=== PATIENT | male | born 1960 | race Caucasian/White ===

== ENCOUNTER → 2020-06-20 10:43 | Outpatient (CLI) | payer MEDICARE, SELFPAY ==
--- NOTE | 2020-03-28 19:51 | HP.PCM_ITS ---
History and Physical Date of Admission: 03/29/20 Jonathan Day 1960 ? CHIEF COMPLAINT: screening for colon cancer ? HPI: The patient is a 59 year old male who presents for consideration of screening for colon cancer with colonoscopy. Denies previous colonoscopy. Denies blood in stools. Denies changes in bowel habits. Denies unintentional weight loss. Denies family history of colon cancer. He had previous [facility] with placement of stents in 2010, has had no problems since Presently on baby aspirin only, no plavix. He had history of pancreatic cancer, s/p Whipple procedure. ? ? PAST MEDICAL HISTORY CAD (coronary artery disease) Sees Dr. Pittman [facility] 2010, 2 stents Exocrine pancreatic insufficiency 03/23/2014 HTN (hypertension) ? Hyperlipidemia ? History of Pancreatic cancer (HCC) ? Stented coronary artery -?mid LAD REJI,proximal-mid RCA stent Diabetes type 2 ? PAST SURGICAL HISTORY EGD W/O OR W/BRUSH/WASH ? 09/12/15 ENDOSCOPIC ULTRASOUND W/FNA_*FL ? 01/23/2014 ERCP W/O BRUSH/WASH SPECIMEN 01/17/14 Cholangiopancreatography (ERCP) [facility] inpt Placement of 2 coranary stents Whipple procedure 02/20/2014 ? ? Current Outpatient Prescriptions: metFORMIN ER (GLUCOPHAGE XR) 500 mg 24 hr tablet Take 2 tablets by mouth twice daily before meals. glimepiride (AMARYL) 4 mg tablet Take 1 tablet by mouth daily with breakfast. CREON 24,000-76,000 -120,000 unit cpDR TAKE 3 CAPSULES BY MOUTH THREE TIMES DAILY WITH MEALS atorvastatin (LIPITOR) 40 mg tablet Take 1 tablet by mouth once daily. metoprolol tartrate, short acting, (LOPRESSOR) 25 mg tablet Take 1 tablet by mouth twice daily. enteric contrast (will be provided with radiology test) For CT CHESTABD/PEL W IVCON Routine order Administer, As Directed One Time Only, via Oral, Rectal, both Oral and Rectal, Enteric Tube, Stoma or Indwelling Catheter, Enteric Contrast as designated per enteric contrast guidelines lisinopril-hydrochlorothiazide (PRINZIDE,ZESTORETIC) 20-12.5 mg per tablet Take 1 tablet by mouth once daily. COMPOUNDED PRESCRIPTION Abdominal hernia Velcro wrap. # one DX: K43.2 Omeprazole (PRILOSEC) 40 mg capsule Take 1 capsule by mouth once daily. BABY ASPIRIN ORAL Take 81 mg by mouth once daily. ? ? ALLERGIES: Patient has no known allergies. ? PERSONAL HISTORY: Social History Marital status: Spouse name: Years of education: Number of children: Social History Main Topics Smoking status: Never Smoker Smokeless tobacco: Never Used Alcohol use: Yes Comment: 2-3 beers daily, occasional shot of crown Drug use: No ? FAMILY HISTORY ? Hypertension Mother ? ? Breast Cancer Sister ? ? ? REVIEW OF SYSTEMS: General: The patient denies fatigue, denies weight loss, denies weight gain, denies feeling hot, and denies feelings of cold. Eyes: The patient denies glaucoma, denies eye injury/surgery, does not wear glasses or contacts. Ear/Nose/Throat: The patient denies allergies, denies hayfever, denies ear infections, and denies bloody noses. Cardiovascular: The patient denies chest pain, NOTES heart disease, denies high blood pressure,NOTES cardiac stent, denies prior heart attack, denies irregular heart beat, denies high cholesterol, denies poor circulation, denies heart failure, other cardiac issues, denies claudication, denies cold feet, denies peripheral arterial stent. Respiratory: The patient denies tuberculosis, denies pneumonia, denies checo quent cough, denies pulmonary embolism, denies shortness of breath, and denies coughing up blood. Gastrointestinal: The patient denies difficulty swallowing, denies acid reflux, denies ulcers, denies vomiting, denies jaundice/hepatitis, denies gallbladder problems, denies black or tarry stools, denies hemorrhoids, denies bleeding from rectum, denies diverticulitis, denies constipation, denies diarrhea, denies loss of stool control, and NOTES hernias. Kidney/Bladder: The patient denies kidney stones, denies urine infections, and denies bloody urine. Skin: The patient denies a history of skin cancer, denies bleeding/changing moles, and denies a history of skin rash. Neurologic: The patient denies a history of epilepsy/convulsions, denies headaches, denies head/spinal injuries, and denies stroke/TIA. Psychiatric: has been feeling depressed, denies psychiatric medications, and denies voices, denies substance abuse. Endocrine: The patient denies thyroid disorders, NOTES diabetes, and denies hormonal problems. Hematologic: The patient denies a history of bruising, denies bleeding, and denies anemia, denies blood clots. Infections: The patient denies a history of measles and mumps, denies rheumatic fever, and denies sexually transmitted diseases. Musculoskeletal: has neck pain, NOTES back problems, denies sciatica, denies knee/foot trouble, denies arthritis, or denies gout. ? PHYSICAL EXAMINATION: General: The patient is 57 year old male, well nourished, well hydrated in no acute distress. The patient is oriented to time, place, and person. VITALS: Blood pressure 106/78, pulse 72, Ht: 5'6 weight 201# Head ? Normocephalic. EOM intact with sclera clear and no icterus noted. Mouth with mucus membranes moist. Neck - supple with no jugular venous distention noted. Trachea is midline.. No masses noted. Lungs ? clear to auscultation. Normal breath sounds. No rales/rhonchi/wheezing noted. No labored breathing noted, such as retractions. Heart ? normal S1 and S2 auscultated. No rubs/clicks/murmurs noted. Regular rate. Abdomen ? soft and benign. Normal bowel sounds. No abdominal bruits noted. No distention or tympany noted. Difficult to determine if any masses or organomegaly due to body habitus. Extremities ? no calf tenderness noted. No pitting edema noted. Skin ? normal skin integrity. Neurological ? gait normal, no focal deficits noted Psych ? calm and appropriate ? ? IMPRESSION: screening for colon cancer via colonoscopy ? PLAN: I have discussed the above with the patient. I have offered evaluation with colonoscopy. I have explained the procedure to the patient. I have counseled the patient as to the risks of the procedure, including but not limited to: infection, bleeding, injury to any intraabdominal organs such as liver/spleen, perforation of the GI tract, inability to complete the procedure, complications of anesthesia, etc. ? the patient understands. The patient was offered a surgery/procedure. The provider and patient have discussed in detail the risk of exposure to and/or potential harm posed by the COVID-19 virus with having a surgery/procedure at this time versus the risk of delaying the surgery/procedure. It is not possible to know either the risk of delaying the surgery or procedure or chance of getting an infection with perfect accuracy, but a joint decision was made between the patient and the provider to proceed at this time with the scheduled surgery/procedure. The patient wishes to proceed. I have answered all questions to the patient?s satisfaction and the patient has no further questions. . Diagnoses: (Z12.11) Screening for colon cancer (primary encounter diagnosis) (Z79.82) Aspirin long-term use (I25.10, I25.83) Coronary artery disease due to lipid rich plaque
== END ==
PROVIDERS: PCP Family Medicine; Visit Provider Surgery
DX: Z12.11 Encounter for screening for malignant neoplasm of colon (principal); Z53.9 Procedure and treatment not carried out, unspecified reason; I25.10 Atherosclerotic heart disease of native coronary artery without angina pectoris; I25.83 Coronary atherosclerosis due to lipid rich plaque; I10 Essential (primary) hypertension; E78.5 Hyperlipidemia, unspecified; Z79.82 Long term (current) use of aspirin; Z79.84 Long term (current) use of oral hypoglycemic drugs; Z79.899 Other long term (current) drug therapy; I25.2 Old myocardial infarction; Z85.07 Personal history of malignant neoplasm of pancreas; Z95.5 Presence of coronary angioplasty implant and graft; Z90.411 Acquired partial absence of pancreas

== ENCOUNTER → 2023-06-26 | Outpatient (CLI) | payer MEDICARE, SELFPAY ==
--- NOTE | 2023-06-26 07:37 | ECHOD_ITS ---
Reason For Study: CAD/ASHD Procedure This was a 2D Doppler, Color Flow transthoracic echocardiogram. The study was technically difficult. Exam performed in department. Left Ventricle Normal LV size. Mild concentric left ventricular hypertrophy. Mild to moderate global left ventricular systolic dysfunction. The left ventricular ejection fraction is 40 %. Stage 1 diastolic dysfunction. Right Ventricle The right ventricle is not well visualized. Mild global right ventricular systolic dysfunction. Atria The left and right atria are normal. Mitral Valve Trivial mitral valve insufficiency. Tricuspid Valve The tricuspid valve is not well visualized. Aortic Valve Trisinus/trileaflet aortic valve. Mild focal aortic valve calcification. Pulmonic Valve The pulmonic valve is not well visualized. Great Vessels Mild to moderately dilated aortic root. Pericardium/Pleural No pericardial effusion. MMode/2D Measurements & Calculations LVIDd: 4.9 cm IVSd: 1.1 cm Ao root diam: 4.0 cm LVIDs: 3.9 cm LVPWd: 1.2 cm FS: 20.2 % LAV(MOD-sp2): 47.7 ml LVAd ap4: 29.8 cm2 SV(MOD-sp4): 41.0 ml LVLd ap4: 7.9 cm EDV(MOD-sp4): 92.8 ml EDV(sp4-el): 94.8 ml LVAs ap4: 21.0 cm2 LVLs ap4: 7.0 cm ESV(MOD-sp4): 51.8 ml ESV(sp4-el): 54.0 ml EF(MOD-sp4): 44.2 % EF(sp4-el): 43.0 % SV(sp4-el): 40.8 ml LA dimension(2D): 3.7 cm TAPSE: 2.3 cm Time Measurements MV dec time: 0.17 sec Doppler Measurements & Calculations MV E max raad: 47.7 cm/sec Lat Peak E' Raad: 4.4 cm/sec Med Peak E' Raad: 4.0 cm/sec MV A max raad: 66.5 cm/sec E/E' lat: 11.0 E/E' med: 11.8 MV E/A: 0.72 MV V2 max: 70.2 cm/sec MV dec slope: 308.0 cm/sec2 Ao V2 max: 68.4 cm/sec MV max P.0 mmHg Ao max P.9 mmHg MV V2 mean: 46.1 cm/sec Ao V2 mean: 49.1 cm/sec MV mean P.95 mmHg Ao mean P.1 mmHg MV V2 VTI: 16.9 cm Ao V2 VTI: 14.7 cm AV (velocity ratio): 0.98 LV V1 max: 74.5 cm/sec PA V2 max: 66.3 cm/sec LV V1 max P.2 mmHg PA V2 mean: 44.4 cm/sec LV V1 mean P.1 mmHg LV V1 mean: 49.5 cm/sec LV V1 VTI: 14.4 cm ECHO/Echo Complete Interpretation Summary The study was technically difficult. Mild concentric left ventricular hypertrophy. Mild to moderate global left ventricular systolic dysfunction. The left ventricular ejection fraction is 40 %. Stage 1 diastolic dysfunction. Mild global right ventricular systolic dysfunction. Mild focal aortic valve calcification. Mild to moderately dilated aortic root. Recommend CT scan for further evaluatio n Ordering Physician: Anthony Velazquez Referring Physician: Anthony Velazquez Performed By: Ninfa Bingham RCS
--- OUTSIDE RECORDS SUMMARY | 2023-06-26 07:41 | XMS RPT_ITS | CCD ---
Author Name Unknown Address [address] [place] [address] Organization [facility] Care Team Providers Care Pharmacy Teacher Name Role Phone Mo Johnston MD Primary Care Provider Yaya LEE, Darell Mckenna Unavailable Rebecca Salcedo)(Hist) Unavailable Lili Buckley RN Unavailable PROVIDER, UNKNOWN Attending Unavailable PROVIDER, UNKNOWN Admitting Unavailable MO JOHNSTON Primary Care Unavailable LAURITA THURSTON Referring Unavailable NELLIE OLIVAREZ Attending Unavailable NELLIE OLIAVREZ Admitting Unavailable LAURITA THURSTON Attending Unavailable MO JOHNSTON Primary Care Unavailable Mo Johnston MD Primary Care Provider [phone] MO JOHNSTON Primary Care Unavailable JESSICA GOOD Referring Unavailable MO JOHNSTON Primary Care Unavailable JESSICA GOOD Attending Unavailable JESSICA GOOD Referring Unavailable MO JOHNSTON Primary Care Unavailable MO JOHNSTON Attending Unavailable MO JOHNSTON Referring Unavailable MO JOHNSTON Primary Care Unavailable GAUDENCIO CHAND Attending Unavaila ble MO JOHNSTON Primary Care Unavailable JESSICA GOOD Referring Unavailable OM JOHNSTON Primary Care Unavailable JESSICA GOOD Referring Unavailable MO JOHNSTON Primary Care Unavailable JESSICA GOOD Referring Unavailable ALBINA AGUIRRE Attending Unavailable MO JOHNSTON Referring Unavailable MO JOHNSTON Primary Care Unavailable MO JOHNSTON Primary Care Unavailable MO JOHNSTON Attending Unavailable MO JOHNSTON Attending Unavailable MO JOHNSTON Primary Care Unavailable RUSTY JOHNSTONREY A Primary Care Unavailable MO JOHNSTON Referring Unavailable MO JOHNSTON Primary Care Unavailable JESSICA GOOD Referring Unavailable MO JOHNSTON Primary Care Unavailable MO JOHNSTON Attending Unavailable MO JOHNSTON Referring Unavailable MO JOHNSTON Primary Care Unavailable Medications Current Medications Medication Drug Class(es) Dates Sig (Normalized) Sig (Original) atorvastatin 80 mg oral tablet (20 sources) HMG-CoA Reductase Inhibitor Start: 04-07-2023 End: 07-06-2023 take 1 tablet by mouth once daily at bedtime atorvastatin (LIPITOR) 80 mg tablet Take 1 tablet by mouth daily at bedtime. 90 tablet 0 04/07/2023 07/06/2023 Active Completed/Discontinued Medications Medication Drug Class(es) Dates Sig (Normalized) Sig (Original) amylase 125461 unt / lipase 82710 unt / protease 32474 unt delayed release oral capsule (20 sources) Start: 04-23-2023 take 3 capsules by mouth three times daily at mealtime [id number]-[id number] ylase (CREON) 24,000-76,000 -120,000 unit delayed release capsule Indications: Malignant neoplasm of head of pancreas (HCC) Take 3 capsules by mouth three times a day with meals. 270 capsule 5 04/23/2023 Active Problems Active Problems Problem Classification Problem Date Documented Date Episodic/Chronic Acute myocardial infarction (4 [address]) ST elevation (STEMI) myocardial infarction of unspecified site; Translations: [Myocardial infarction] Onset: 04-06-2023 04-07-2023 Chronic Cancer of pancreas (20 sources) Malignant tumor of pancreas; Translations: [Malignant neoplasm of pancreas, unspecified] Onset: 01-31-2014 01-04-2020 Chronic Cataract (1 source) Age-related nuclear cataract, bilateral; Translations: [Nuclear sclerosis of both eyes] Onset: 09-22-2022 Chronic Complications of surgical procedures or medical care (4 sources) Secondary endocrine diabetes mellitus; 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] Onset: 10-13-2022 Chronic Coronary atherosclerosis and other heart disease (20 sources) Coronary atherosclerosis; Translations: [Atherosclerotic heart disease of [place] coronary artery without angina pectoris] Onset: 06-06-2015 07-04-2020 Chronic Coronary atherosclerosis and other heart disease (20 sources) Stented coronary artery; Translations: [Presence of coronary angioplasty implant and graft] 04-09-2021 Episodic Diabetes mellitus with complications (20 sources) Type II diabetes mellitus uncontrolled; Translations: [Type 2 diabetes mellitus with hyperglycemia] Onset: 09-02-2016 Chronic Diabetes mellitus without complication (20 sources) Diabetes mellitus type 2 without retinopathy; Translations: [Type 2 diabetes mellitus without complications] Onset: 12-15-2017 06-23-2018 Chronic Disorders of lipid metabolism (20 sources) Mixed hyperlipidemia; Translations: [Mixed hyperlipidemia] Onset: 06-06-2015 06-06-2015 Chronic Esophageal disorders (20 sources) Gastroesophageal reflux disease without esophagitis; Translations: [Gastro-esophageal reflux disease without esophagitis] Onset: 07-05-2018 07-05-2018 Chronic Essential hypertension (20 sources) Essential hypertension; Translations: [Essential (primary) hypertension] Onset: 06-06-2015 06-06-2015 Chronic Hepatitis (20 sources) Nonalcoholic steatohepatitis; Translations: [Nonalcoholic steatohepatitis (HERNANDEZ)] Onset: 05-28-2022 05-28-2022 Chronic Immunizations and screening for infectious disease (1 source) Vaccination needed; Translations: [Encounter for immunization] Episodic Miscellaneous mental health disorders (20 sources) Primary insomnia; Translations: [Primary insomnia] Onset: 07-04-2020 01-08-2021 Chronic Other circulatory disease (1 source) Abnormal peripheral pulse; Translations: [Other specified symptoms and signs involving the circulatory and respiratory systems] Episodic Other connective tissue disease (1 source) Muscle pain; Translations: [Myalgia, unspecified site] 10-29-2022 Episodic Other eye disorders (20 sources) Bilateral vitreous floaters; Translations: [Other vitreous opacities, bilateral] Onset: 12-15-2017 06-23-2018 Chronic Other eye disorders (1 source) Crystalline deposits in vitreous body, right eye; Translations: [Asteroid hyalosis of right eye] Onset: 09-22-2022 Chronic Other eye disorders (1 source) Other vitreous opacities, bilateral; Translations: [Vitreous floaters of both eyes] Onset: 06-23-2018 Chronic Other liver diseases (2 sources) Steatosis of liver; Translations: [Fatty (change of) liver, not elsewhere classified] Onset: 04-07-2023 04-07-2023 Chronic Other lower respiratory disease (1 source) Blue toes; Translations: [Cyanosis] Episodic Other nutritional; endocrine; and metabolic disorders (2 sources) Obese class II; Translations: [Obesity, unspecified] Onset: 04-06-2023 04-07-2023 Chronic Residual codes; unclassified (1 source) Acquired total absence of pancreas; Translations: [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)] Onset: 10-13-2022 Chronic Past or Other Problems Problem Classification Problem Date Documented Da te Episodic/Chronic Abdominal hernia (20 sources) Hernia of anterior abdominal wall; Translations: [Ventral hernia without obstruction or gangrene] Onset: 06-28-2019 01-08-2021 Episodic Coma; stupor; and brain damage (20 sources) Daytime somnolence; Translations: [Somnolence] Onset: 06-28-2019 06-28-2019 Episodic Fluid and electrolyte disorders (20 sources) Hyperkalemia; Translations: [Hyperkalemia] Onset: 01-16-2021 01-16-2021 Episodic Neoplasms of unspecified nature or uncertain behavior (20 sources) Lesion of eyelid; Translations: [Neoplasm of unspecified behavior of bone, soft tissue, and skin] Onset: 12-15-2017 12-28-2018 Episodic Other aftercare (20 sources) Patient encounter status; Translations: [Other termite exterminator helper (current) drug therapy] Onset: 03-04-2016 01-04-2020 Episodic Other connective tissue disease (13 sources) Plantar fasciitis; Translations: [Plantar fascial fibromatosis] Onset: 10-29-2022 10-29-2022 Episodic Other connective tissue disease (1 source) Myalgia, unspecified site; Translations: [Myalgia] Onset: 10-29-2022 Episodic Other lower respiratory disease (20 sources) Apnea; Translations: [Apnea, not elsewhere classified] Onset: 06-28-2019 06-28-2019 Episodic Other male genital disorders (20 sources) Disorder of prostate; Translations: [Disorder of prostate, unspecified] Onset: 09-09-2016 09-09-2016 Episodic Other screening for suspected conditions (not mental disorders or infectious disease) (20 sources) Other specified abnormal findings of blood chemistry; Translations: [Other abnormal blood chemistry] Onset: 05-11-2022 05-11-2022 Episodic Other skin disorders (20 sources) Callosity; Translations: [Corns and callosities] Onset: 06-28-2019 01-04-2020 Episodic Pancreatic disorders (not diabetes) (20 sources) Exocrine pancreatic insufficiency; Translations: [Exocrine pancreatic insufficiency] Onset: 03-23-2014 03-23-2014 Episodic Spondylosis; intervertebral disc disorders; other back problems (20 sources) Backache; Translations: [Dorsalgia, unspecified] Onset: 06-06-2015 03-04-2016 Episodic Results Test Name Value Interpretation Reference Range Facil ity Vital Signs Date Time Vital Sign Value Performing Clinician Raudeli david 05-22-2023 08:22-0500 Body height 170.2 cm Gaudencio Chand MD Work Phone: [facility] 05-22-2023 08:22-0500 Body weight 89.54 kg Gaudencio Chand MD Work Phone: [facility] 05-22-2023 08:22-0500 Diastolic blood pressure 84 mm[Hg] Gaudencio Chand MD Work Phone: [facility] 05-22-2023 08:22-0500 Respiratory rate 18 /min Gaudencio Chand MD Work Phone: [facility] 05-22-2023 08:22-0500 Systolic blood pressure 148 mm[Hg] Gaudencio Chand MD Work Phone: [facility] 10-29-2022 08:25-0400 Body temperature 97.7 [degF] Mo Johnston MD Work Phone: [facility] 10-29-2022 08:25-0400 Body weight 89.81 kg Mo Johnston MD Work Phone: [facility] 10-29-2022 08:25-0400 Diastolic blood pressure 86 mm[Hg] Mo Johnston MD Work Phone: [facility] 10-29-2022 08:25-0400 Heart rate 80 /min Mo Johnston MD Work Phone: [facility] 10-29-2022 08:25-0400 Respiratory rate 18 /min Mo Johnston MD Work Phone: [facility] 10-29-2022 08:25-0400 Systolic blood pressure 122 mm[Hg] Mo Johnston MD Work Phone: [facility] 09-15-2022 08:16-0400 Body weight 89.36 kg Mo Johnston MD Work Phone: [facility] 09-15-2022 08:16-0400 Diastolic blood pressure 86 mm[Hg] Mo Johnston MD Work Phone: [facility] 09-15-2022 08:16-0400 Heart rate 88 /min Mo Johnston MD Work Phone: [facility] 09-15-2022 08:16-0400 Respiratory rate 18 /min Mo Johnston MD Work Phone: [facility] 09-15-2022 08:16-0400 Systolic blood pressure 126 mm[Hg] Mo Johnston MD Work Phone: [facility] 05-08-2022 08:36-0500 Body height 165.7 cm Mo Johnston MD Work Phone: [facility] 05-08-2022 08:36-0500 Body weight 91.17 kg Mo Johnston MD Work Phone: [facility] 05-08-2022 08:36-0500 Diastolic blood pressure 78 mm[Hg] Mo Johnston MD Work Phone: [facility] 05-08-2022 08:36-0500 Heart rate 84 /min Mo Johnston MD Work Phone: [facility] 05-08-2022 08:36-0500 Respiratory rate 16 /min Mo Johnston MD Work Phone: [facility] 05-08-2022 08:36-0500 Systolic blood pressure 134 mm[Hg] Mo Johnston MD Work Phone: [facility] 04-16-2022 10:32-0500 Body height 166.4 cm Jessica Good APRN.CNP Work Phone: [facility] 04-16-2022 10:32-0500 Body temperature 97.11 [degF] Jessica Bowmanenter CHORE TENDER.FREELANCE DISPLAYER Work Phone: [facility] 04-16-2022 10:32-0500 Body weight 93.44 kg Jessica Good CHORE TENDER.FREELANCE DISPLAYER Work Phone: [facility] 04-16-2022 10:32-0500 Diastolic blood pressure 94 mm[Hg] Jessica Good CHORE TENDER.FREELANCE DISPLAYER Work Phone: [facility] 04-16-2022 10:32-0500 Heart rate 74 /min [place] Good CHORE TENDER.FREELANCE DISPLAYER Work Phone: [facility] 04-16-2022 10:32-0500 SaO2% (BldA) [Mass fraction] 97 % Jessica Bowmanenter CHORE TENDER.FREELANCE DISPLAYER Work Phone: [facility] 04-16-2022 10:32-0500 Systolic blood pressure 134 mm[Hg] Jessica Good CHORE TENDER.FREELANCE DISPLAYER Work Phone: [facility] 08-26-2021 10:10-0400 Diastolic blood pressure 82 mm[Hg] Mo Johnston MD Work Phone: [facility] 08-26-2021 10:10-0400 Systolic blood pressure 118 mm[Hg] Mo Johnston MD Work Phone: [facility] 08-26-2021 09:09-0400 Body weight 87.09 kg Mo Johnston MD Work Phone: [facility] 08-26-2021 09:09-0400 Heart rate 76 /min Mo Johnston MD Work Phone: [facility] 08-26-2021 09:09-0400 Respiratory rate 20 /min Mo Johnston MD Work Phone: [facility] Encounters Encounter Date Encounter Type Care Provider Facility Start: 06-24-2023 End: 06-24-2023 ambulatory MO JOHNSTON Facility:[facility] Start: 05-22-2023 End: 05-22-2023 ambulatory MO JOHNSTON Facility:[facility] Start: 05-22-2023 End: 05-22-2023 Patient encounter procedure Gaudencio Chand MD Work Phone: Endocrinology Procedures Date Procedure Procedure Detail Performing Clinician Start: 09-15-2022 [email or web address] COVI D-19 BIVALENT VACCINE, AGE 12+ YR Mo Johnston MD Work Phone: Start: 05-23-2022 Us abdominal real ti me w/image limited Mo Johnston MD Work Phone: Start: 04-10-2022 Ct abdomen & pelvis w/contrast material Jessica Good CHORE TENDER.FREELANCE DISPLAYER Work Phone: Plan of Treatment Date Care Activity Detail Author Start: 11-22-2027 PNEUMOCOCCAL (3 - PP SV23 if available, else PCV20) PNEUMOCOCCAL (3 - PPSV23 if available, else PCV20) [facility] Start: 11-22-2027 PNEUMOCOCCAL (3 - PP SV23 or PCV20) PNEUMOCOCCAL (3 - PPSV23 or PCV20) [facility] Start: 11-22-2027 Pneumococcal vaccination [facility] Start: 05-08-2027 PROSTATE CANCER SCRE ENING DISCUSSION PROSTATE CANCER SCREENING DISCUSSION [facility] Start: 05-08-2027 Prostate specific an tigen measurement Prostate Cancer Screening Discussion [facility] Start: 01-08-2026 PROSTATE CANCER SCRE ENING DISCUSSION PROSTATE CANCER SCREENING DISCUSSION [facility] Start: 04-23-2024 Annual PCP Team Suppression Crew Leader jaron Disease Visit Annual PCP Team Chronic Disease Visit [facility] Start: 04-07-2024 Hepatitis B surface antibody level LDL Cholesterol [facility] Start: 10-30-2023 ANNUAL PCP TEAM BOTTOM BRUSHER JARON DISEASE VISIT ANNUAL PCP TEAM CHRONIC DISEASE VISIT [facility] Start: 10-14-2023 Hepatitis B screening URINE AL BUMIN:CREATININE RATIO [facility] Start: 10-14-2023 Hepatitis B surface antibody level LDL CHOLESTEROL [facility] Start: 09-23-2023 Glaucoma screening Dilated Retinal E xam [facility] Start: 09-23-2023 Hepatitis C antibody , confirmatory test DILATED RETINAL EXAM [facility] Start: 09-16-2023 ANNUAL PCP TEAM BOTTOM BRUSHER JARON DISEASE VISIT ANNUAL PCP TEAM CHRONIC DISEASE VISIT [facility] Start: 07-06-2023 Hemoglobin A1c measurement HbA1C [facility] Start: 06-24-2023 PNEUMOCOCCAL (3 - PP SV23 or PCV20) PNEUMOCOCCAL (3 - PPSV23 or PCV20) [facility] Start: 05-08-2023 3 comp foot exam completed DIABETIC FOOT EXAM [facility] Start: 05-08-2023 ANNUAL PCP TEAM BOTTOM BRUSHER JARON DISEASE VISIT ANNUAL PCP TEAM CHRONIC DISEASE VISIT [facility] Start: 05-08-2023 BP CONTROLLED (<130/80) BP CONTROLLE D (<130/80) [facility] Start: 05-08-2023 Diabetic foot examination Diabetic F oot Exam [facility] Start: 05-08-2023 Hepatitis B screening URINE AL BUMIN:CREATININE RATIO [facility] Start: 05-08-2023 Hepatitis B surface antibody level LDL CHOLESTEROL [facility] Start: 05-08-2023 SHINGRIX VACCINE (1 of 2) SHINGRIX V ACCINE (1 of 2) [facility] Immunizations Immunization Date Immunization Notes Care Provider Fa cility 01-09-2023 COVID-19 vaccine, ag e 12+ yr, season (PFIZER-BIONTECH) Mo Johnston MD Work Phone: [facility] 12-14-2022 influenza, injectabl e, quadrivalent, contains preservative Sulma Ponce [facility] 09-15-2022 COVID-19 vaccine, ag e 12+ yr, bivalent (PFIZER-BIONTECH) Jasmin Dunham APRN.CNP Work Phone: [facility] 03-07-2022 influenza, high dose seasonal, preservative-free Mo Johnston MD Work Phone: [facility] Work Phone: 03-06-2021 influenza, injectabl e, quadrivalent, preservative free Mo Johnston MD Work Phone: [facility] 01-08-2021 COVID-19 vaccine, ag e 12+ yr (PFIZER-BIONTECH - PURPLE TOP) Mo Johnston MD Work Phone: [facility] 01-04-2020 influenza, injectabl e, quadrivalent, contains preservative Mo Johnston MD Work Phone: [facility] 12-28-2018 influenza, injectabl e, quadrivalent, contains preservative Mo Johnston MD Work Phone: [facility] 06-23-2018 pneumococcal polysaccharide vaccine, 23 valent Mo Johnston MD Work Phone: [facility] 01-13-2018 influenza, injectabl e, quadrivalent, preservative free Mo Johnston MD Work Phone: [facility] 06-29-2017 pneumococcal conjuga te vaccine, 13 valent Mo Johnston MD Work Phone: [facility] 01-26-2017 influenza, injectabl e, quadrivalent, contains preservative Mo Johnston MD Work Phone: [facility] Work Phone: 03-04-2016 influenza, injectabl e, quadrivalent, contains preservative Mo Johnston MD Work Phone: [facility] 02-19-2015 influenza virus vacc ine, unspecified formulation Mo Johnston MD Work Phone: [facility] Work Phone: 01-11-2014 influenza virus vacc ine, unspecified formulation Mo Johnston MD Work Phone: [facility] 05-13-2013 influenza virus vacc ine, unspecified formulation Mo Johnston MD Work Phone: [facility] Work Phone: Payers Date Payer Category Payer Medicare AETNA MEDICARE A ETNA MEDICARE O [id number] 2021-Present [phone] [address] [place] [address] [facility] [id number] 2021 Medicare AETNA MEDICARE A ETNA MEDICARE O [id number] 2021-Present [phone] [address] [place] [address] [facility] [id number] 2021 Medicare [id number] 2020 Medicare HUMANA MEDICARE HUMANA GOLD PLUS [id number] 2020-2021 [address] [address] [place] [address] HMO [id number] 1960 Unknown [id number] Social History Date Type Detail Facility Start: 03-22-2014 Tobacco smoking stat [facility] Never smoked tobacco [facility] Start: 03-22-2014 Tobacco use and exposure Smokeless tobacco non-user [facility] Start: 06-13-2021 End: 05-22-2023 Alcohol intake Current drinker of alcohol (finding) [facility] Start: 09-06-2015 History SDOH Alcohol Comment 2-3 beers daily, occasional shot of crown [facility] Start: 1960 Sex Assigned At Not on file C [facility] Start: 04-20-2021 End: 05-20-2021 Exposure to SARS-CoV-2 (event) Not sure [facility] Start: 01-13-2022 End: 01-23-2022 Exposure to SARS-CoV-2 (event) Unable to assess [facility] Start: 09-05-2022 End: 09-22-2022 History of Social function [facility] Work Phone: Start: 09-05-2022 End: 09-22-2022 Tobacco use panel [facility] Work Phone: Adult Depression Screening Assessment 0 [facility] Work Phone: (I/We) worried wheth er (my/our) food would run out before (I/we) got money to buy more. Never true [facility] Work Phone: In the past 12 month s, was there a time when you were not able to pay the mortgage or rent on time? No [facility] Work Phone: Medical Equipment Procedure Code Equipment Code Equipment Origin al Text Equipment Identifier Dates Start: 04-24-2021 End: 05-28-2022 Clinical Notes 07-24-2021 to 05-22-2023 Patient InstructionsBeGaudencio wells MD - 05/22/2023 8:47 AM Ena Warner LPN - 05/14/2023 2:01 PM ESTTelephone Encounter - Mo Johnston MD - 03/17/2023 4:18 PM EST Note Date & Type Note Facility 05-22-2023 Note HNO ID: [id number] Author: GAUDENCIO CHAND MD Service: ? Author Type: Physician Type: Progress Notes Filed: 05/22/2023 12:34 Note Text: [facility] Initial Clinic Visit Note Referred by: Mo Johnston MD Chief complaint: Uncontrolled Diabetes Mellitus s/p pancreatectomy My final recommendations will be communicated back to the requesting physician by way of shared medical record or letter via US mail. History of present illness: This is a 62 year old male presenting as a new patient to me for evaluation and management of diabetes mellitus acquired likely secondary to pancreatectomy (in 2013) due to pancreatic cancer. He was diagnosed with DM in 2017 initially She was seen by Endocrinology in the past by Jasmin Dunham APRN. FREELANCE DISPLAYER here in [facility] 05/2022. In the last one year he was not following any Admitting Office Escort, and his PCP was managing his diabetes. In addition, he also has a history of HTN, HLD, CAD s/p 6 stents (2 stents in 2010 and 4 stents on second ME in Mar 2023) History copied from chart documentation in last endo note 05/28/2022: Jonathan Montanez is a 61 year old male who presents here today for follow up pancreas cancer. Per Dr. Skaggs's previous note: H/o HTN and CAD (ME 2010; treated with PCI with stent x2) who developed painless jaundice. CT revealed dilatation of both the biliary tree and pancreatic ductal system. ERCP showed a distal obstruction and a stent was placed. [facility] 01/23/2014 which showed a 3.3 cm lesion with encroachment upon the portal vein. The FNA results revealed adenocarcinoma. Underwent diagnostic laparoscopy, laparoscopic liver biopsy (Segment IV) and classic pancreaticoduodenectomy 03/22/2014. Pathology: 1. Liver, biopsy (A) - Benign von Meyenberg complexes. - No evidence of malignancy. 2. Duodenal wall, biopsy (B) - Fibroadipose tissue with acute and chronic inflammation. - No evidence of malignancy. 3. Bile duct margin, excision (C) - Negative for dysplasia or malignancy. 4. Pancreatic neck margin, excision (D) - Positive for carcinoma. 5. Whipple with gallbladder, pancreaticoduodenectomy with cholecystectomy (E) - Invasive well-differentiated adenocarcinoma of the pancreas. - See synoptic report. - Gallbladder with chronic cholecystitis, cholesterolosis and acute fibrinous serositis. 6. Pancreatic neck, new margin, excision (F) - Positive for carcinoma with perineural invasion. 7. Extended pancreatic neck, excision (G) - Invasive adenocarcinoma. 8. SMA margin, excision (H) - SMA and portal veins margins free of tumor. 9. Newest pancreatic margin, excision (I) - Negative for tumor. 10. Pancreatic body, excision (J) - Negative for tumor. He has been on insulin since diagnosis, but he could not give me the time line of addition of other medications No Hospitalizations for DKA or HHS No family history of diabetes mellitus Has poor control for a long time. Had ME during 2022 had 4 stents Symptoms -Polyuria: no -Polydipsia: no -Weight changes:no -No tingling or numbness in feet Complications: Cardiovascular -- Yes HTN, HLP, CAD with ME most recently in Mar 2023 Statin Use -- Yes Asprin use- Yes, on dual antiplatelet medications at this time Retinopathy -- No, last exam likely in June 2022 per patient. Chart review shows optometry appt in 09/2022, but he could not tell me if he has seen an banquet server on call or retina specialist in the past. No retinopathy per patient and documentation in 09/2022 Nephropathy -- No- Alb/creatine in 08/2022 at 17 mg/g of Cr CELENA/ARB Use --lisinopril 10 mg once daily Polyneuropathy -- Denies Obesity -- Yes Other -- No . Diabetes Medications -Current regimen: Insulin Tresiba U-100 32 units once at bedtime, insulin Fiasp 5 units 3 times daily with meals, Trulicity 3 mg once weekly, metformin XR 1000 mg twice daily -Misses doses: None -Skips melas- no -No adverse medication effects -Rotating injection sites- yes, administers on abdomen - Previously Used DM Meds: Yes Was on Ozempic but was on back ordered and had to switch to Trulicity, does not remember how long ago reports that other people had to lose weight more than him which is wrong - takes Trulicity on Thursday - does not check BG at home - Dexcom was not covered previously - Reports that his pay is 1500 per month and reports that I should know that before I ask him about blood glucose checks -Hypoglycemic episodes: no . Lifestyle -Exercise: walking 45 mins every morning -Diet: Breakfast: sugar free oat meal, half a bagel with pea nut butter Lunch: salad and meat or chicken Dinner: could be anything, because at that time is home Snacks: nuts at 2 to 3 pm Diet pop, water, gaterade ROS: Pertinent as per HPI Past Medical History PAST MEDICAL HISTORY Diagnosis Date Cervical pain (neck) (more content not included)... [facility] 05-22-2023 Instructions Gaudencio Chand MD - 05/22/2023 9:08 AM EST Increase Tresiba to 36 units and increase Fiasp to 10 units with each meal documented in this encounter [facility] 05-22-2023 History of Present illness Narrative [facility] Initial Clinic Visit Note Referred by: Mo Johnston MD Chief complaint: Uncontrolled Diabetes Mellitus s/p pancreatectomy My final recommendations will be communicated back to the requesting physician by way of shared medical record or letter via US mail. History of present illness: This is a 62 year old male presenting as a new patient to me for evaluation and management of diabetes mellitus acquired likely secondary to pancreatectomy (in 2013) due to pancreatic cancer. He was diagnosed with DM in 2017 initially She was seen by Endocrinology in the past by Jasmin Dunham APRN. 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 In the last one year he was not following any Admitting Office Escort, and his PCP was managing his diabetes. In addition, he also has a history of HTN, HLD, CAD s/p 6 stents (2 stents in 2010 and 4 stents on second ME in Mar 2023) History copied from chart documentation in last endo note 05/28/2022: Jonathan Montanez is a 61 year old male who presents here today for follow up pancreas cancer. Per Dr. Skaggs's previous note: H/o HTN and CAD (ME 2010; treated with PCI with stent x2) who developed painless jaundice. CT revealed dilatation of both the biliary tree and pancreatic ductal system. ERCP showed a distal obstruction and a stent was placed. [facility] 01/23/2014 which showed a 3.3 cm lesion with encroachment upon the portal vein. The FNA results revealed adenocarcinoma. Underwent diagnostic laparoscopy, laparoscopic liver biopsy (Segment IV) and classic pancreaticoduodenectomy 03/22/2014. Pathology: 1. Liver, biopsy (A) - Benign von Meyenberg complexes. - No evidence of malignancy. 2. Duodenal wall, biopsy (B) - Fibroadipose tissue with acute and chronic inflammation. - No evidence of malignancy. 3. Bile duct margin, excision (C) - Negative for dysplasia or malignancy. 4. Pancreatic neck margin, excision (D) - Positive for carcinoma. 5. Whipple with gallbladder, pancreaticoduodenectomy with cholecystectomy (E) - Invasive well-differentiated adenocarcinoma of the pancreas. - See synoptic report. - Gallbladder with chronic cholecystitis, cholesterolosis and acute fibrinous serositis. 6. Pancreatic neck, new margin, excision (F) - Positive for carcinoma with perineural invasion. 7. Extended pancreatic neck, excision (G) - Invasive adenocarcinoma. 8. SMA margin, excision (H) - SMA and portal veins margins free of tumor. 9. Newest pancreatic margin, excision (I) - Negative for tumor. 10. Pancreatic body, excision (J) - Negative for tumor. He has been on insulin since diagnosis, but he could not give me the time line of addition of other medications No Hospitalizations for DKA or HHS No family history of diabetes mellitus Has poor control for a long time. Had ME during 2022 had 4 stents Symptoms -Polyuria: no -Polydipsia: no -Weight changes:no -No tingling or numbness in feet Complications: Cardiovascular -- Yes HTN, HLP, CAD with ME most recently in Mar 2023 Statin Use -- Yes Asprin use- Yes, on dual antiplatelet medications at this time Retinopathy -- No, last exam likely in June 2022 per patient. Chart review shows optometry appt in 09/2022, but he could not tell me if he has seen an banquet server on call or retina specialist in the past. No retinopathy per patient and documentation in 09/2022 Nephropathy -- No- Alb/creatine in 08/2022 at 17 mg/g of Cr CELENA/ARB Use --lisinopril 10 mg once daily Polyneuropathy -- Denies Obesity -- Yes Other -- No . Diabetes Medications -Current regimen: Insulin Tresiba U-100 32 units once at bedtime, insulin Fiasp 5 units 3 times daily with meals, Trulicity 3 mg once weekly, metformin XR 1000 mg twice daily -Misses doses: None -Skips melas- no -No adverse medication effects -Rotating injection sites- yes, administers on abdomen - Previously Used DM Meds: Yes Was on Ozempic but was on back ordered and had to switch to Trulicity, does not remember how long ago reports that other people had to lose weight more than him which is wrong - takes Trulicity on Thursday - does not check BG at home - Dexcom was not covered previously - Reports that his pay is 1500 per month and reports that I should know that before I ask him about blood glucose checks -Hypoglycemic episodes: no . Lifestyle -Exercise: walking 45 mins every morning -Diet: Breakfast: sugar free oat meal, half a bagel with pea nut butter Lunch: salad and meat or chicken Dinner: could be anything, because at that time is home Snacks: nuts at 2 to 3 pm Diet pop, water, gaterade ROS: Pertinent as per HPI Past Medical History PAST MEDICAL HISTORY Diagnosis Date Cervical pain (neck) 06/06/2015 Corns and callus 06/28/2019 Coronary artery disease due to lipid rich plaque 06/06/2015 Diabetic eye exam (HCC) 01/13/2019 Last done: 01/13/2019 Elevated LFTs 05/11/2022 Essential hypertension Exocrine pancreatic insufficiency 03/23/2014 GERD without esophagitis 07/05/2018 Growth of eyelid 12/15/2017 Incisional hernia, without obstruction or gangrene 06/29/2017 Medicare annual wellness visit, subsequent 06/29/2017 Medicare Part B: 08/11/2016 last done: 05/08/2022 Mixed hyperlipidemia Pancreatic cancer (HCC) Primary insomnia 07/04/2020 Stented coronary artery Mid LAD REJI,proximal-mid RCA stent Type 2 diabetes mellitus without retinopathy (HCC) 12/15/2017 Uncontrolled type 2 diabetes mellitus without complication, without long-term current use of insulin 09/02/2016 Upper back pain on left side 06/06/2015 Ventral hernia without obstruction or gangrene 06/28/2019 Vitreous floaters of both eyes 12/15/2017 Past Surgical History PAST SURGICAL HISTORY Procedure Laterality Date CORONARY STENT EA VESSEL 04/05/2023 4 stents to RCA ENDOSCOPIC ULTRASOUND W/FNA_*FL 01/23/2014 ERCP DX COLLECTION SPECIMEN BRUSHING/WASHING 01/17/2014 Cholangiopancreatography (ERCP) [facility] [place] inpt ESOPHAGOGASTRODUODENOSCOPY TRANSORAL DIAGNOSTIC 09/12/2015 EGD ([facility] [place]) PAST SURGICAL HISTORY OF 2010 2 coranary stents PAST SURGICAL HISTORY OF 02/20/2014 Whipple procedure Family History FAMILY HISTORY Problem Relation Age of Onset Hypertension Mother Breast Cancer Sister Diabetes Brother other (COVID) Brother No Ocular Disease No Family History Social History Social History Tobacco Use Smoking status: Never Smokeless tobacco: Never Vaping Use Vaping Use: Never used Substance Use Topics Alcohol use: Yes Comment: 2-3 beers daily, occasional shot of crown Drug use: No Allergies ALLERGIES No Known Allergies Current Medications Current Outpatient Medications Medication Sig Dispense Refill pfpvar-zduiacsp-ahusbrd (CREON) 24,000-76,000 -120,000 unit delayed release capsule Take 3 capsules by mouth three times a day with meals. 270 capsule 5 lisinopril (ZESTRIL) 10 mg tablet Take 1 tablet by mouth once daily. 90 tablet 1 metoprolol succinate ER (TOPROL XL) 25 mg 24 hr tablet Take 0.5 tablets by mouth once daily. 45 tablet 1 metFORMIN ER (GLUCOPHAGE XR) 500 mg 24 hr tablet Take 2 tablets by mouth two times a day before meals. 360 tablet 1 ticagrelor (BRILINTA) 90 mg tablet Take 1 tablet by mouth two times a day. 60 tablet 11 atorvastatin (LIPITOR) 80 mg tablet Take 1 tablet by mouth daily at bedtime. 90 tablet 0 dulaglutide (TRULICITY) 3 mg/0.5 mL pen injector Inject 3 mg subcutaneously one time a week. 4 Each 5 insulin degludec (TRESIBA FLEXTOUCH U-100) 100 unit/mL (3 mL) injection pen Inject 32 Units subcutaneously daily at bedtime. 15 mL 5 cyanocobalamin (VITAMIN B-12) 1,000 mcg tab Take 1 tablet by mouth once daily. With food 90 tablet 3 insulin aspart, niacinamide, (FIASP FLEXTOUCH U-100 INSULIN) 100 unit/mL (3 mL) pen Inject 5 units with meals 5 Each 3 MEDICAL SUPPLY Sig: Abdominal hernia Velcro wrap. # one DX: K43.2 1 Device 0 BABY ASPIRIN ORAL Take 81 mg by mouth once daily. Blood-Glucose Sensor (DEXCOM G7 SENSOR) valentin Change sensor every 10 days. USE FOR CONTINUOUS GLUCOSE MONITORING. E10.65 (Patient not taking: Reported on 05/22/2023) 10 Each 3 Blood-Glucose Meter,Continuous (DEXCOM G7 FIELD SERVICES MANAGER) [facility] [place] Dispense one seam feller kit. USE FOR CONTINUOUS GLUCOSE MONITORING. E10.65 (Patient not taking: Reported on 05/22/2023) 1 Each 0 Insulin [place], Disposable, (BD TONE 2ND GEN PEN NEEDLE) 32 gauge x 5/32 Use to inject insulin 4 time daily. (Patient not taking: Reported on 05/22/2023) 400 Each 3 Lancets lancets Test 2 times daily, Insulin Dep? Yes E11.9 DM 2 (Patient not taking: Reported on 05/22/2023) 200 Each 4 blood sugar diagnostic (BLOOD GLUCOSE TEST) test strip Test 2 times daily, Insulin Dep? Yes E11.9 DM 2 (Patient not taking: Reported on 05/22/2023) 200 Strip 4 COMPOUNDED PRESCRIPTION Abdominal hernia Velcro wrap. # one DX: K43.2 (Patient not taking: Reported on 05/22/2023) 1 Device 0 No current facility-administered medications for this visit. Labs Component Latest Ref Rng & Units 10/13/2022 04/06/2023 04/07/2023 Protein, Total 6.3 - 8.0 g/dL 7.0 Albumin 3.9 - 4.9 g/dL 4.1 Calcium 8.5 - 10.2 mg/dL 9.6 8.9 Bilirubin, Total 0.2 - 1.3 mg/dL 0.6 Alkaline Phosphatase 38 - 113 U/L 62 AST ALT 10 - 54 U/L 65 (H) Glucose 74 - 99 mg/dL 301 (H) 151 (H) BUN 9 - 24 mg/dL 13 12 Creatinine 0.73 - 1.22 mg/dL 0.76 0.74 Sodium 136 - 144 mmol/L 129 (L) 132 (L) Potassium 3.7 - 5.1 mmol/L 5.0 4.3 Chloride 97 - 105 mmol/L 97 97 CO2 22 - 30 mmol/L 22 26 Anion Gap 9 - 18 mmol/L 10 9 eGFR >=60 mL/min/1.73m 104 104 Cholesterol, Total <200 mg/dL 133 Triglyceride <150 mg/dL 168 (H) HDL Cholesterol >39 mg/dL 46 Non HDL Cholesterol <130 mg/dL 87 Fasting Time hrs 8 VLDL Cholesterol <30 mg/dL 34 (H) TC:HDL Ratio <5.10 2.89 LDL Cholesterol <100 mg/dL 53 LDL:HDL Ratio <2.54 1.15 Total Cholesterol, Nonfasting <200 mg/dL 145 Triglycerides, Nonfasting <150 mg/dL 90 HDL Cholesterol, Nonfasting >39 mg/dL 63 LDL Cholesterol, Nonfasting <100 mg/dL 64 Non HDL Cholesterol, Nonfasting <130 mg/dL 82 VLDL Cholesterol, Nonfasting <30 mg/dL 18 Total Chol/HDL Ratio, Nonfasting <5.10 mg/dL 2.30 LDL/HDL Ratio, Nonfasting <2.54 mg/dL 1.02 Creatinine, Ur Random (UCRR) 20.0 - 300.0 mg/dL 70.1 Albumin, Urine Random mg/L 16.5 Albumin/Creat Ratio <30 mg/g 24 Hemoglobin A1C 4.3 - 5.6 % 13.9 (H) 14.1 (H) Estimated Average Glucose mg/dL 352 358 Vitals: 05/22/23 0822 BP: 148/84 BP Site: Right Arm BP Position: Sitting BP Cuff Size: Regular Adult Resp: 18 Weight: 89.5 kg (197 lb 6.4 oz) Height: 170.2 cm (5' 7 ) Physical Exam GENERAL: Well nourished, obese, well hydrated, in no distress and oriented x 3 EYES: no thyroid eye signs, EOMI NECK: no tenderness and adenopathy THYROID: Non-tender to palpable, no evidence of goiter, no nodules palpable LUNGS: Unlabored on room air HEART: regular rate and rhythm GI: abdomen is soft, nontender, Injections sites without lipodystrophy EXTREMITIES: no edema NEURO: normal strength, no tremor, monofilament testing normal OTHER: Acanthosis None Assessment and Plan Poorly controlled Diabetes Mellitus s/p pancreatectomy -A1c on 04/06/2023 was 14.1% -eGFR on 04/07/2023 was 104 -Current regimen- Insulin Tresiba U-100 32 units once at bedtime, insulin Fiasp 5 units 3 times daily with meals, Trulicity 3 mg once weekly, metformin XR 1000 mg twice daily Plan: - Recommended increasing Tresiba to 36 units daily and Fiasp to 10 units with each meal Continue Trulicity and Metformin as is expecting to help with weight loss - Likely high insulin resistance (high doses of insulin requirement as compared to weight) and also reviewed compliance - Extensively discussed about checking BG to help guide management for better blood sugars control, especially that strips might be less expensive that Trulicity - Dexcom G7 sensor prescriptions sent and recommended sharing the data with us in the next 3 weeks to make any further changes (on Medicare) -Check blood sugar once daily (alternating each day with fasting, prelunch, predinner, and bedtime BG) so glycemic control can be assessed at various times points in the day until Dexcom is available to him -Call if blood sugar consistently <80 mg/dl or >200 mg/dl- advised if fasting more than 200 mg/dl consistently for 3 days, can increase dose of tresiba by 2 units each time upto 40 units daily before the next follow up -Lifestyle modifications have been discussed with the patient - Offered diabetes education but patient declined Hypertension -Today BP 148/84 -Current antihypertensive therapy: Lisinopril 10 mg once daily, metoprolol succinate ER 12.5 mg once daily -Advised low salt diet and follow up with cardiology Dyslipidemia, history of ME -Last lipid panel on 04/07/2023 shows total cholesterol 133 mg/dL, triglycerides 168 mg/dL, LDL 53 mg/dL -Currently on Statin therapy: Atorvastatin 80 mg once daily -Statin associated side effects: Reports no statin associated side effects Obesity Class I with serious comobidity -The main risk factors for current weight include increased consumption of high calorie/process foods, irregular eating patterns, suboptimal physical activity. Our goal is to treat obesity to decrease long-term medical complications, comorbidities and improve lifestyle ---Atleast 150 mins of physical activity per week has been encouraged ---A healthy diet with emphasis on intake of vegetables, fruit, nuts, whole grain, lean animal protein and fish with minimal intake of trans fats, processed meats, refined carbohydrates, and sweetened beverages has been encouraged RTC in 2 months with or Jasmin Dunham APRN I spent a total of 70 minutes on the date of the service which included preparing to see the patient, dima-ni-[id number] patient care, completing clinical documentation, obtaining and/or reviewing separately obtained history, performing a medically appropriate examination, counseling and educating the patient/family/caregiver, ordering medications, tests, or procedures, and independently interpreting results (not separately reported). Gaudencio Chand MD Endocrinology Associate Staff [facility] Endocrinology and Metabolism [place] [phone] documented in this encounter [facility] 05-14-2023 Note HNO ID: [id number] Author: ENA BRUSH LPN Service: ? Author Type: LICENSED NURSE Type: Progress Notes Filed: 05/14/2023 14:30 Note Text: Scan on 05/14/2023 1:56 PM by Oscar Brown PA-C: Consultation - Cardiology Scan on 05/14/2023 1:45 PM by Oscar Brown PA-C: Consultation - Cardiology [facility] 05-14-2023 History of Present illness Narrative Scan on 05/14/2023 1:56 PM by Oscar Brown PA-C: Consultation - Cardiology Scan on 05/14/2023 1:45 PM by Oscar Brown PA-C: Consultation - Cardiology documented in this encounter [facility] 05-01-2023 Note HNO ID: [id number] Author: LAURO BARRIGA RN Service: ? Author Type: Registered Nurse Type: Progress Notes Filed: 05/01/2023 09:53 Note Text: RTOG [id number] A Phase II-R and A Phase III Trial Evaluating both *Erlotinib (PH II-R) and Chemoradiation (PH III) as Adjuvant Treatment for Patients with Resected Head of Pancreas Adenocarcinoma Registration Information: Informed Consent Signed 03/27/2014 Randomization Date Step 1: 04/24/2014 Treatment Arm: Step 1 Arm 1: Gemcitabine alone or combination chemotherapy x 5 months Randomization Date Step 2: 08/31/2014 Treatment Arm: Step 2 Arm 4: 1 month of gemcitabine or combination chemotherapy followed by XRT with either capecitabine or 5-FU Study ID [id number] Consent to optional samples Yes Time Point 9 Year Follow Up Yearly OV with CXR/CT's/CA 19-9/PS Treatment Plan: Treatment Dose Start Date Frequency End date Gemcitabine 2,170/mg 04/27/2014 Gemcitabine alone or combination chemotherapy x 5 months 08/29/2014 Gemcitabine 2,170/mg 09/12/2014 1 month of gemcitabine 09/26/2014 Radiation 5040 cGy 10/09/2014 5040 cGy in 28 fx 11/16/2014 Clinical Trial Specific Testing Test Dates Completed Due Next Date CT Scan Abdomen 04/24/2023 04/24/2024 Chest x-ray 04/24/2023 04/24/2024 CA-19 04/24/2023 04/24/2024 Clinical Trial Draw Progression QOLs Last 24 Months N/A Completed Baseline Weight (03/22/2014) 96.6 kg Creatinine Clearance 05/01/2023 112 mL/min ECOG 0 05/01/2023 Weight 90.6 kg (199 lb 12.8 oz) BSA 0 BMI 0 Temp 36.8 ?C (98.2 ?F) Pulse 85 BP 132/89 Patient seen today for 9 year follow up visit with Jessica Good APRN, CNP. Patient is stating overall he feels he is doing well, but had a second heart attack on and is doing outpatient cardiac rehab. Patient denies fatigue or pain. Patient is agreeable to annual follow-up continuation for disease evaluation. Current Outpatient Medications Medication Sig Dispense Refill iv contrast (will be provided with radiology test) CT Chest ABD/PEL-Inject, intravenously, once for 1 dose.No IV access, insert saline lock prior to the beginning of sedation, infusion, injection of imaging exam. Discontinue saline lock post exam. If Pt. has a central line or IVAD, may access for administration according to line specific nursing protocol. Once exam is complete flush line and de-access according to line specific nursing protocol in the CT contrast administration guidelines link. 1 Each 0 enteric contrast (will be provided with radiology test) For CT CHESTABD/PEL W IVCON Routine order Administer, As Directed One Time Only, via Oral, Rectal, both Oral and Rectal, Enteric Tube, Stoma or Indwelling Catheter, Enteric Contrast as designated per enteric contrast guidelines 1 Each 0 xdagmg-whegalvz-gxlkmxn (CREON) 24,000-76,000 -120,000 unit delayed release capsule Take 3 capsules by mouth three times a day with meals. 270 capsule 5 lisinopril (ZESTRIL) 10 mg tablet Take 1 tablet by mouth once daily. 90 tablet 1 metoprolol succinate ER (TOPROL XL) 25 mg 24 hr tablet Take 0.5 tablets by mouth once daily. 45 tablet 1 metFORMIN ER (GLUCOPHAGE XR) 500 mg 24 hr tablet Take 2 tablets by mouth two times a day before meals. 360 tablet 1 ticagrelor (BRILINTA) 90 mg tablet Take 1 tablet by mouth two times a day. 60 tablet 11 atorvastatin (LIPITOR) 80 mg tablet Take 1 tablet by mouth daily at bedtime. 90 tablet 0 dulaglutide (TRULICITY) 3 mg/0.5 mL pen injector Inject 3 mg subcutaneously one time a week. 4 Each 5 insulin degludec (TRESIBA FLEXTOUCH U-100) 100 unit/mL (3 mL) injection pen Inject 32 Units subcutaneously daily at bedtime. 15 mL 5 Blood-Glucose Sensor (DEXCOM G7 SENSOR) valentin Change sensor every 10 days. USE FOR CONTINUOUS GLUCOSE MONITORING. E10.65 10 Each 3 Blood-Glucose Meter,Continuous (DEXCOM G7 FIELD SERVICES MANAGER) [facility] [place] Dispense one seam feller kit. USE FOR CONTINUOUS GLUCOSE MONITORING. E10.65 1 Each 0 cyanocobalamin (VITAMIN B-12) 1,000 mcg tab Take 1 tablet by mouth once daily. With food 90 tablet 3 insulin aspart, niacinamide, (FIASP FLEXTOUCH U-100 INSULIN) 100 unit/mL (3 mL) pen Inject 5 units with meals 5 Each 3 Insulin [place], Disposable, (BD OTNE 2ND GEN PEN NEEDLE) 32 gauge x 5/32 Use to inject insulin 4 time daily. 400 Each 3 Lancets lancets Test 2 times daily, Insulin Dep? Yes E11.9 DM 2 200 Each 4 blood sugar diagnostic (BLOOD GLUCOSE TEST) test strip Test 2 times daily, Insulin Dep? Yes E11.9 DM 2 200 Strip 4 MEDICAL SUPPLY Sig: Abdominal hernia Velcro wrap. # one DX: K43.2 1 Device 0 COMPOUNDED PRESCRIPTION Abdominal hernia Velcro wrap. # one DX: K43.2 1 Device 0 BABY ASPIRIN ORAL Take 81 mg by mouth once daily. No current facility-administered medications for this visit. Toxicities per CTCAE v5 Hyperglycemia - Grade 1. Start Date: PRIOR TO STUDY. Attribution: Unrelated. Drugs to Treat: Insulin. Action required: Jessica Educated patient on b (more content not included)... [facility] 05-01-2023 Note HNO ID: [id number] Author: JESSICA GOOD APRN.FREELANCE DISPLAYER Service: ? Author Type: Nurse Practitioner Type: Progress Notes Filed: 05/01/2023 09:49 Note Text: Chief Complaint Patient presents with: Established Patient HPI: Jonathan Montanez is a 62 year old male who presents here today for follow up pancreas cancer. Per Dr. Skaggs's previous note: H/o HTN and CAD (ME 2010; treated with PCI with stent x2) who developed painless jaundice. CT revealed dilatation of both the biliary tree and pancreatic ductal system. ERCP showed a distal obstruction and a stent was placed. Subsequently referred to the [facility] for an EGD/EUS on 01/23/2014 which showed a 3.3 cm lesion with encroachment upon the portal vein. The FNA results revealed adenocarcinoma. Underwent diagnostic laparoscopy, laparoscopic liver biopsy (Segment IV) and classic pancreaticoduodenectomy 03/22/2014. Pathology: 1. Liver, biopsy (A) - Benign von Meyenberg complexes. - No evidence of malignancy. 2. Duodenal wall, biopsy (B) - Fibroadipose tissue with acute and chronic inflammation. - No evidence of malignancy. 3. Bile duct margin, excision (C) - Negative for dysplasia or malignancy. 4. Pancreatic neck margin, excision (D) - Positive for carcinoma. 5. Whipple with gallbladder, pancreaticoduodenectomy with cholecystectomy (E) - Invasive well-differentiated adenocarcinoma of the pancreas. - See synoptic report. - Gallbladder with chronic cholecystitis, cholesterolosis and acute fibrinous serositis. 6. Pancreatic neck, new margin, excision (F) - Positive for carcinoma with perineural invasion. 7. Extended pancreatic neck, excision (G) - Invasive adenocarcinoma. 8. SMA margin, excision (H) - SMA and portal veins margins free of tumor. 9. Newest pancreatic margin, excision (I) - Negative for tumor. 10. Pancreatic body, excision (J) - Negative for tumor. SYNOPTIC REPORT OF [facility] WHIPPLE WITH GALLBLADDER: Clinical History: Not specified Specimen: Head of pancreas Duodenum Gallbladder Procedure: Pancreaticoduodenectomy (Whipple resection), partial pancreatectomy Tumor Site: Pancreatic head Histologic Type: Ductal adenocarcinoma Histologic Grade: G1: Well differentiated Tumor Size: Greatest dimension: 3.4 cm Additional dimension: 2.7 cm Additional dimension: 2.3 cm Microscopic Tumor Extension: Tumor invades peripancreatic soft tissues Margins: Margins uninvolved by invasive carcinoma Distance of invasive carcinoma from closest margin: 1 mm Specify margin (if possible): SMA margin Treatment Effect: No prior treatment Lymph-Vascular Invasion: Present Perineural Invasion: Present TNM Descriptors: Not applicable Primary Tumor (pT): pT3: Tumor extends beyond the pancreas but without involvement of the celiac axis or the superior mesenteric artery Regional Lymph Nodes (pN): pN1: Regional lymph node metastasis Number of lymph nodes examined: 51 Number of lymph nodes involved: 7 Distant Metastasis (pM): Not applicable Pt. was noted to have an elevation in CA19-[address] Neg. No new symptoms. Repeat CA19-9 elevated. CA19-9 has since normalized. Blood sugars also under better control now. STEMI with RCA occlusion on . Discharged from [facility] on 04/07/23. Four REJI to the RCA. Appetite: Good. I'm eating better. Energy level: Good. I walk 5 miles a day now. Denies fevers or recent illness. Resp:denies cough or sob Cardiac:denies chest pain/palpitations GI:denies abd pain, n/v, moving bowels regularly :denies dysuria/hematuria Extrem:denies pain Neuro:denies symptoms of neuropathy Skin:denies rashes/lesions Heme:denies bleeding The ROS is otherwise negative. Past medical history, appointments, medications, allergies reviewed. No changes. EXAM: BP 132/89 Pulse 85 Temp 36.8 ?C (98.2 ?F) Wt 90.6 kg (199 lb 12.8 oz) BMI 31.29 kg/m? APPEARANCE Well appearing, alert, in no acute distress, well-hydrated, well nourished. HEART RRR with normal S1 and S2, no murmurs LUNG clear to auscultation LYMPH NODES No cervical lymphadenopathy, No supraclavicular lymphadenopathy, and No axillary lymphadenopathy. ABDOMEN bowel sounds normoactive, soft, non-tender EXTREMITIES No edema NEURO Awake, alert and oriented x 3, Normal gait, and No involuntary motions. SKIN Skin color, texture, turgor normal, no suspicious rashes or lesions LABS: Component Latest Ref Rng AND Units 08/26/2021 10/02/2021 04/16/2022 04/24/2023 CA19-9 <36.0 U/mL 53.0 (H) 32.0 31.0 27.0 RADIOLOGY: CXR 04/24/23: IMPRESSION: Cardiomegaly. No acute process seen CT abd/pelvis 04/24/23: IMPRESSION: Stable study with no recurrence or abdominopelvic metastasis. ASSESSMENT/PLAN: 1. Malignant neoplasm of head of pancreas (HCC) - ICD9: 157.0, ICD10: C25.0 (primary diagnosis) pT3 pN1 adenocarcinoma of the pancreas. Underwent diagnos (more content not included)... [facility] 04-24-2023 Note HNO ID: [id number] Author: ALEXANDRO ALICEA RT(R) Service: Radiology Author Type: Technologist Type: Progress Notes Filed: 04/24/2023 09:25 Note Text: Radiology Service Progress Note PATIENT NAME: Jonathan Montanez DATE OF SERVICE: April 24, 2023 TIME: 9:19 AM PATIENT IDENTITY VERIFICATION COMPLETED USING TWO (2) IDENTIFIERS: Name and Date of confirmed by patient verbally. FALL SCREENING: Has the patient had 2 falls in the last year or 1 fall with injury or currently using an Ambulatory Assistive Device (Walker, Cane, Wheelchair, Crutches, etc.)? No PATIENT GENDER DATA: Male PATIENT RELEVANT IMPLANT DATA REVIEWED: Yes RADIOLOGY DEPARTMENT: General X-ray: Exam(s) Completed: Chest X-Ray PERIPHERAL IV DATA: Not applicable SIGNED BY: RT Connor(R) April 24, 2023 9:19 AM [facility] 04-24-2023 Note HNO ID: [id number] Author: SULTANA CARCAMO RT(R) Service: ? Author Type: Street Light Wirer Type: Progress Notes Filed: 04/24/2023 13:39 Note Text: Radiology Service Progress Note DATE OF SERVICE: April 24, 2023 TIME: 1:39 PM PATIENT IDENTITY VERIFICATION COMPLETED USING TWO (2) STANDARD IDENTIFIERS: Name and Date of confirmed by patient verbally. FALL SCREENING: Has the patient had 2 falls in the last year or 1 fall with injury or currently using an Ambulatory Assistive Device (Walker, Cane, Wheelchair, Crutches, etc.)? No PATIENT GENDER DATA: Male PATIENT RELEVANT IMPLANT DATA REVIEWED: Yes ALLERGIES: Reviewed and unchanged CONTRAST ALLERGY: NO. EXAM: CT -CONTRAST INDUCED NEPHROPATHY RISK FACTORS: Patient age > 60 years CREATININE: Creatinine Date Value Ref Range Status 04/24/2023 0.90 0.73 - 1.22 mg/dL Final 04/07/2023 0.74 0.73 - 1.22 mg/dL Final 04/06/2023 0.83 0.73 - 1.22 mg/dL Final Estimated Glomerular Filtration Rate Date Value Ref Range Status 04/24/2023 98 >=60 mL/min/1.73m? Final Comment: Estimated Glomerular Filtration Rate (eGFR) is calculated using the 2020 CKD-EPI creatinine equation. This equation utilizes serum creatinine, sex, and age as parameters. The creatinine assay has traceable calibration to isotope dilution-mass spectrometry. Refer to KDIGO guidelines for clinical interpretation. In patients with unstable renal function, e.g. those with acute kidney injury, the eGFR may not accurately reflect actual GFR. eGFR- Date Value Ref Range Status 05/10/2021 >60 Final P.O.C.T. RESULTS: POC done: Yes, See Lab Tab April 24, 2023 TREATMENT: N/A PERIPHERAL IV DATA: Ambulatory: A peripheral IV was started in the Left antecubital site with a Angio cath: 22 gauge. RADIOLOGY DEPARTMENT: CT; Exam(s) Completed: Abdomen/Pelvis SIGNATURE: RT Silvestre(R) PATIENT NAME: Jonathan Montanez DATE: April 24, 2023 TIME: 1:39 PM [facility] 04-23-2023 Note HNO ID: [id number] Author: MO JOHNSTON MD Service: ? Author Type: Physician Type: Progress Notes Filed: 04/23/2023 14:28 Note Text: Transitional Care Management TCM Eligibility Documentation Program: Transitional Care Management Status: Enrolled Effective Dates: 04/08/2023 - present Responsible Staff: Sara David RN Discharge date: 04/08/2023 (Program start) Date of initial contact: 04/08/2023 Initial contact Target status: Successful; Contact made within 2 business days post-discharge Provider Documentation Jonathan Montanez is a 62 year old male here today for a follow up from recent hospitalization. I have reviewed the patient's hospital course including discharge summary, discharge medications , and follow up needs with the patient and any family members present at today's visit. Discharge summary: Mr. Montanez initially presented to the [place] ED on 04/06/2023 for evaluation of chest pain. Per history obtained at the time of admission, the patient had started experiencing his typical, cardiac chest pain the day prior to admission (04/05/2023). He described the pain as a 4 out of 10 throbbing sensation that originates in the back and migrates toward the front, landing in the center of the chest. There are no associated symptoms such as dyspnea, diaphoresis, fevers, chills, nausea, vomiting, dizziness or syncope, but the patient does report that pain is worsened with movement and improved with rest. Given concern that he was having a heart attack, the patient presented to the ED. Upon initial evaluation in the ED, the patient was found to be hemodynamically stable with initial ECG demonstrating ST-Segment elevations in II, III and aVF concerning for inferior STEMI. The patient was emergently transferred to the [facility] where he underwent LHC demonstrating 100% distal RCA occlusion requiring placement of four new stents. See Cath Report for further details. Post-procedural course was uncomplicated and the patient was observed in the CVICU. ECHO was performed and demonstrated an EF of 45% with wall motion abnormalities in the region of the LAD and RCA consistent with prior MIs. Unfortunately, there was no prior ECHO in our system to compare to, to determine what was acute versus chronic. Ideally, we would have started the patient on optimal medical therapy given his reduced EF and recent ME, however blood pressure remained increasingly soft 80/60 to 90/60 and therefore he is discharged on just Lisinopril 10mg every day. I did discuss this with the patient and recommended he follow-up with PCP/Cardiology for further medication titration. Additionally, the patient's Hemoglobin A1c returned at 14.3% demonstrating worsening control. He is on Metformin, Dulaglutide and Insulin at home, but currently avoids taking meal time insulin as he finds it a hassle. I discussed that it is critical to bring his A1c down and provided him with an Endocrinology referral near [place]. HPI Patient was to see cardio in 3-4 weeks but an appt was never set up. He was to be referred to Endo and that order was not placed. Since discharge he has not had any further chest pain. No shortness of breath. Initially was getting some leg swelling but that has stopped. Past medical history, appointments, medications, allergies reviewed. Previous Medical History PAST MEDICAL HISTORY Diagnosis Date Cervical pain (neck) 06/06/2015 Corns and callus 06/28/2019 Coronary artery disease due to lipid rich plaque 06/06/2015 Diabetic eye exam (HCC) 01/13/2019 Last done: 01/13/2019 Elevated LFTs 05/11/2022 Essential hypertension Exocrine pancreatic insufficiency 03/23/2014 GERD without esophagitis 07/05/2018 Growth of eyelid 12/15/2017 Incisional hernia, without obstruction or gangrene 06/29/2017 Medicare annual wellness visit, subsequent 06/29/2017 Medicare Part B: 08/11/2016 last done: 05/08/2022 Mixed hyperlipidemia Pancreatic cancer (HCC) Primary insomnia 07/04/2020 Stented coronary artery Mid LAD REJI,proximal-mid RCA stent Type 2 diabetes mellitus without retinopathy (HCC) 12/15/2017 Uncontrolled type 2 diabetes mellitus without complication, without long-term current use of insulin 09/02/2016 Upper back pain on left side 06/06/2015 Ventral hernia without obstruction or gangrene 06/28/2019 Vitreous floaters of both eyes 12/15/2017 Previous Surgical History PAST SURGICAL HISTORY Procedure Laterality Date CORONARY STENT EA VESSEL 04/05/2023 4 stents to RCA ENDOSCOPIC ULTRASOUND W/FNA_*FL 01/23/2014 ERCP DX COLLECTION SPECIMEN BRUSHING/WASHING 01/17/2014 Cholangiopancreatography (ERCP) [facility] [place] inpt ESOPHAGOGASTRODUODENOSCOPY TRANSORAL DIAGNOSTIC 09/12/2015 EGD (mac) PAST SURGICAL HISTORY OF 2 coranary stents PAST SURGICAL HISTORY OF 02/20/2014 Whipple procedure Family History FAMILY HISTORY Problem Relation Age of Onset Hypertension M (more content not included)... [facility] 04-08-2023 Note HNO ID: [id number] Author: Sara David RN Service: ? Author Type: Registered Nurse Type: Progress Notes Filed: 04/08/2023 1:37 PM Note Text: TRANSITIONAL CARE MANAGEMENT (TCM) COMMUNITY MONITORING PROGRAM Provider Action/FYI: PCP appt 04/23/22 Spoke with patient, denies chest pain, had one episode of sob when getting dressed this morning but quickly resolved, no BLE edema, no N/V/D, tolerating diet, drinking fluids, has not checked his blood glucose, has not weighed himself, feels good. SUMMARY: Discharge Network Status: In-Network Discharge Pt discharged from [facility] on 04/07/23. Admitted for: chest pain/STEMI with RCA Occlusion Contact made with patient: Yes Hi my name is Sara David RN and I am calling from the [facility] on behalf of your PCP, Mo Johnston MD I understand you were recently in the hospital so I am calling to check in with you to ensure you are feeling well now that you're home. May I ask you a few questions related to your hospital stay and well-being? Yes Contact with patient post discharge, spoke to patient. Patient identified by name and . Do you feel your health is BETTER, WORSE, or the SAME since leaving the hospital? Better ACTION TAKEN: Patient indicated symptoms are better or same, no action required. Continue outreach. MEDICATIONS: Many patients have questions or concerns about their medications once they are home. Do you have any questions about taking your medications or which medication you should be on? No Do you need any medication refills at this time, including any of the medications you might take only when needed? No ACTION TAKEN: No action required For RNs or Pharmacy completing outreach ONLY, was a medication review completed? Yes SOCIAL: We would like to make sure you have what you need so that your basics needs are met - including your personal safety, food, housing and medications. Would you like to speak with a social work team automobile assembler to help give you support for any of these needs? No It can be normal to feel anxious or down during a time like this. Would you like to talk to a mental health professional about how you have been feeling? No ACTION TAKEN: No action taken DISCHARGE INTRUCTIONS: Your discharge instructions / After Visit Summary (AVS) are important in guiding you through the recovery process. Do you have any questions related to your discharge instructions? No Do you have all the necessary equipment and supplies at home? Yes ACTION TAKEN: No action required I would like to help you schedule a hospital follow-up virtual or telephone visit with your PCP. This is a great way for you to connect with your provider to ensure you have safely transitioned home. If you are agreeable, I will send your request to a nursing scheduler who will contact and assist you with that appointment. This will give you an opportunity to ask any questions or address any concerns you may have with your PCP. Inform the patient that if they have any questions or concerns prior to that appointment, to call their PCP's office right away. ACTION TAKEN: No action required, patient already has an appointment scheduled. Your doctor would like us to remind you of the recommendations regarding the coronavirus (Covid19) outbreak: Avoid public places as much as possible. Avoid close contact (within 6 feet) with others you don?t live with, especially if they are sick. Stay home if you are sick. Wash your hands regularly for at least 20 seconds with soap and water. Wear a cloth mask in public places to help reduce community spread. Do not go to your Doctor?s office unless instructed to do so. For any non-emergency symptoms, call your Doctor?s office to get instructions on how to manage (we might recommend a telephone or virtual visit). For emergency symptoms, proceed to Emergency Department as usual but inform them of cough and fever symptoms ALLEN if present (or call on the way if possible). NAEL Education Ordered -: No [facility] 04-08-2023 Note Patient Outreach ([facility]) -------- TARIKJONATHAN POMPA ([id number]) 1960 M Date Time Provider Department 04/08/23 SARA DAVID During your visit today, we recorded the following information about you: Sara David RN 04/08/2023 1:37 PM Signed TRANSITIONAL CARE MANAGEMENT (TCM) COMMUNITY MONITORING PROGRAM Provider Action/FYI: PCP appt 04/23/22 Spoke with patient, denies chest pain, had one episode of sob when getting dressed this morning but quickly resolved, no BLE edema, no N/V/D, tolerating diet, drinking fluids, has not checked his blood glucose, has not weighed himself, feels good. SUMMARY: Discharge Network Status: In-Network Discharge Pt discharged from [facility] on 04/07/23. Admitted for: chest pain/STEMI with RCA Occlusion Contact made with patient: Yes Hi my name is Sara David RN and I am calling from the [facility] on behalf of your PCP, Mo Johnston MD I understand you were recently in the hospital so I am calling to check in with you to ensure you are feeling well now that you're home. May I ask you a few questions related to your hospital stay and well-being? Yes Contact with patient post discharge, spoke to patient. Patient identified by name and . Do you feel your health is BETTER, WORSE, or the SAME since leaving the hospital? Better ACTION TAKEN: Patient indicated symptoms are better or same, no action required. Continue outreach. MEDICATIONS: Many patients have questions or concerns about their medications once they are home. Do you have any questions about taking your medications or which medication you should be on? No Do you need any medication refills at this time, including any of the medications you might take only when needed? No ACTION TAKEN: No action required For RNs or Pharmacy completing outreach ONLY, was a medication review completed? Yes SOCIAL: We would like to make sure you have what you need so that your basics needs are met - including your personal safety, food, housing and medications. Would you like to speak with a social work team automobile assembler to help give you support for any of these needs? No It can be normal to feel anxious or down during a time like this. Would you like to talk to a mental health professional about how you have been feeling? No ACTION TAKEN: No action taken DISCHARGE INTRUCTIONS: Your discharge instructions / After Visit Summary (AVS) are important in guiding you through the recovery process. Do you have any questions related to your discharge instructions? No Do you have all the necessary equipment and supplies at home? Yes ACTION TAKEN: No action required I would like to help you schedule a hospital follow-up virtual or telephone visit with your PCP. This is a great way for you to connect with your provider to ensure you have safely transitioned home. If you are agreeable, I will send your request to a nursing scheduler who will contact and assist you with that appointment. This will give you an opportunity to ask any questions or address any concerns you may have with your PCP. Inform the patient that if they have any questions or concerns prior to that appointment, to call their PCP's office right away. ACTION TAKEN: No action required, patient already has an appointment scheduled. Your doctor would like us to remind you of the recommendations regarding the coronavirus (Covid19) outbreak: Avoid public places as much as possible. Avoid close contact (within 6 feet) with others you don?t live with, especially if they are sick. Stay home if you are sick. Wash your hands regularly for at least 20 seconds with soap and water. Wear a cloth mask in public places to help reduce community spread. Do not go to your Doctor?s office unless instructed to do so. For any non-emergency symptoms, call your Doctor?s office to get instructions on how to manage (we might recommend a telephone or virtual visit). For emergency symptoms, proceed to Emergency Department as usual but inform them of cough and fever symptoms ALLEN if present (or call on the way if possible). NAEL Education Ordered -: No Allergies As of Date: 04/08/2023 (No Known Allergies) Date Reviewed: 04/07/2023 Reviewed by: Katelyn Longoria RN - Fully Assessed Reason for Visit: Transition Of Care [1968] Cmt: TCM initial outreach -dc'd from [facility] 04/07/23 Prescriptions as of 04/08/2023 - ticagrelor (BRILINTA) 90 mg tablet Take 1 tablet by mouth two times a day. - atorvastatin (LIPITOR) 80 mg tablet Take 1 tablet by mouth daily at bedtime. - lisinopril (ZESTRIL) 10 mg tablet Take 1 tablet by mouth once daily. - dulaglutide (TRULICITY) 3 mg/0.5 mL pen injector Inject 3 mg subcutaneously one time a week. - insulin degludec (TRESIBA FLEXTOUCH U-100) 100 unit/mL (3 mL) injection pen Inject 32 Units mejía (more content not included)... [facility] 04-07-2023 Note HNO ID: [id number] Author: Karla Menjivar CPhT Service: Pharmacy Author Type: Senior Manager Asset Protection Type: Plan of Care Filed: 04/07/2023 1:33 PM Note Text: PHARMACY BEDSIDE DELIVERY SERVICE Patient Name: Jonathan Montanez The marked outpatient medications were Filled at: [facility] and delivered to the patient's bedside to patient Medication List START taking these medications BRILINTA 90 mg tablet Generic drug: ticagrelor Take 1 tablet by mouth two times a day. lisinopril 10 mg tablet Commonly known as: ZESTRIL Take 1 tablet by mouth once daily. Start taking on: April 08, 2023 CHANGE how you take these medications atorvastatin 80 mg tablet Commonly known as: LIPITOR Take 1 tablet by mouth daily at bedtime. What changed: when to take this CONTINUE taking these medications BABY ASPIRIN ORAL BLOOD GLUCOSE TEST test strip Generic drug: blood sugar diagnostic Test 2 times daily, Insulin Dep? Yes E11.9 DM 2 COMPOUNDED PRESCRIPTION Abdominal hernia Velcro wrap. # one DX: K43.2 CREON 24,000-76,000 -120,000 unit delayed release capsule Generic drug: vksnaz-kvdcsiqd-ojnpwau Take 3 capsules by mouth three times daily with meals. cyanocobalamin 1,000 mcg Tab Commonly known as: VITAMIN B-12 Take 1 tablet by mouth once daily. With food DEXCOM G7 FIELD SERVICES MANAGER Misc Generic drug: Blood-Glucose Meter,Continuous Dispense one seam feller kit. USE FOR CONTINUOUS GLUCOSE MONITORING. E10.65 DEXCOM G7 SENSOR Valentin Generic drug: Blood-Glucose Sensor Change sensor every 10 days. USE FOR CONTINUOUS GLUCOSE MONITORING. E10.65 dulaglutide 3 mg/0.5 mL pen injector Commonly known as: TRULICITY Inject 3 mg subcutaneously one time a week. FIASP FLEXTOUCH U-100 INSULIN 100 unit/mL (3 mL) pen Generic drug: insulin aspart (niacinamide) Inject 5 units with meals insulin degludec 100 unit/mL (3 mL) injection pen Commonly known as: TRESIBA FLEXTOUCH U-100 Inject 32 Units subcutaneously daily at bedtime. Insulin [place] (Disposable) 32 gauge x 5/32 Commonly known as: BD TONE 2ND GEN PEN NEEDLE Use to inject insulin 4 time daily. Lancets lancets Test 2 times daily, Insulin Dep? Yes E11.9 DM 2 MEDICAL SUPPLY Sig: Abdominal hernia Velcro wrap. # one DX: K43.2 metFORMIN ER 500 mg 24 hr tablet Commonly known as: GLUCOPHAGE XR Take 2 tablets by mouth twice daily before meals. You might also be taking other medications not listed above. If you have questions about any of your other medications, talk to the person who prescribed them or your Primary Care Provider. STOP taking these medications lisinopril-hydroCHLOROthiazide 20-12.5 mg per tablet Commonly known as: ZESTORETIC metoprolol tartrate (short acting) 25 mg tablet Commonly known as: LOPRESSOR semaglutide 2 mg/dose (8 mg/3 mL) pen injector Commonly known as: FROY Menjivar [facility] PAGER: Karla Menjivar [id number] 04/07/23 1:33 PM April 07, 2023 1:32 PM [facility] 04-07-2023 Note HNO ID: [id number] Author: Nellie Olivarez MD Service: Cardiovascular Medicine Author Type: Physician Type: Progress Notes Filed: 04/08/2023 2:40 PM Note Text: Cardiovascular ICU Progress Note SERVICE DATE: April 07, 2023 SERVICE TIME: 12:42 PM Admission Date: 04/06/2023 HPI: Mr. Jonathan Montanez is a 62-year-old male with PMH of: - CAD s/p REJI to the LAD and RCA (2010), Hypertension, Hyperlipidemia - Prior Pancreatic Carcinoma s/p Pancreaticoduodenectomy (2013) - Diabetes Mellitus following Pancreatectomy - MASLD, GERD - Obesity [BMI 35.62] Mr. Montanez initially presented to the [place] ED on 04/06/2023 for evaluation of chest pain. Per history obtained at the time of admission, the patient had started experiencing his typical, cardiac chest pain the day prior to admission (04/05/2023). He described the pain as a 4 out of 10 throbbing sensation that originates in the back and migrates toward the front, landing in the center of the chest. There are no associated symptoms such as dyspnea, diaphoresis, fevers, chills, nausea, vomiting, dizziness or syncope, but the patient does report that pain is worsened with movement and improved with rest. Given concern that he was having a heart attack, the patient presented to the ED. Upon initial evaluation in the ED, the patient was found to be hemodynamically stable with initial ECG demonstrating ST-Segment elevations in II, III and aVF concerning for inferior STEMI. The patient was emergently transferred to the [facility] where he underwent LHC demonstrating 100% distal RCA occlusion requiring placement of four new stents. Subjective Interval Events April 07, 2023: No acute events overnight. When seen this AM, Mr. Montanez states that he is doing well and has no acute complaints, including chest pain. Patient has been ambulatory around the CVICU and was found sitting in his bedside chair earlier this morning. Data Reviewed: Vitals: HR in the 70s. BPs in the 90s/70s. Saturating 99% on 2L NC. Intake/Output: Urine in 24 hours: 1.1L Net 24 hours: -850L Net Admission: -850L Micro: Negative MRSA Labs: BMP Reviewed: Na: 132, K: 4.3, Bicarb: 26, Anion Gap: 9, Supervisor Roller Shop: 0.74 CBC Reviewed: WBC: 12.44 Lipid Panel: TG at 168 A1c: 14.1 Imaging: CXR without abnormality Meds: Aspirin, Ticagrelor Atorvastatin Lisinopril 20mg CREON Insulin 32U Review of Systems Constitutional: Negative for chills, diaphoresis, fever and malaise/fatigue. HENT: Negative for congestion, hearing loss and sore throat. Eyes: Negative for blurred vision, double vision and photophobia. Respiratory: Negative for cough, hemoptysis, sputum production and shortness of breath. Cardiovascular: Negative for chest pain, palpitations, orthopnea and leg swelling. Gastrointestinal: Negative for abdominal pain, constipation, diarrhea, nausea and vomiting. Genitourinary: Negative for dysuria, frequency and urgency. Musculoskeletal: Negative for back pain and myalgias. Neurological: Negative for dizziness, sensory change, loss of consciousness and headaches. Objective PAST MEDICAL HISTORY Diagnosis Date Cervical pain (neck) 06/06/2015 Corns and callus 06/28/2019 Coronary artery disease due to lipid rich plaque 06/06/2015 Diabetic eye exam (HCC) 01/13/2019 Last done: 01/13/2019 Elevated LFTs 05/11/2022 Essential hypertension Exocrine pancreatic insufficiency 03/23/2014 GERD without esophagitis 07/05/2018 Growth of eyelid 12/15/2017 Incisional hernia, without obstruction or gangrene 06/29/2017 Medicare annual wellness visit, subsequent 06/29/2017 Medicare Part B: 08/11/2016 last done: 05/08/2022 Mixed hyperlipidemia Pancreatic cancer (HCC) Primary insomnia 07/04/2020 Stented coronary artery Mid LAD REJI,proximal-mid RCA stent Type 2 diabetes mellitus without retinopathy (HCC) 12/15/2017 Uncontrolled type 2 diabetes mellitus without complication, without long-term current use of insulin 09/02/2016 Upper back pain on left side 06/06/2015 Ventral hernia without obstruction or gangrene 06/28/2019 Vitreous floaters of both eyes 12/15/2017 PAST SURGICAL HISTORY Procedure Laterality Date ENDOSCOPIC ULTRASOUND W/FNA_*FL 01/23/2014 ERCP DX COLLECTION SPECIMEN BRUSHING/WASHING 01/17/14 Cholangiopancreatography (ERCP) [facility] [place] inpt ESOPHAGOGASTRODUODENOSCOPY TRANSORAL DIAGNOSTIC 09/12/15 EGD ([facility] [place]) PAST SURGICAL HISTORY OF 2 coranary stents PAST SURGICAL HISTORY OF 02/20/2014 Whipple procedure medication ALLERGIES No Known Allergies Social History Tobacco Use Smoking status: Never Smokeless tobacco: Never Vaping Use Vaping Use: Never used Substance Use Topics Alcohol use: Yes Comment: 2-3 beers daily, occasional shot of crown Drug use: No Sexual Activity: Not on file (not asked) Family History Problem Relation Age of Onset Hypertension Mother Breast Cancer Sister Diabetes Broth (more content not included)... [facility] 04-06-2023 Note HNO ID: [id number] Author: Ibeth Romero, RN Service: Nursing Author Type: Registered Nurse Type: Nursing Progress Note Filed: 04/06/2023 12:31 PM Note Text: Doctor exceeded 2 tavarez radiation. Patient educated [facility] 03-17-2023 Miscellaneous Notes Noted. Patient returned call and went over notes below from Dr Johnston with understanding. Patient said his Trulicity came in yesterday and he picked that up at the pharmacy. Left message for pt to contact office. Ena Brush LPN Let patient know we can change him to Victoza but its once a day and will not help with weight loss like the Trulicy or Ozempic. Unless he his willing to check with other pharmacies to see if they have the Trulicity or Ozempic available. Pt calls upset because he reports that Ozempic and Trulicity are always backordered at his pharmacy and he has not had medication for awhile. Advised pt he could call different pharmacies to see who had medication in stock and pt stated, That's not my job that is your job . Explained to the patient that we have thousands of pt's with different pharmacies and it is difficult to have time to call whenever a medication is backordered. Pt stated, The hell with you all! Advised pt I could ask provider if treatment could be changed. Pt hung up the phone. Karla Lacy LPN documented in this encounter [facility] 03-12-2023 Note Patient Outreach (OCTAVIO ALLRED) -------- JONATHAN MONTANEZ ([id number]) 1960 M Date Time Provider Department 03/12/23 MICHEL REYES (PSS) During your visit today, we recorded the following information about you: Michel Billy 03/12/2023 4:45 PM Signed POPULATION HEALTH NAVIGATION OUTREACH Action/FYI 03/12/23 [employer] care gaps to discuss: ~Colorectal cancer screening ~Pharmacy consult ~HgBA1C Outcome: ~Left message on voice mail and sent [employer] message. Patient Identified by Name and : NO Outreach Outcome/Action Unable to reach patient: Left message MyChart message sent Did you use a PCP flex slot to schedule this appointment? N/A Reason for Outreach Care Gap or Scheduling/Wellness visits Payer: Payor: [employer] MEDICARE / Plan: [employer] MEDICARE HMO / Product Type: HMO / Care Gap Reviewed:: Colorectal Cancer Screening HBA1C Reminder: Reminder note to check Health Maintenance for items below Health Maintenance items due: Colorectal Cancer Screening Never done Hepatitis B Vaccine(1 of 3 - Risk 3-dose series) Never done RSV Vaccine(1 - 1-dose 60+ series) Never done HbA1C due on 01/13/2023 Navigation Signature: Michel Reyes Population Health Navigator March 12, 2023 8:39 AM Allergies As of Date: 03/12/2023 (No Known Allergies) Date Reviewed: 10/29/2022 Reviewed by: Mo Johnston MD - Fully Assessed Reason for Visit: Population Health Navigation Outreach [3910] Cmt: [employer] care gaps Prescriptions as of 03/12/2023 - lisinopril-hydroCHLOROthiazide (ZESTORETIC) 20-12.5 mg per tablet Take 1 tablet by mouth once daily. - dulaglutide (TRULICITY) 3 mg/0.5 mL pen injector Inject 3 mg subcutaneously one time a week. - insulin degludec (TRESIBA FLEXTOUCH U-100) 100 unit/mL (3 mL) injection pen Inject 32 Units subcutaneously daily at bedtime. - hpajqg-hstuhjlm-bgavpho (CREON) 24,000-76,000 -120,000 unit delayed release capsule Take 3 capsules by mouth three times daily with meals. - semaglutide (OZEMPIC) 2 mg/dose (8 mg/3 mL) pen injector Inject 2 mg subcutaneously one time a week. - atorvastatin (LIPITOR) 80 mg tablet Take 1 tablet by mouth once daily. - metFORMIN ER (GLUCOPHAGE XR) 500 mg 24 hr tablet Take 2 tablets by mouth twice daily before meals. - Blood-Glucose Sensor (DEXCOM G7 SENSOR) valentin Change sensor every 10 days. USE FOR CONTINUOUS GLUCOSE MONITORING. E10.65 - Blood-Glucose Meter,Continuous (DEXCOM G7 FIELD SERVICES MANAGER) [facility] [place] Dispense one seam feller kit. USE FOR CONTINUOUS GLUCOSE MONITORING. E10.65 - cyanocobalamin (VITAMIN B-12) 1,000 mcg tab Take 1 tablet by mouth once daily. With food - insulin aspart, niacinamide, (FIASP FLEXTOUCH U-100 INSULIN) 100 unit/mL (3 mL) pen Inject 5 units with meals - Insulin [place], Disposable, (BD TONE 2ND GEN PEN NEEDLE) 32 gauge x 5/32 Use to inject insulin 4 time daily. - metoprolol tartrate, short acting, (LOPRESSOR) 25 mg tablet Take 1 tablet by mouth twice daily. - Lancets lancets Test 2 times daily, Insulin Dep? Yes E11.9 DM 2 - blood sugar diagnostic (BLOOD GLUCOSE TEST) test strip Test 2 times daily, Insulin Dep? Yes E11.9 DM 2 - MEDICAL SUPPLY Sig: Abdominal hernia Velcro wrap. # one DX: K43.2 - COMPOUNDED PRESCRIPTION Abdominal hernia Velcro wrap. # one DX: K43.2 - BABY ASPIRIN ORAL Take 81 mg by mouth once daily. Problem List As Of Date 03/12/2023 Noted Resolved Essential hypertension [I10] Mixed hyperlipidemia [E78.2] Pancreatic cancer (HCC) [C25.9] 01/31/2014 Exocrine pancreatic insufficiency (HCC) [K86.81]03/23/2014 Coronary artery disease due to lipid rich plaqu*06/06/2015 Upper back pain on left side [M54.9] 06/06/2015 Cervical pain (neck) [M54.2] 06/06/2015 Colon cancer screening [Z12.11] 03/04/2016 Uncontrolled type 2 diabetes mellitus with hype*09/02/2016 Disorder of prostate [N42.9] 09/09/2016 Medicare annual wellness visit, subsequent [Z00*06/29/2017 Growth of eyelid [D49.2] 12/15/2017 Vitreous floaters of both eyes [H43.393] 12/15/2017 Type 2 diabetes mellitus without retinopathy (H*12/15/2017 GERD without esophagitis [K21.9] 07/05/2018 Stented coronary artery [Z95.5] Diabetic eye exam (HCC) [Z01.00, E11.9] 01/13/2019 Ventral hernia without obstruction or gangrene *06/28/2019 Corns and callus [L84] 06/28/2019 Uncontrolled daytime somnolence [R40.0] 06/28/2019 Witnessed apneic spells [R06.81] 06/28/2019 Medication management [Z79.899] 01/04/2020 Primary insomnia [F51.01] 07/04/2020 Hyperkalemia [E87.5] 01/16/2021 Hyponatremia [E87.1] 01/16/2021 Elevated LFTs [R79.89] 05/11/2022 HERNANDEZ (nonalcoholic steatohepatitis) [K75.81] 05/28/2022 Plantar fasciitis [M72.2] 10/29/2022 Encounter Status:Closed by MICHEL BILLY on 03/12/23 [facility] 03-12-2023 Note HNO ID: [id number] Author: Michel Billy Service: ? Author Type: ? Type: Progress Notes Filed: 03/12/2023 4:45 PM Note Text: POPULATION HEALTH NAVIGATION OUTREACH Action/I 03/12/23 [facility] care gaps to discuss: ~Colorectal cancer screening ~Pharmacy consult ~HgBA1C Outcome: ~Left message on voice mail and sent [employer]hart message. Patient Identified by Name and : NO Outreach Outcome/Action Unable to reach patient: Left message MyChart message sent Did you use a PCP flex slot to schedule this appointment? N/A Reason for Outreach Care Gap or Scheduling/Wellness visits Payer: Payor: AET MEDICARE / Plan: AET MEDICARE HMO / Product Type: HMO / Care Gap Reviewed:: Colorectal Cancer Screening HBA1C Reminder: Reminder note to check Health Maintenance for items below Health Maintenance items due: Colorectal Cancer Screening Never done Hepatitis B Vaccine(1 of 3 - Risk 3-dose series) Never done RSV Vaccine(1 - 1-dose 60+ series) Never done HbA1C due on 01/13/2023 Navigation Signature: Michel Reyes Population Health Navigator March 12, 2023 8:39 AM [facility] 03-12-2023 History of Present illness Narrative POPULATION HEALTH NAVIGATION OUTREACH Action/FYI 03/12/23 [facility] to discuss: ~Colorectal cancer screening ~Pharmacy consult ~HgBA1C Outcome: ~Left message on voice mail and sent [employer] message. Patient Identified by Name and : NO Outreach Outcome/Action Unable to reach patient: Left message MyChart message sent Did you use a PCP flex slot to schedule this appointment? N/A Reason for Outreach Care Gap or Scheduling/Wellness visits Payer: Payor: [employer] MEDICARE / Plan: [employer] MEDICARE HMO / Product Type: HMO / Care Gap Reviewed:: Colorectal Cancer Screening HBA1C Reminder: Reminder note to check Health Maintenance for items below Health Maintenance items due: Colorectal Cancer Screening Never done Hepatitis B Vaccine(1 of 3 - Risk 3-dose series) Never done RSV Vaccine(1 - 1-dose 60+ series) Never done HbA1C due on 01/13/2023 Navigation Signature: Michel Reyes Population Health Navigator March 12, 2023 8:39 AM documented in this encounter [facility] 02-16-2023 Miscellaneous Notes The following approved medication requests have been transmitted electronically. Requested Prescriptions Signed Prescriptions Disp Refills lisinopril-hydroCHLOROthiazide (ZESTORETIC) 20-12.5 mg per tablet 90 tablet 1 Sig: Take 1 tablet by mouth once daily. Authorizing Provider: MO JOHNSTON MD Patient has been identified by name and date of : Yes Requested Prescriptions Pending Prescriptions Disp Refills lisinopril-hydroCHLOROthiazide (ZESTORETIC) 20-12.5 mg per tablet 90 tablet 1 Sig: Take 1 tablet by mouth once daily. RX INSTRUCTIONS: Patient aware RX will be sent to pharmacy. No need to notify patient. Socorro Bustillo MA Marco 09/2022 Nov 04/2023 Last refill: 08/2022 Patient has been identified by name and date of : Yes Requested Prescriptions Pending Prescriptions Disp Refills lisinopril-hydroCHLOROthiazide (ZESTORETIC) 20-12.5 mg per tablet 90 tablet 1 Sig: Take 1 tablet by mouth once daily. RX INSTRUCTIONS: Patient aware RX will be sent to pharmacy. No need to notify patient. Shu Sandra documented in this encounter [facility] 02-03-2023 Miscellaneous Notes Patient returns call and provider message reviewed. Patient verbalizes understanding and will check with local pharmacies near him. Lesley Alexander RN Left a message for pt to call the office and ask to speak to a nurse. Petra Nova LPN Please advise patient to contact some of the other local pharmacies near him to see if they have Ozempic in the dose he takes. If so he can let us know and we can send the script there. The following approved medication requests have been transmitted electronically. Requested Prescriptions Signed Prescriptions Disp Refills insulin degludec (TRESIBA FLEXTOUCH U-100) 100 unit/mL (3 mL) injection pen 15 mL 5 Sig: Inject 32 Units subcutaneously daily at bedtime. Authorizing Provider: MO JOHNSTON MD Pt called and he is out of his Ozempic and not able to get from the pharmacy because if is on backorder. Pt has been without this for 3 weeks and is requesting something to replace till they can get this in. Pt also requesting refill on Tresiba. Please advise pt. Petra Nova LPN Patient has been identified by name and date of : Yes, Provider Dr. Johnston Date 02/02/23 Time 9:36 am Patient phones for refill(s): Requested Prescriptions Pending Prescriptions Disp Refills insulin degludec (TRESIBA FLEXTOUCH U-100) 100 unit/mL (3 mL) injection pen 15 mL 5 Sig: Inject 32 Units subcutaneously daily at bedtime. Date of last office visit in primary care: 10/29/2022 Date of next office visit in primary care: Visit date not found Last 2 Encounter Wt Readings: Date: Wt: 10/29/2022 89.8 kg (198 lb) 09/15/2022 89.4 kg (197 lb) Previous labs/tests for medication: Diabetes: Hemoglobin A1C (%) Date Value 10/13/2022 13.9 05/08/2022 10.2 05/10/2021 13.7 01/15/2021 11.3 Please advise. Thank you. Petra Nova LPN. documented in this encounter [facility] 12-30-2022 Note HNO ID: [id number] Author: Sulma Ponce Service: ? Author Type: ? Type: Progress Notes Filed: 12/30/2022 12:36 PM Note Text: POPULATION HEALTH NAVIGATION OUTREACH Action/FYI Sent pt mychart message Pt due for colonoscopy Flu shot AD Pharmacy consult due to high A1C Patient Identified by Name and : NO Outreach Outcome/Action MyChart message sent Advance Directives sent Did you use a PCP flex slot to schedule this appointment? N/A Reason for Outreach Care Gap or Scheduling/Wellness visits Payer: Payor: AETNA MEDICARE / Plan: AETNA MEDICARE HMO / Product Type: HMO / Care Gap Reviewed:: Colorectal Cancer Screening Flu Vaccine AD Pharmacy consult Reminder: Reminder note to check Health Maintenance for items below Health Maintenance items due: Colorectal Cancer Screening Never done Navigation Signature: Sulma Ponce December 30, 2022 12:33 PM [facility] 12-30-2022 Note Patient Outreach (OCTAVIO ALLRED) -------- JONATHAN MONTANEZ ([id number]) 1960 M Date Time Provider Department 12/30/22 SULMA PONCE (PRIYANKA) ARIV During your visit today, we recorded the following information about you: Sulma Ponce 12/30/2022 12:36 PM Signed POPULATION HEALTH NAVIGATION OUTREACH Action/FYI Sent pt mychart message Pt due for colonoscopy Flu shot AD Pharmacy consult due to high A1C Patient Identified by Name and : NO Outreach Outcome/Action MyChart message sent Advance Directives sent Did you use a PCP flex slot to schedule this appointment? N/A Reason for Outreach Care Gap or Scheduling/Wellness visits Payer: Payor: AETNA MEDICARE / Plan: AET MEDICARE HMO / Product Type: HMO / Care Gap Reviewed:: Colorectal Cancer Screening Flu Vaccine AD Pharmacy consult Reminder: Reminder note to check Health Maintenance for items below Health Maintenance items due: Colorectal Cancer Screening Never done Navigation Signature: Sulma Ponce December 30, 2022 12:33 PM Allergies As of Date: 12/30/2022 (No Known Allergies) Date Reviewed: 10/29/2022 Reviewed by: Mo Johnston MD - Fully Assessed Reason for Visit: Population Health Navigation Outreach [3910] Cmt: [employer] care gaps Prescriptions as of 12/30/2022 - lvgyfe-asbjbebz-tqxfbnt (CREON) 24,000-76,000 -120,000 unit delayed release capsule Take 3 capsules by mouth three times daily with meals. - semaglutide (OZEMPIC) 2 mg/dose (8 mg/3 mL) pen injector Inject 2 mg subcutaneously one time a week. - atorvastatin (LIPITOR) 80 mg tablet Take 1 tablet by mouth once daily. - metFORMIN ER (GLUCOPHAGE XR) 500 mg 24 hr tablet Take 2 tablets by mouth twice daily before meals. - Blood-Glucose Sensor (DEXCOM G7 SENSOR) valentin Change sensor every 10 days. USE FOR CONTINUOUS GLUCOSE MONITORING. E10.65 - Blood-Glucose Meter,Continuous (DEXCOM G7 FIELD SERVICES MANAGER) [facility] [place] Dispense one seam feller kit. USE FOR CONTINUOUS GLUCOSE MONITORING. E10.65 - lisinopril-hydroCHLOROthiazide (ZESTORETIC) 20-12.5 mg per tablet Take 1 tablet by mouth once daily. - cyanocobalamin (VITAMIN B-12) 1,000 mcg tab Take 1 tablet by mouth once daily. With food - insulin aspart, niacinamide, (FIASP FLEXTOUCH U-100 INSULIN) 100 unit/mL (3 mL) pen Inject 5 units with meals - Insulin [place], Disposable, (BD TONE 2ND GEN PEN NEEDLE) 32 gauge x Use to inject insulin 4 time daily. - metoprolol tartrate, short acting, (LOPRESSOR) 25 mg tablet Take 1 tablet by mouth twice daily. - insulin degludec (TRESIBA FLEXTOUCH U-100) 100 unit/mL (3 mL) injection pen Inject 32 Units subcutaneously daily at bedtime. - Lancets lancets Test 2 times daily, Insulin Dep? Yes E11.9 DM 2 - blood sugar diagnostic (BLOOD GLUCOSE TEST) test strip Test 2 times daily, Insulin Dep? Yes E11.9 DM 2 - MEDICAL SUPPLY Sig: Abdominal hernia Velcro wrap. # one DX: K43.2 - COMPOUNDED PRESCRIPTION Abdominal hernia Velcro wrap. # one DX: K43.2 - BABY ASPIRIN ORAL Take 81 mg by mouth once daily. Problem List As Of Date 12/30/2022 Noted Resolved Essential hypertension [I10] Mixed hyperlipidemia [E78.2] Pancreatic cancer (HCC) [C25.9] 01/31/2014 Exocrine pancreatic insufficiency (HCC) [K86.81]03/23/2014 Coronary artery disease due to lipid rich plaqu*06/06/2015 Upper back pain on left side [M54.9] 06/06/2015 Cervical pain (neck) [M54.2] 06/06/2015 Colon cancer screening [Z12.11] 03/04/2016 Uncontrolled type 2 diabetes mellitus with hype*09/02/2016 Disorder of prostate [N42.9] 09/09/2016 Medicare annual wellness visit, subsequent [Z00*06/29/2017 Growth of eyelid [D49.2] 12/15/2017 Vitreous floaters of both eyes [H43.393] 12/15/2017 Type 2 diabetes mellitus without retinopathy (H*12/15/2017 GERD without esophagitis [K21.9] 07/05/2018 Stented coronary artery [Z95.5] Diabetic eye exam (HCC) [Z01.00, E11.9] 01/13/2019 Ventral hernia without obstruction or gangrene *06/28/2019 Corns and callus [L84] 06/28/2019 Uncontrolled daytime somnolence [R40.0] 06/28/2019 Witnessed apneic spells [R06.81] 06/28/2019 Medication management [Z79.899] 01/04/2020 Primary insomnia [F51.01] 07/04/2020 Hyperkalemia [E87.5] 01/16/2021 Hyponatremia [E87.1] 01/16/2021 Elevated LFTs [R79.89] 05/11/2022 HERNANDEZ (nonalcoholic steatohepatitis) [K75.81] 05/28/2022 Plantar fasciitis [M72.2] 10/29/2022 Encounter Status:Closed by SULMA PONCE on 12/30/22 [facility] 12-30-2022 History of Present illness Narrative POPULATION HEALTH NAVIGATION OUTREACH Action/I Sent pt mychart message Pt due for colonoscopy Flu shot AD Pharmacy consult due to high A1C Patient Identified by Name and : NO Outreach Outcome/Action MyChart message sent Advance Directives sent Did you use a PCP flex slot to schedule this appointment? N/A Reason for Outreach Care Gap or Scheduling/Wellness visits Payer: Payor: AETNA MEDICARE / Plan: AETNA MEDICARE HMO / Product Type: HMO / Care Gap Reviewed:: Colorectal Cancer Screening Flu Vaccine AD Pharmacy consult Reminder: Reminder note to check Health Maintenance for items below Health Maintenance items due: Colorectal Cancer Screening Never done Navigation Signature: Sulma Ponce December 30, 2022 12:33 PM documented in this encounter [facility] 11-10-2022 Miscellaneous Notes The following approved medication requests have been transmitted electronically. Requested Prescriptions Signed Prescriptions Disp Refills semaglutide (OZEMPIC) 2 mg/dose (8 mg/3 mL) pen injector 2 Each 1 Sig: Inject 2 mg subcutaneously one time a week. Authorizing Provider: MO JOHNSTON MD Patient has been identified by name and date of : Yes Requested Prescriptions Pending Prescriptions Disp Refills semaglutide (OZEMPIC) 2 mg/dose (8 mg/3 mL) pen injector 2 Each 1 Sig: Inject 2 mg subcutaneously one time a week. RX INSTRUCTIONS: Patient aware RX will be sent to pharmacy. No need to notify patient. Socorro Bustillo MA Marco 10/2022 Nov 04/2023 Last refill: 05/2022 Patient has been identified by name and date of : Yes Requested Prescriptions Pending Prescriptions Disp Refills semaglutide (OZEMPIC) 2 mg/dose (8 mg/3 mL) pen injector 2 Each 1 Sig: Inject 2 mg subcutaneously one time a week. RX INSTRUCTIONS: Patient aware RX will be sent to pharmacy. No need to notify patient. Elly Turner documented in this encounter [facility] 11-05-2022 Note Patient Outreach (OCTAVIO TNAV) -------- JONATHAN MONTANEZ ([id number]) 1960 M Date Time Provider Department 11/05/22 MICHEL REYES (PSS) During your visit today, we recorded the following information about you: Michel Billy 11/05/2022 5:07 PM Signed POPULATION HEALTH NAVIGATION OUTREACH Action/FYI 11/05/22 Discuss the following [employer] care gaps: ~Colorectal cancer screening ~Pharmacy appointment (10/13/22 *13.9) Outcome: ~Left message on voice mail and sent [employer]hart message. Patient Identified by Name and : NO Outreach Outcome/Action Unable to reach patient: Left message MyChart message sent Did you use a PCP flex slot to schedule this appointment? N/A Reason for Outreach Care Gap or Scheduling/Wellness visits Payer: Payor: AET MEDICARE / Plan: AETNA MEDICARE HMO / Product Type: HMO / Care Gap Reviewed:: Colorectal Cancer Screening Reminder: Reminder note to check Health Maintenance for items below Health Maintenance items due: COLORECTAL CANCER SCREENING Never done Navigation Signature: Michel Reyes Population Health Navigator Wanda santos November 05, 2022 11:49 AM Allergies As of Date: 11/05/2022 (No Known Allergies) Date Reviewed: 10/29/2022 Reviewed by: Mo Johnston MD - Fully Assessed Reason for Visit: Population Health Navigation Outreach [3910] Cmt: [employer] care gaps Prescriptions as of 11/05/2022 - atorvastatin (LIPITOR) 80 mg tablet Take 1 tablet by mouth once daily. - metFORMIN ER (GLUCOPHAGE XR) 500 mg 24 hr tablet Take 2 tablets by mouth twice daily before meals. - Blood-Glucose Sensor (DEXCOM G7 SENSOR) valentin Change sensor every 10 days. USE FOR CONTINUOUS GLUCOSE MONITORING. E10.65 - Blood-Glucose Meter,Continuous (DEXCOM G7 FIELD SERVICES MANAGER) [facility] [place] Dispense one seam feller kit. USE FOR CONTINUOUS GLUCOSE MONITORING. E10.65 - lisinopril-hydroCHLOROthiazide (ZESTORETIC) 20-12.5 mg per tablet Take 1 tablet by mouth once daily. - cyanocobalamin (VITAMIN B-12) 1,000 mcg tab Take 1 tablet by mouth once daily. With food - insulin aspart, niacinamide, (FIASP FLEXTOUCH U-100 INSULIN) 100 unit/mL (3 mL) pen Inject 5 units with meals - Insulin [place], Disposable, (BD TONE 2ND GEN PEN NEEDLE) 32 gauge x 5/32 Use to inject insulin 4 time daily. - semaglutide (OZEMPIC) 2 mg/dose (8 mg/3 mL) pen injector Inject 2 mg subcutaneously one time a week. - svrtxm-seoinjay-kmjblfm (CREON) 24,000-76,000 -120,000 unit delayed release capsule Take 3 capsules by mouth three times daily with meals. - metoprolol tartrate, short acting, (LOPRESSOR) 25 mg tablet Take 1 tablet by mouth twice daily. - insulin degludec (TRESIBA FLEXTOUCH U-100) 100 unit/mL (3 mL) injection pen Inject 32 Units subcutaneously daily at bedtime. - Lancets lancets Test 2 times daily, Insulin Dep? Yes E11.9 DM 2 - blood sugar diagnostic (BLOOD GLUCOSE TEST) test strip Test 2 times daily, Insulin Dep? Yes E11.9 DM 2 - MEDICAL SUPPLY Sig: Abdominal hernia Velcro wrap. # one DX: K43.2 - COMPOUNDED PRESCRIPTION Abdominal hernia Velcro wrap. # one DX: K43.2 - BABY ASPIRIN ORAL Take 81 mg by mouth once daily. Problem List As Of Date 11/05/2022 Noted Resolved Essential hypertension [I10] Mixed hyperlipidemia [E78.2] Pancreatic cancer (HCC) [C25.9] 01/31/2014 Exocrine pancreatic insufficiency (HCC) [K86.81]03/23/2014 Coronary artery disease due to lipid rich plaqu*06/06/2015 Upper back pain on left side [M54.9] 06/06/2015 Cervical pain (neck) [M54.2] 06/06/2015 Colon cancer screening [Z12.11] 03/04/2016 Uncontrolled type 2 diabetes mellitus with hype*09/02/2016 Disorder of prostate [N42.9] 09/09/2016 Medicare annual wellness visit, subsequent [Z00*06/29/2017 Growth of eyelid [D49.2] 12/15/2017 Vitreous floaters of both eyes [H43.393] 12/15/2017 Type 2 diabetes mellitus without retinopathy (H*12/15/2017 GERD without esophagitis [K21.9] 07/05/2018 Stented coronary artery [Z95.5] Diabetic eye exam (HCC) [Z01.00, E11.9] 01/13/2019 Ventral hernia without obstruction or gangrene *06/28/2019 Corns and callus [L84] 06/28/2019 Uncontrolled daytime somnolence [R40.0] 06/28/2019 Witnessed apneic spells [R06.81] 06/28/2019 Medication management [Z79.899] 01/04/2020 Primary insomnia [F51.01] 07/04/2020 Hyperkalemia [E87.5] 01/16/2021 Hyponatremia [E87.1] 01/16/2021 Elevated LFTs [R79.89] 05/11/2022 HERNANDEZ (nonalcoholic steatohepatitis) [K75.81] 05/28/2022 Plantar fasciitis [M72.2] 10/29/2022 Encounter Status:Closed by MICHEL BILLY on 11/05/22 [facility] 11-05-2022 Note HNO ID: [id number] Author: Michel Billy Service: ? Author Type: ? Type: Progress Notes Filed: 11/05/2022 5:07 PM Note Text: POPULATION HEALTH NAVIGATION OUTREACH Action/11/05/22 Discuss the following [employer] care gaps: ~Colorectal cancer screening ~Pharmacy appointment (10/13/22 *13.9) Outcome: ~Left message on voice mail and sent [employer] message. Patient Identified by Name and : NO Outreach Outcome/Action Unable to reach patient: Left message MyChart message sent Did you use a PCP flex slot to schedule this appointment? N/A Reason for Outreach Care Gap or Scheduling/Wellness visits Payer: Payor: [employer] MEDICARE / Plan: [employer] MEDICARE HMO / Product Type: HMO / Care Gap Reviewed:: Colorectal Cancer Screening Reminder: Reminder note to check Health Maintenance for items below Health Maintenance items due: COLORECTAL CANCER SCREENING Never done Navigation Signature: Michel Reyes Population Health Navigator Wanda santos November 05, 2022 11:49 AM [facility] 11-05-2022 History of Present illness Narrative POPULATION HEALTH NAVIGATION OUTREACH Action/I 11/05/22 Discuss the following [employer] care gaps: ~Colorectal cancer screening ~Pharmacy appointment (10/13/22 *13.9) Outcome: ~Left message on voice mail and sent MyChart message. Patient Identified by Name and : NO Outreach Outcome/Action Unable to reach patient: Left message MyChart message sent Did you use a PCP flex slot to schedule this appointment? N/A Reason for Outreach Care Gap or Scheduling/Wellness visits Payer: Payor: [employer] MEDICARE / Plan: AET MEDICARE HMO / Product Type: HMO / Care Gap Reviewed:: Colorectal Cancer Screening Reminder: Reminder note to check Health Maintenance for items below Health Maintenance items due: COLORECTAL CANCER SCREENING Never done Navigation Signature: Michel Reyes Population Health Navigator Wanda santos November 05, 2022 11:49 AM documented in this encounter [facility] 10-30-2022 Miscellaneous Notes Left message of same on pt's identified vm. Ena Brush LPN Let patient know the muscle enzyme test was normal. documented in this encounter [facility] 10-29-2022 Miscellaneous Notes Our office called [facility]. [facility] states issue with insurance card on file. Staff confirmed insurance information. RN called , [employer], and relayed info. RN instructed to call insurance company to check status of coverage and card in case of updates. RN also instructed to check eligibility of coverage with [facility] and if a DME supplier was needed. verbalized understanding. Will call with update at later date. Patient in office today and says [facility] in [place] has told him they need some type of approval or further info from provider for the dexcom. Will forward info to Endo documented in this encounter [facility] 10-29-2022 Note HNO ID: [id number] Author: Mo Johnston MD Service: ? Author Type: Physician Type: Progress Notes Filed: 10/29/2022 9:14 AM Note Text: Chief Complaint Patient presents with: Pain HPI Jonathan Montanez is a 61 year old male who presents here today for pain in both feet; stiffness in legs; difficulty walking. Office visit - pain in both feet; stiffness in legs. Pain has been experiencing pain in both feet x couple of weeks and stiffness in both legs. Making it more difficult to walk. Patient has not been able to ride his zora, as he is afraid he will not be able to hold up the bike. It is a zora soft tail. Pain hurts most when he first stands up and improves with walking unless he is walking for a long time. Nurse also noticed redness on both wrist. Patient indicated that it is always like that. No pain or injury. Also patient is trying to get the Dexcom. [facility] is saying waiting on physician to approve. Was ordered by endo ROSIN BARREL FILLER. Patient has not been checking his sugars. Office visit - 6 month follow up 09/2022 Patient with hx of HTN, Hyperlipidemia, DM 2, pancreatic cancer seeing oncology, CAD, GERD, pancreatic insufficiency, insomnia, ventral hernia as well as those reviewed and addressed below and in ROS. Patient's was contacted during appt for some concerns. Patient does not want to inject himself and with working she cannot always be available to do the pre-meal injection and can only assist with the dinner/supper injection in the evening and wondering if she could do it all at one time. I advised her that it would probably be too much since fast acting but can reach out to Jasmin Dunham to see if a change can be made such as a combination of some short and long twice a day. Also his insurance will not cover the free style Nelda but will cover Dexcom. No concerns currently. Office visit - Medicare wellness 04/2022 Patient with hx of HTN, Hyperlipidemia, DM 2, pancreatic cancer seeing oncology, CAD, GERD, pancreatic insufficiency, insomnia, ventral hernia as well as those reviewed and addressed below and in ROS. Past medical history, appointments, medications, allergies reviewed. Previous Medical History PAST MEDICAL HISTORY Diagnosis Date Cervical pain (neck) 06/06/2015 Corns and callus 06/28/2019 Coronary artery disease due to lipid rich plaque 06/06/2015 Diabetic eye exam (HCC) 01/13/2019 Last done: 01/13/2019 Elevated LFTs 05/11/2022 Essential hypertension Exocrine pancreatic insufficiency 03/23/2014 GERD without esophagitis 07/05/2018 Growth of eyelid 12/15/2017 Incisional hernia, without obstruction or gangrene 06/29/2017 Medicare annual wellness visit, subsequent 06/29/2017 Medicare Part B: 08/11/2016 last done: 05/08/2022 Mixed hyperlipidemia Pancreatic cancer (HCC) Primary insomnia 07/04/2020 Stented coronary artery Mid LAD REJI,proximal-mid RCA stent Type 2 diabetes mellitus without retinopathy (HCC) 12/15/2017 Uncontrolled type 2 diabetes mellitus without complication, without long-term current use of insulin 09/02/2016 Upper back pain on left side 06/06/2015 Ventral hernia without obstruction or gangrene 06/28/2019 Vitreous floaters of both eyes 12/15/2017 Previous Surgical History PAST SURGICAL HISTORY Procedure Laterality Date ENDOSCOPIC ULTRASOUND W/FNA_*FL 01/23/2014 ERCP DX COLLECTION SPECIMEN BRUSHING/WASHING 01/17/14 Cholangiopancreatography (ERCP) [facility] [place] inpt ESOPHAGOGASTRODUODENOSCOPY TRANSORAL DIAGNOSTIC 09/12/15 EGD ([facility] [place]) PAST SURGICAL HISTORY OF 2 coranary stents PAST SURGICAL HISTORY OF 02/20/2014 Whipple procedure Family History FAMILY HISTORY Problem Relation Age of Onset Hypertension Mother Breast Cancer Sister Diabetes Brother other (COVID) Brother No Ocular Disease No Family History Patient Allergies ALLERGIES No Known Allergies Current Medications Current Outpatient Medications on File Prior to Visit Medication Sig atorvastatin (LIPITOR) 80 mg tablet Take 1 tablet by mouth once daily. metFORMIN ER (GLUCOPHAGE XR) 500 mg 24 hr tablet Take 2 tablets by mouth twice daily before meals. Blood-Glucose Sensor (DEXCOM G7 SENSOR) valentin Change sensor every 10 days. USE FOR CONTINUOUS GLUCOSE MONITORING. E10.65 Blood-Glucose Meter,Continuous (DEXCOM G7 FIELD SERVICES MANAGER) [facility] [place] Dispense one seam feller kit. USE FOR CONTINUOUS GLUCOSE MONITORING. E10.65 lisinopril-hydroCHLOROthiazide (ZESTORETIC) 20-12.5 mg per tablet Take 1 tablet by mouth once daily. cyanocobalamin (VITAMIN B-12) 1,000 mcg tab Take 1 tablet by mouth once daily. With food insulin aspart, niacinamide, (FIASP FLEXTOUCH U-100 INSULIN) 100 unit/mL (3 mL) pen Inject 5 units with meals Insulin [place], Disposable, (BD TONE 2ND GEN PEN NEEDLE) 32 gauge x Use to inject insulin 4 time daily. semaglutide (OZEMPIC) 2 mg/dose (8 mg/3 mL) pen injector Inject 2 mg subcutaneously one time a week. lkrwyg-uescjvuj-yrimwpv (more content not included)... [facility] 10-29-2022 History of Present illness Narrative Chief Complaint Patient presents with: Pain HPI Jonathan Montanez is a 61 year old male who presents here today for pain in both feet; stiffness in legs; difficulty walking. Office visit - pain in both feet; stiffness in legs. Pain has been experiencing pain in both feet x couple of weeks and stiffness in both legs. Making it more difficult to walk. Patient has not been able to ride his zora, as he is afraid he will not be able to hold up the bike. It is a zora soft tail. Pain hurts most when he first stands up and improves with walking unless he is walking for a long time. Nurse also noticed redness on both wrist. Patient indicated that it is always like that. No pain or injury. Also patient is trying to get the Dexcom. [facility] is saying waiting on physician to approve. Was ordered by endo ROSIN BARREL FILLER. Patient has not been checking his sugars. Office visit - 6 month follow up 09/2022 Patient with hx of HTN, Hyperlipidemia, DM 2, pancreatic cancer seeing oncology, CAD, GERD, pancreatic insufficiency, insomnia, ventral hernia as well as those reviewed and addressed below and in ROS. Patient's was contacted during appt for some concerns. Patient does not want to inject himself and with working she cannot always be available to do the pre-meal injection and can only assist with the dinner/supper injection in the evening and wondering if she could do it all at one time. I advised her that it would probably be too much since fast acting but can reach out to Jasmin Dunham to see if a change can be made such as a combination of some short and long twice a day. Also his insurance will not cover the free style Nelda but will cover Dexcom. No concerns currently. Office visit - Medicare wellness 04/2022 Patient with hx of HTN, Hyperlipidemia, DM 2, pancreatic cancer seeing oncology, CAD, GERD, pancreatic insufficiency, insomnia, ventral hernia as well as those reviewed and addressed below and in ROS. Past medical history, appointments, medications, allergies reviewed. Previous Medical History PAST MEDICAL HISTORY Diagnosis Date Cervical pain (neck) 06/06/2015 Corns and callus 06/28/2019 Coronary artery disease due to lipid rich plaque 06/06/2015 Diabetic eye exam (HCC) 01/13/2019 Last done: 01/13/2019 Elevated LFTs 05/11/2022 Essential hypertension Exocrine pancreatic insufficiency 03/23/2014 GERD without esophagitis 07/05/2018 Growth of eyelid 12/15/2017 Incisional hernia, without obstruction or gangrene 06/29/2017 Medicare annual wellness visit, subsequent 06/29/2017 Medicare Part B: 08/11/2016 last done: 05/08/2022 Mixed hyperlipidemia Pancreatic cancer (HCC) Primary insomnia 07/04/2020 Stented coronary artery Mid LAD REJI,proximal-mid RCA stent Type 2 diabetes mellitus without retinopathy (HCC) 12/15/2017 Uncontrolled type 2 diabetes mellitus without complication, without long-term current use of insulin 09/02/2016 Upper back pain on left side 06/06/2015 Ventral hernia without obstruction or gangrene 06/28/2019 Vitreous floaters of both eyes 12/15/2017 Previous Surgical History PAST SURGICAL HISTORY Procedure Laterality Date ENDOSCOPIC ULTRASOUND W/FNA_*FL 01/23/2014 ERCP DX COLLECTION SPECIMEN BRUSHING/WASHING 01/17/14 Cholangiopancreatography (ERCP) [facility] [place] inpt ESOPHAGOGASTRODUODENOSCOPY TRANSORAL DIAGNOSTIC 09/12/15 EGD ([facility]) PAST SURGICAL HISTORY OF 2 coranary stents PAST SURGICAL HISTORY OF 02/20/2014 Whipple procedure Family History FAMILY HISTORY Problem Relation Age of Onset Hypertension Mother Breast Cancer Sister Diabetes Brother other (COVID) Brother No Ocular Disease No Family History Patient Allergies ALLERGIES No Known Allergies Current Medications Current Outpatient Medications on File Prior to Visit Medication Sig atorvastatin (LIPITOR) 80 mg tablet Take 1 tablet by mouth once daily. metFORMIN ER (GLUCOPHAGE XR) 500 mg 24 hr tablet Take 2 tablets by mouth twice daily before meals. Blood-Glucose Sensor (DEXCOM G7 SENSOR) valentin Change sensor every 10 days. USE FOR CONTINUOUS GLUCOSE MONITORING. E10.65 Blood-Glucose Meter,Continuous (DEXCOM G7 FIELD SERVICES MANAGER) [facility] [place] Dispense one seam feller kit. USE FOR CONTINUOUS GLUCOSE MONITORING. E10.65 lisinopril-hydroCHLOROthiazide (ZESTORETIC) 20-12.5 mg per tablet Take 1 tablet by mouth once daily. cyanocobalamin (VITAMIN B-12) 1,000 mcg tab Take 1 tablet by mouth once daily. With food insulin aspart, niacinamide, (FIASP FLEXTOUCH U-100 INSULIN) 100 unit/mL (3 mL) pen Inject 5 units with meals Insulin [place], Disposable, (BD TONE 2ND GEN PEN NEEDLE) 32 gauge x / Use to inject insulin 4 time daily. semaglutide (OZEMPIC) 2 mg/dose (8 mg/3 mL) pen injector Inject 2 mg subcutaneously one time a week. gibjel-sehjbbjp-qwftozp (CREON) 24,000-76,000 -120,000 unit delayed release capsule Take 3 capsules by mouth three times daily with meals. metoprolol tartrate, short acting, (LOPRESSOR) 25 mg tablet Take 1 tablet by mouth twice daily. insulin degludec (TRESIBA FLEXTOUCH U-100) 100 unit/mL (3 mL) injection pen Inject 32 Units subcutaneously daily at bedtime. Lancets lancets Test 2 times daily, Insulin Dep? Yes E11.9 DM 2 blood sugar diagnostic (BLOOD GLUCOSE TEST) test strip Test 2 times daily, Insulin Dep? Yes E11.9 DM 2 MEDICAL SUPPLY Sig: Abdominal hernia Velcro wrap. # one DX: K43.2 COMPOUNDED PRESCRIPTION Abdominal hernia Velcro wrap. # one DX: K43.2 BABY ASPIRIN ORAL Take 81 mg by mouth once daily. No current facility-administered medications on file prior to visit. Social History Social History Tobacco Use Smoking status: Never Smokeless tobacco: Never Vaping Use Vaping Use: Never used Substance Use Topics Alcohol use: Yes Comment: 2-3 beers daily, occasional shot of crown Drug use: No Review of Symptoms REVIEW OF SYSTEMS See HPI EXAM: BP 122/86 (BP Site: Right Arm, BP Position: Sitting, BP Cuff Size: Large Adult) Pulse 80 Temp 36.5 C (97.7 F) Resp 18 Wt 89.8 kg (198 lb) BMI 32.70 kg/m Musculoskeletal: there is pain to palpation of the distal heel portion on both feet that reproduces his pain. No pain with compression of the metatarsal bones. He has flattened arches bilaterally. His dorsiflexion is limited by calf muscle tightness and this causes discomfort in the calf. . Health Maintenance List COLORECTAL CANCER SCREENING Never done DTAP,TDAP,TD(1 - Tdap) due on 05/08/2023 SHINGRIX VACCINE(1 of 2) due on 05/08/2023 INFLUENZA(1) due on 12/12/2022 HBA1C due on 01/13/2023 DIABETIC FOOT EXAM due on 05/08/2023 BP CONTROLLED (<130/80) due on 05/08/2023 ANNUAL PCP TEAM CHRONIC DISEASE VISIT due on 09/16/2023 DILATED RETINAL EXAM due on 09/23/2023 URINE ALBUMIN:CREATININE RATIO due on 10/14/2023 LDL CHOLESTEROL due on 10/14/2023 PROSTATE CANCER SCREENING DISCUSSION due on 05/08/2027 PNEUMOCOCCAL(3 - PPSV23 or PCV20) due on 11/22/2027 DEPRESSION ASSESSMENT Completed HEPATITIS C SCREENING Completed COVID-19 VACCINE Completed HPV VACCINE Aged Out HIV SCREENING Discontinued Data reviewed A/P ASSESSMENT/PLAN: 1. Plantar fasciitis - ICD9: 728.71, ICD10: M72.2 - Hep program provided and advised on icing and getting heel gel cups. 2. Myalgia - ICD9: 729.1, ICD10: M79.10 Check - CK CREATINE KINASE F/u if not resolving. If so will consider steroid injection and PHYSICAL THERAPY. Mo Johnston MD documented in this encounter [facility] 10-28-2022 Miscellaneous Notes NOV 10/29/22 Nidia Loja MA Patient has been identified by name and date of : Yes Last office visit in this department: 09/15/2022 RX INSTRUCTIONS: Patient aware RX will be sent to pharmacy. No need to notify patient. Patient phones requesting refills as follows: Requested Prescriptions Pending Prescriptions Disp Refills atorvastatin (LIPITOR) 80 mg tablet 90 tablet 1 Sig: Take 1 tablet by mouth once daily. Please review and advise. Rebecca Lozano documented in this encounter [facility] 09-22-2022 Note HNO ID: [id number] Author: Albina Aguirre, OD Service: ? Author Type: COMPUTER DESIGNER Type: Progress Notes Filed: 09/22/2022 8:37 AM Note Text: 1. Type 2 diabetes mellitus without retinopathy (HCC) Risk of diabetic changes and vision loss can be minimized by tight control of blood sugar, blood pressure, and cholesterol levels. Educated patient to continue care with primary care doctor and/or frame aligner to maintain optimum levels as they are important to avoid ocular complications. Encouraged patient to call the office immediately with any changes to vision or visual concerns. Advised to not wait until the next scheduled exam. 2. Asteroid hyalosis of right eye Monitor 3. Vitreous floaters of both eyes Stable-monitor 4. Nuclear sclerosis of both eyes Mild-monitor 5. Growth of eyelid Stable- continue to monitor Follow-up in 1 year Albina Aguirre, OD September 22, 2022 8:36 AM [facility] 09-19-2022 Miscellaneous Notes Duplicate request. documented in this encounter [facility] 09-16-2022 Miscellaneous Notes Patient returned call and given provider's message below with verbalized understanding. Left message for pt to contact office. Ena Brush LPN Let patient know his liver function lab shows one of his liver functions is back to normal and the other is still elevated but stable. Continue to try to reduce fat in diet and working on some weight loss to further help. documented in this encounter [facility] 09-15-2022 Note HNO ID: [id number] Author: Mo Johnston MD Service: ? Author Type: Physician Type: Progress Notes Filed: 09/16/2022 12:17 PM Note Text: Chief Complaint Patient presents with: F/U 6 months HPI Jonathan Montanez is a 61 year old male who presents here today for 6 month follow up. Office visit - 6 month follow up Patient with hx of HTN, Hyperlipidemia, DM 2, pancreatic cancer seeing oncology, CAD, GERD, pancreatic insufficiency, insomnia, ventral hernia as well as those reviewed and addressed below and in ROS. Patient's was contacted during appt for some concerns. Patient does not want to inject himself and with working she cannot always be available to do the pre-meal injection and can only assist with the dinner/supper injection in the evening and wondering if she could do it all at one time. I advised her that it would probably be too much since fast acting but can reach out to Jasmin Dunham to see if a change can be made such as a combination of some short and long twice a day. Also his insurance will not cover the free style Nelda but will cover Dexcom. No concerns currently. Office visit - Medicare wellness 04/2022 Patient with hx of HTN, Hyperlipidemia, DM 2, pancreatic cancer seeing oncology, CAD, GERD, pancreatic insufficiency, insomnia, ventral hernia as well as those reviewed and addressed below and in ROS. Past medical history, appointments, medications, allergies reviewed. Previous Medical History PAST MEDICAL HISTORY Diagnosis Date Cervical pain (neck) 06/06/2015 Corns and callus 06/28/2019 Coronary artery disease due to lipid rich plaque 06/06/2015 Diabetic eye exam (HCC) 01/13/2019 Last done: 01/13/2019 Elevated LFTs 05/11/2022 Essential hypertension Exocrine pancreatic insufficiency 03/23/2014 GERD without esophagitis 07/05/2018 Growth of eyelid 12/15/2017 Incisional hernia, without obstruction or gangrene 06/29/2017 Medicare annual wellness visit, subsequent 06/29/2017 Medicare Part B: 08/11/2016 last done: 05/08/2022 Mixed hyperlipidemia Pancreatic cancer (HCC) Primary insomnia 07/04/2020 Stented coronary artery Mid LAD REJI,proximal-mid RCA stent Type 2 diabetes mellitus without retinopathy (HCC) 12/15/2017 Uncontrolled type 2 diabetes mellitus without complication, without long-term current use of insulin 09/02/2016 Upper back pain on left side 06/06/2015 Ventral hernia without obstruction or gangrene 06/28/2019 Vitreous floaters of both eyes 12/15/2017 Previous Surgical History PAST SURGICAL HISTORY Procedure Laterality Date ENDOSCOPIC ULTRASOUND W/FNA_*FL 01/23/2014 ERCP DX COLLECTION SPECIMEN BRUSHING/WASHING 01/17/14 Cholangiopancreatography (ERCP) [facility] [place] inpt ESOPHAGOGASTRODUODENOSCOPY TRANSORAL DIAGNOSTIC 09/12/15 EGD ([facility]) PAST SURGICAL HISTORY OF 2 coranary stents PAST SURGICAL HISTORY OF 02/20/2014 Whipple procedure Family History FAMILY HISTORY Problem Relation Age of Onset Hypertension Mother Breast Cancer Sister Diabetes Brother other (COVID) Brother Patient Allergies ALLERGIES No Known Allergies Current Medications Current Outpatient Medications on File Prior to Visit Medication Sig lisinopril-hydroCHLOROthiazide (ZESTORETIC) 20-12.5 mg per tablet Take 1 tablet by mouth once daily. flash glucose scanning reader (FREESTYLE NELDA 2 READER) Dispense one reader kit. E10.65 Surgical Type I DM. flash glucose sensor (FREESTYLE NELDA 2 SENSOR) kit Change sensor every 14 days. USE FOR CONTINUOUS GLUCOSE MONITORING. E10.65 surgical type I. cyanocobalamin (VITAMIN B-12) 1,000 mcg tab Take 1 tablet by mouth once daily. With food insulin aspart, niacinamide, (FIASP FLEXTOUCH U-100 INSULIN) 100 unit/mL (3 mL) pen Inject 5 units with meals Insulin [place], Disposable, (BD TONE 2ND GEN PEN NEEDLE) 32 gauge x 5/32 Use to inject insulin 4 time daily. semaglutide (OZEMPIC) 2 mg/dose (8 mg/3 mL) pen injector Inject 2 mg subcutaneously one time a week. yzeioo-zrhcdzht-woxlycy (CREON) 24,000-76,000 -120,000 unit delayed release capsule Take 3 capsules by mouth three times daily with meals. metoprolol tartrate, short acting, (LOPRESSOR) 25 mg tablet Take 1 tablet by mouth twice daily. atorvastatin (LIPITOR) 80 mg tablet Take 1 tablet by mouth once daily. insulin degludec (TRESIBA FLEXTOUCH U-100) 100 unit/mL (3 mL) injection pen Inject 32 Units subcutaneously daily at bedtime. metFORMIN ER (GLUCOPHAGE XR) 500 mg 24 hr tablet Take 2 tablets by mouth twice daily before meals. Lancets lancets Test 2 times daily, Insulin Dep? Yes E11.9 DM 2 blood sugar diagnostic (BLOOD GLUCOSE TEST) test strip Test 2 times daily, Insulin Dep? Yes E11.9 DM 2 MEDICAL SUPPLY Sig: Abdominal hernia Velcro wrap. # one DX: K43.2 COMPOUNDED PRESCRIPTION Abdominal hernia Velcro wrap. # one DX: K43.2 BABY ASPIRIN ORAL Take 81 mg by mouth once daily. No current facility-administered medications on file prior (more content not included)... [facility] 09-15-2022 History of Present illness Narrative Chief Complaint Patient presents with: F/U 6 months HPI Jonathan Montanez is a 61 year old male who presents here today for 6 month follow up. Office visit - 6 month follow up Patient with hx of HTN, Hyperlipidemia, DM 2, pancreatic cancer seeing oncology, CAD, GERD, pancreatic insufficiency, insomnia, ventral hernia as well as those reviewed and addressed below and in ROS. Patient's was contacted during appt for some concerns. Patient does not want to inject himself and with working she cannot always be available to do the pre-meal injection and can only assist with the dinner/supper injection in the evening and wondering if she could do it all at one time. I advised her that it would probably be too much since fast acting but can reach out to Jasmin Dunham to see if a change can be made such as a combination of some short and long twice a day. Also his insurance will not cover the free style Nelda but will cover Dexcom. No concerns currently. Office visit - Medicare wellness 04/2022 Patient with hx of HTN, Hyperlipidemia, DM 2, pancreatic cancer seeing oncology, CAD, GERD, pancreatic insufficiency, insomnia, ventral hernia as well as those reviewed and addressed below and in ROS. Past medical history, appointments, medications, allergies reviewed. Previous Medical History PAST MEDICAL HISTORY Diagnosis Date Cervical pain (neck) 06/06/2015 Corns and callus 06/28/2019 Coronary artery disease due to lipid rich plaque 06/06/2015 Diabetic eye exam (HCC) 01/13/2019 Last done: 01/13/2019 Elevated LFTs 05/11/2022 Essential hypertension Exocrine pancreatic insufficiency 03/23/2014 GERD without esophagitis 07/05/2018 Growth of eyelid 12/15/2017 Incisional hernia, without obstruction or gangrene 06/29/2017 Medicare annual wellness visit, subsequent 06/29/2017 Medicare Part B: 08/11/2016 last done: 05/08/2022 Mixed hyperlipidemia Pancreatic cancer (HCC) Primary insomnia 07/04/2020 Stented coronary artery Mid LAD REJI,proximal-mid RCA stent Type 2 diabetes mellitus without retinopathy (HCC) 12/15/2017 Uncontrolled type 2 diabetes mellitus without complication, without long-term current use of insulin 09/02/2016 Upper back pain on left side 06/06/2015 Ventral hernia without obstruction or gangrene 06/28/2019 Vitreous floaters of both eyes 12/15/2017 Previous Surgical History PAST SURGICAL HISTORY Procedure Laterality Date ENDOSCOPIC ULTRASOUND W/FNA_*FL 01/23/2014 ERCP DX COLLECTION SPECIMEN BRUSHING/WASHING 01/17/14 Cholangiopancreatography (ERCP) [facility] [place] inpt ESOPHAGOGASTRODUODENOSCOPY TRANSORAL DIAGNOSTIC 09/12/15 EGD (mac) PAST SURGICAL HISTORY OF 2 coranary stents PAST SURGICAL HISTORY OF 02/20/2014 Whipple procedure Family History FAMILY HISTORY Problem Relation Age of Onset Hypertension Mother Breast Cancer Sister Diabetes Brother other (COVID) Brother Patient Allergies ALLERGIES No Known Allergies Current Medications Current Outpatient Medications on File Prior to Visit Medication Sig lisinopril-hydroCHLOROthiazide (ZESTORETIC) 20-12.5 mg per tablet Take 1 tablet by mouth once daily. flash glucose scanning reader (FREESTYLE NELDA 2 READER) Dispense one reader kit. E10.65 Surgical Type I DM. flash glucose sensor (FREESTYLE NELDA 2 SENSOR) kit Change sensor every 14 days. USE FOR CONTINUOUS GLUCOSE MONITORING. E10.65 surgical type I. cyanocobalamin (VITAMIN B-12) 1,000 mcg tab Take 1 tablet by mouth once daily. With food insulin aspart, niacinamide, (FIASP FLEXTOUCH U-100 INSULIN) 100 unit/mL (3 mL) pen Inject 5 units with meals Insulin [place], Disposable, (BD TONE 2ND GEN PEN NEEDLE) 32 gauge x 5/32 Use to inject insulin 4 time daily. semaglutide (OZEMPIC) 2 mg/dose (8 mg/3 mL) pen injector Inject 2 mg subcutaneously one time a week. afaczt-iaqmnsxt-ytsedty (CREON) 24,000-76,000 -120,000 unit delayed release capsule Take 3 capsules by mouth three times daily with meals. metoprolol tartrate, short acting, (LOPRESSOR) 25 mg tablet Take 1 tablet by mouth twice daily. atorvastatin (LIPITOR) 80 mg tablet Take 1 tablet by mouth once daily. insulin degludec (TRESIBA FLEXTOUCH U-100) 100 unit/mL (3 mL) injection pen Inject 32 Units subcutaneously daily at bedtime. metFORMIN ER (GLUCOPHAGE XR) 500 mg 24 hr tablet Take 2 tablets by mouth twice daily before meals. Lancets lancets Test 2 times daily, Insulin Dep? Yes E11.9 DM 2 blood sugar diagnostic (BLOOD GLUCOSE TEST) test strip Test 2 times daily, Insulin Dep? Yes E11.9 DM 2 MEDICAL SUPPLY Sig: Abdominal hernia Velcro wrap. # one DX: K43.2 COMPOUNDED PRESCRIPTION Abdominal hernia Velcro wrap. # one DX: K43.2 BABY ASPIRIN ORAL Take 81 mg by mouth once daily. No current facility-administered medications on file prior to visit. Social History Social History Tobacco Use Smoking status: Never Smokeless tobacco: Never Vaping Use Vaping Use: Never used Substance Use Topics Alcohol use: Yes Comment: 2-3 beers daily, occasional shot of crown Drug use: No Review of Symptoms REVIEW OF SYSTEMS GENERAL: No unintentional weight loss, malaise or fevers NECK: Negative for lumps, goiter, pain and significant neck swelling RESPIRATORY: Negative for cough, hemoptysis, wheezing, COPD, dyspnea or shortness of breath CARDIOVASCULAR: Negative for chest pain, leg swelling, hypertension, CHF or palpitations GI: No nausea, vomiting, or diarrhea and No heartburn or reflux symptoms : No history of dysuria, blood ENDOCRINE: may have a low BS's every once in a great while. NEURO: No history of headaches, syncope, paralysis, seizures or tremors EXAM: BP 126/86 (BP Site: Right Arm, BP Position: Sitting, BP Cuff Size: Regular Adult) Pulse 88 Resp 18 Wt 89.4 kg (197 lb) BMI 32.53 kg/m Last 4 Encounter Wt Readings: Date: Wt: 09/15/2022 89.4 kg (197 lb) 05/08/2022 91.2 kg (201 lb) 04/16/2022 93.4 kg (206 lb) 08/26/2021 87.1 kg (192 lb) General Appearance: Well appearing, alert, in no acute distress, well-hydrated, well nourished. and Obese. Eyes: Anicteric sclera. Pupils are equally round and reactive to light. Extraocular movements are intact. . Neck: Supple, no adenopathy; thyroid symmetric, normal size, no bruits. Lungs: Lungs clear to auscultation. No wheezing, rhonchi, rales.. Heart: RRR without murmur, gallop, or rubs. No ectopy. Abdomen: Normal abdominal exam, Abdomen soft, non-tender. Bowel sounds normal. No masses, organomegaly. Extremities: No deformities, edema, skin discoloration, Good capillary refill. . Peripheral Pulses: Normal. Neurologic: Gait normal. Sensation to light touch and crainal nerves 2-12 intact.. Health Maintenance List COLORECTAL CANCER SCREENING Never done DILATED RETINAL EXAM due on 05/13/2022 HBA1C due on 08/06/2022 DTAP,TDAP,TD(1 - Tdap) due on 05/08/2023 SHINGRIX VACCINE(1 of 2) due on 05/08/2023 URINE ALBUMIN:CREATININE RATIO due on 05/08/2023 LDL CHOLESTEROL due on 05/08/2023 DIABETIC FOOT EXAM due on 05/08/2023 ANNUAL PCP TEAM CHRONIC DISEASE VISIT due on 05/08/2023 BP CONTROLLED (<130/80) due on 05/08/2023 PROSTATE CANCER SCREENING DISCUSSION due on 05/08/2027 PNEUMOCOCCAL(3 - PPSV23 if available, else PCV20) due on 11/22/2027 INFLUENZA Completed DEPRESSION ASSESSMENT Completed HEPATITIS C SCREENING Completed COVID-19 VACCINE Completed HIV SCREENING Discontinued Data reviewed A/P ASSESSMENT/PLAN: 1. Uncontrolled type 2 diabetes mellitus with hyperglycemia (HCC) - ICD9: 250.02, ICD10: E11.65 (primary diagnosis) - Uncontrolled - Continue current medications - Counseled on healthy diet and regular exercise - Discussed need for and benefit of weight loss. BMI 32.53 kg/(m^2) - management per Endo 2. Type 2 diabetes mellitus without retinopathy (HCC) - ICD9: 250.00, ICD10: E11.9 - as above - CONSULT TO OPHTHALMOLOGY 3. Diabetic eye exam (HCC) - ICD9: V72.0, 250.00, ICD10: Z01.00, E11.9 - CONSULT TO OPHTHALMOLOGY 4. Essential hypertension - ICD9: 401.9, ICD10: I10 - Controlled - Continue current medications - Recommend home blood pressure monitoring, to bring results to next visit - Encouraged sodium restriction, DASH or Mediterranean diet - Recommend regular aerobic exercise - HEPATIC FUNCTION PNL 5. Mixed hyperlipidemia - ICD9: 272.2, ICD10: E78.2 - Controlled - Counseled on healthy diet and regular exercise - Discussed need for and benefit of weight loss. BMI 32.53 kg/(m^2) - cont current Tx. - HEPATIC FUNCTION PNL 6. Coronary artery disease due to lipid rich plaque - ICD9: 414.00, 414.3, ICD10: I25.10, I25.83 - clinically stable no changes needed. 7. GERD without esophagitis - ICD9: 530.81, ICD10: K21.9 - management via diet. 8. Malignant neoplasm of head of pancreas (HCC) - ICD9: 157.0, ICD10: C25.0 - management per oncology 9. Exocrine pancreatic insufficiency - ICD9: 577.8, ICD10: K86.81 - cont creon. 10. Primary insomnia - ICD9: 307.42, ICD10: F51.01 - stable no changes. 11. HERNANDEZ (nonalcoholic steatohepatitis) - ICD9: 571.8, ICD10: K75.81 Check - HEPATIC FUNCTION PNL 12. Colon cancer screening - ICD9: V76.51, ICD10: Z12.11 Check - FECAL OCCULT BLOOD TEST 13. Need for vaccination - ICD9: V05.9, ICD10: Z23 - PFIZER-BIONTECH COVID-19 BIVALENT VACCINE, AGE 12+ YR: given F/u Apr 2023 for extensive. Mo Johnston MD documented in this encounter [facility] 08-17-2022 Miscellaneous Notes The following approved medication requests have been transmitted electronically. Requested Prescriptions Signed Prescriptions Disp Refills lisinopril-hydroCHLOROthiazide (ZESTORETIC) 20-12.5 mg per tablet 90 tablet 1 Sig: Take 1 tablet by mouth once daily. Authorizing Provider: MO JOHNSTON MD Patient has been identified by name and date of : Yes Last office visit in this department: 05/08/2022 Labs-05/08/22 NOV-09/05/22 RX INSTRUCTIONS: Patient aware RX will be sent to pharmacy. No need to notify patient. Patient phones requesting refills as follows: Requested Prescriptions Pending Prescriptions Disp Refills lisinopril-hydroCHLOROthiazide (ZESTORETIC) 20-12.5 mg per tablet 90 tablet 1 Sig: Take 1 tablet by mouth once daily. Please review and advise. Татьяна Gomez Pss documented in this encounter [facility] 07-29-2022 Note Patient Outreach (NE TNAV) -------- JONATHAN MONTANEZ ([id number]) 1960 M Date Time Provider Department 07/29/22 ZOË GARRETT During your visit today, we recorded the following information about you: Zoë Garrett MA 07/29/2022 12:12 PM Signed POPULATION HEALTH NAVIGATION OUTREACH Action/STEPHANIE [facility] Care Gaps 4.09.02 Discuss/Due for: Colorectal Cancer Screening, Dilated Retinal Eye Exam, Future Diabetic Labs - Hgb a1c ordered 07/09/2022 - Urine Albumin ordered 07/09/2022 Follow Up previously scheduled with Delmi Kulkarni PA-C for 09/05/2022 - updated existing appointments notes with health maintenance Outcome: 1st attempt - Left Message 2nd attempt - MyChart message sent Patient Identified by Name and : NO Outreach Outcome/Action Unable to reach patient: Left message MyChart message sent Did you use a PCP flex slot to schedule this appointment? N/A Reason for Outreach Care Gap or Scheduling/Wellness visits Payer: Payor: [place] MEDICARE / Plan: [employer] MEDICARE HMO / Product Type: HMO / Care Gap Reviewed:: Colorectal Cancer Screening Diabetic Eye Exam Reminder: Reminder note to check Health Maintenance for items below Health Maintenance items due: COLORECTAL CANCER SCREENING Never done DILATED RETINAL EXAM due on 05/13/2022 Navigation Signature: Zoë Garrett MA July 29, 2022 11:57 AM Allergies As of Date: 07/29/2022 (No Known Allergies) Date Reviewed: 05/28/2022 Reviewed by: Alisha Alvarenga LPN - Fully Assessed Reason for Visit: Population Health Navigation Outreach [3910] Cmt: zach Care Gaps 4.5.23 Prescriptions as of 07/29/2022 - flash glucose scanning reader (FREESTYLE NELDA 2 READER) Dispense one reader kit. E10.65 Surgical Type I DM. - flash glucose sensor (FREESTYLE NELDA 2 SENSOR) kit Change sensor every 14 days. USE FOR CONTINUOUS GLUCOSE MONITORING. E10.65 surgical type I. - cyanocobalamin (VITAMIN B-12) 1,000 mcg tab Take 1 tablet by mouth once daily. With food - insulin aspart, niacinamide, (FIASP FLEXTOUCH U-100 INSULIN) 100 unit/mL (3 mL) pen Inject 5 units with meals - Insulin [place], Disposable, (BD TONE 2ND GEN PEN NEEDLE) 32 gauge x 5/32 Use to inject insulin 4 time daily. - semaglutide (OZEMPIC) 2 mg/dose (8 mg/3 mL) pen injector Inject 2 mg subcutaneously one time a week. - ayfpem-imzkezmx-ufnyfcn (CREON) 24,000-76,000 -120,000 unit delayed release capsule Take 3 capsules by mouth three times daily with meals. - metoprolol tartrate, short acting, (LOPRESSOR) 25 mg tablet Take 1 tablet by mouth twice daily. - atorvastatin (LIPITOR) 80 mg tablet Take 1 tablet by mouth once daily. - insulin degludec (TRESIBA FLEXTOUCH U-100) 100 unit/mL (3 mL) injection pen Inject 32 Units subcutaneously daily at bedtime. - metFORMIN ER (GLUCOPHAGE XR) 500 mg 24 hr tablet Take 2 tablets by mouth twice daily before meals. - lisinopril-hydroCHLOROthiazide (PRINZIDE,ZESTORETIC) 20-12.5 mg per tablet Take 1 tablet by mouth once daily. - Lancets lancets Test 2 times daily, Insulin Dep? Yes E11.9 DM 2 - blood sugar diagnostic (BLOOD GLUCOSE TEST) test strip Test 2 times daily, Insulin Dep? Yes E11.9 DM 2 - MEDICAL SUPPLY Sig: Abdominal hernia Velcro wrap. # one DX: K43.2 - COMPOUNDED PRESCRIPTION Abdominal hernia Velcro wrap. # one DX: K43.2 - BABY ASPIRIN ORAL Take 81 mg by mouth once daily. Problem List As Of Date 07/29/2022 Noted Resolved Essential hypertension [I10] Mixed hyperlipidemia [E78.2] Pancreatic cancer (HCC) [C25.9] 01/31/2014 Exocrine pancreatic insufficiency (HCC) [K86.81]03/23/2014 Coronary artery disease due to lipid rich plaqu*06/06/2015 Upper back pain on left side [M54.9] 06/06/2015 Cervical pain (neck) [M54.2] 06/06/2015 Colon cancer screening [Z12.11] 03/04/2016 Uncontrolled type 2 diabetes mellitus with hype*09/02/2016 Disorder of prostate [N42.9] 09/09/2016 Medicare annual wellness visit, subsequent [Z00*06/29/2017 Growth of eyelid [D49.2] 12/15/2017 Vitreous floaters of both eyes [H43.393] 12/15/2017 Type 2 diabetes mellitus without retinopathy (H*12/15/2017 GERD without esophagitis [K21.9] 07/05/2018 Stented coronary artery [Z95.5] Diabetic eye exam (HCC) [Z01.00, E11.9] 01/13/2019 Ventral hernia without obstruction or gangrene *06/28/2019 Corns and callus [L84] 06/28/2019 Uncontrolled daytime somnolence [R40.0] 06/28/2019 Witnessed apneic spells [R06.81] 06/28/2019 Medication management [Z79.899] 01/04/2020 Primary insomnia [F51.01] 07/04/2020 Hyperkalemia [E87.5] 01/16/2021 Hyponatremia [E87.1] 01/16/2021 Elevated LFTs [R79.89] 05/11/2022 HERNANDEZ (nonalcoholic steatohepatitis) [K75.81] 05/28/2022 Encounter Status:Closed by ZOË GARRETT on 07/29/22 [facility] 07-29-2022 Note HNO ID: [id number] Author: Zoë Garrett MA Service: ? Author Type: Spray Drier Operator Helper Type: Progress Notes Filed: 07/29/2022 12:12 PM Note Text: POPULATION HEALTH NAVIGATION OUTREACH Action/I [facility] Care Gaps 4.09.02 Discuss/Due for: Colorectal Cancer Screening, Dilated Retinal Eye Exam, Future Diabetic Labs - Hgb a1c ordered 07/09/2022 - Urine Albumin ordered 07/09/2022 Follow Up previously scheduled with Delmi Kulkarni PA-C for 09/05/2022 - updated existing appointments notes with health maintenance Outcome: 1st attempt - Left Message 2nd attempt - MyChart message sent Patient Identified by Name and : NO Outreach Outcome/Action Unable to reach patient: Left message MyChart message sent Did you use a PCP flex slot to schedule this appointment? N/A Reason for Outreach Care Gap or Scheduling/Wellness visits Payer: Payor: [employer] MEDICARE / Plan: A[employer] MEDICARE HMO / Product Type: HMO / Care Gap Reviewed:: Colorectal Cancer Screening Diabetic Eye Exam Reminder: Reminder note to check Health Maintenance for items below Health Maintenance items due: COLORECTAL CANCER SCREENING Never done DILATED RETINAL EXAM due on 05/13/2022 Navigation Signature: Zoë Garrett MA July 29, 2022 11:57 AM [facility] 06-20-2022 History of Present illness Narrative POPULATION HEALTH NAVIGATION OUTREACH Action/FYI Patient due for Colonoscopy, ROLAN Left message and sent Mychart Patient Identified by Name and : NO Outreach Outcome/Action Unable to reach patient: Left message MyChart message sent Did you use a PCP flex slot to schedule this appointment? N/A Reason for Outreach Care Gap or Scheduling/Wellness visits Payer: Payor: [employer]ARE / Plan: [employer] MEDICARE HMO / Product Type: HMO / Care Gap Reviewed:: Colorectal Cancer Screening Diabetic Eye Exam Reminder: Reminder note to check Health Maintenance for items below Health Maintenance items due: COLORECTAL CANCER SCREENING Never done DILATED RETINAL EXAM due on 05/13/2022 Navigation Signature: Michel Turner June 20, 2022 12:49 PM documented in this encounter [facility] 06-12-2022 Miscellaneous Notes Recall letter in Epic. Spoke with patient. Patient unable to schedule now and will call back to schedule. When patient calls, please schedule CT Abd/Pel, CXR and CBC/CMP/CA19-9 in early April 2023 with an EST SIMPLE with Jessica 2-3 days afterwards. Once scheduled, document and close this note. Madisyn Bello Orders in. Sorry about that. Jessica Good APRN.CNP Please file orders for CXR and CT ABD/PEL for patient for scheduling in 1 year with CBC/CMP/CA19-9/1 YR OV. Madisyn Bello documented in this encounter [facility] 06-04-2022 History of Present illness Narrative DIABETES CARE AND EDUCATION VISIT Location: [place] Type of visit: In person individual PATIENT'S MAIN CONCERN TODAY: I don't know, they made the appointment for me Support person present for education today: none Cognitive ability: Alert and oriented Motivation to learn: Disinterested - limited engagement with prompting questions etc Learning barriers identified by educator: none Method of instruction: written, verbal, and demonstration DIABETES FINDINGS: Monitoring: states he is running in the 300s and 400s, not checking at this time. Reports that pharmacy told him the Nelda was not covered and it would be $560 per sensor - Meal Planning: reviewed basic carbs and carbohydrate containing foods Medications: pt states they are currently taking whatever it is that my gives me , when asked what he was receiving dosewise he stated he really didn't know and just let her do it to him Problem Solving: hyper/hypo and sick day reviewed Physical Activity: encouraged walking Reducing Risks: benefit of control to avoid risks Healthy Coping: not discussed HANDOUTS: Healthy You: Survival Skills and Healthy You: Planning Healthy Meals LEARNING RESPONSE: Very limited engagement at this time, one or two work answered to questions POSSIBLE FUTURE TOPICS: 1. Medications and CGM when we find what is covered for him DIABETES CARE AND EDUCATION PLAN: Individual follow-up Time Spent (Minutes): 35 This visit note will be communicated to the healthcare provider via access to shared medical record. SIGNATURE: Christian Cali RN PATIENT NAME: Jonathan Montanez DATE: June 04, 2022 TIME: 10:26 AM PAGER: documented in this encounter [facility] 05-28-2022 Miscellaneous Notes TC to patient who verbalized understanding and has no questions at this time. AMBROSIO Wills Let Scoot know the US of the liver does show fat infiltration. Over the years this can lead to scaring and cirrhosis of the liver and then failure. Losing weight can be very beneficial and reverse the changes. this is the reasoning for the elevation of his liver functions. documented in this encounter [facility] 05-28-2022 History of Present illness Narrative NEW CONSULT OFFICE PROGRESS NOTE Reason for Consultation: diabetes mellitus secondary to pancreatectomy Referring Physician: SELF My final recommendations will be communicated back to the requesting physician by way of shared Medical record or letter via US mail. HISTORY OF PRESENT ILLNESS; Jonathan Montanez is a 61 year old MALE is presenting as a new patient to [facility] regarding diabetes mellitus secondary to pancreatectomy. Below copied from 04/16/2022 note hem/onc Chief Complaint Patient presents with: Established Patient HPI: Jonathan Montanez is a 61 year old male who presents here today for follow up pancreas cancer. Per Dr. Skaggs's previous note: H/o HTN and CAD (ME 2010; treated with PCI with stent x2) who developed painless jaundice. CT revealed dilatation of both the biliary tree and pancreatic ductal system. ERCP showed a distal obstruction and a stent was placed. [facility] 01/23/2014 which showed a 3.3 cm lesion with encroachment upon the portal vein. The FNA results revealed adenocarcinoma. Underwent diagnostic laparoscopy, laparoscopic liver biopsy (Segment IV) and classic pancreaticoduodenectomy 03/22/2014. Pathology: 1. Liver, biopsy (A) - Benign von Meyenberg complexes. - No evidence of malignancy. 2. Duodenal wall, biopsy (B) - Fibroadipose tissue with acute and chronic inflammation. - No evidence of malignancy. 3. Bile duct margin, excision (C) - Negative for dysplasia or malignancy. 4. Pancreatic neck margin, excision (D) - Positive for carcinoma. 5. Whipple with gallbladder, pancreaticoduodenectomy with cholecystectomy (E) - Invasive well-differentiated adenocarcinoma of the pancreas. - See synoptic report. - Gallbladder with chronic cholecystitis, cholesterolosis and acute fibrinous serositis. 6. Pancreatic neck, new margin, excision (F) - Positive for carcinoma with perineural invasion. 7. Extended pancreatic neck, excision (G) - Invasive adenocarcinoma. 8. SMA margin, excision (H) - SMA and portal veins margins free of tumor. 9. Newest pancreatic margin, excision (I) - Negative for tumor. 10. Pancreatic body, excision (J) - Negative for tumor. He was initially diagnosed with diabetes in 2017. Poorly controlled for some time He does not have a family history of diabetes mellitus in his family . The patient has no known microvascular complications of diabetes. Jonathan has no know macrovascular complications of diabetes.. DM Education No Knows how to carb count No DIETARY HISTORY: Breakfast: pop tart and fruit (grapefruit) milk Lunch leftovers from dinner Dinner protein/veggie/starch - intermittently eats out Snacks yogurt Drinks milk, water, unsweetened tea, gatorade zero Exercise: walking CURRENT DM MEDS TRESIBA 32 units METFORMIN 500 2 tab BID OZMPEIC 2 mg SMBG Type of Monitor: Other Frequency of Monitoring: HAD NOT BEEN CHECKING times a day BG Values: Breakfast: Lunch: Dinner: Bed-time: Values over past week: Highest ; Lowest Hypoglycemia: no Diet: No specific diet regimen Exercise: none DM REVIEW OF SYSTEMS Last Eye Exam : needs schedule Last Podiatry Exam: no problems Cardiorespiratory: negative, denies chest pain, pressure Claudication: no Dyslipidemia: Yes, controlled on medication High Blood Pressure: Yes, controlled on medication CURRENT LABS Component Latest Ref Rng & Units 05/08/2022 Glucose 74 - 99 mg/dL 336 (H) BUN 9 - 24 mg/dL 11 Creatinine 0.73 - 1.22 mg/dL 0.83 Sodium 136 - 144 mmol/L 132 (L) Potassium 3.7 - 5.1 mmol/L 5.3 (H) Chloride 97 - 105 mmol/L 98 CO2 22 - 30 mmol/L 24 Anion Gap 9 - 18 mmol/L 10 eGFR >=60 mL/min/1.73m 101 Hemoglobin A1C 4.3 - 5.6 % 10.2 (H) Estimated Average Glucose mg/dL 246 PAST MEDICAL HISTORY Diagnosis Date Cervical pain (neck) 06/06/2015 Corns and callus 06/28/2019 Coronary artery disease due to lipid rich plaque 06/06/2015 Diabetic eye exam (HCC) 01/13/2019 Last done: 01/13/2019 Essential hypertension Exocrine pancreatic insufficiency 03/23/2014 GERD without esophagitis 07/05/2018 Growth of eyelid 12/15/2017 Incisional hernia, without obstruction or gangrene 06/29/2017 Medicare annual wellness visit, subsequent 06/29/2017 Medicare Part B: 08/11/2016 last done: 05/08/2022 Mixed hyperlipidemia Pancreatic cancer (HCC) Primary insomnia 07/04/2020 Stented coronary artery Mid LAD REJI,proximal-mid RCA stent Type 2 diabetes mellitus without retinopathy (HCC) 12/15/2017 Uncontrolled type 2 diabetes mellitus without complication, without long-term current use of insulin 09/02/2016 Upper back pain on left side 06/06/2015 Ventral hernia without obstruction or gangrene 06/28/2019 Vitreous floaters of both eyes 12/15/2017 PAST SURGICAL HISTORY Procedure Laterality Date ENDOSCOPIC ULTRASOUND W/FNA_*FL 01/23/2014 ERCP DX COLLECTION SPECIMEN BRUSHING/WASHING 01/17/14 Cholangiopancreatography (ERCP) [facility] [place] inpt ESOPHAGOGASTRODUODENOSCOPY TRANSORAL DIAGNOSTIC 09/12/15 EGD (mac) PAST SURGICAL HISTORY OF 2 coranary stents PAST SURGICAL HISTORY OF 02/20/2014 Whipple procedure FAMILY HISTORY Problem Relation Age of Onset Hypertension Mother Breast Cancer Sister Diabetes Brother other (COVID) Brother Social History Tobacco Use Smoking status: Never Smokeless tobacco: Never Vaping Use Vaping Use: Never used Substance Use Topics Alcohol use: Yes Comment: 2-3 beers daily, occasional shot of crown Drug use: No Current Outpatient Medications Medication Sig kkxyjt-idclmyke-kmqdtik (CREON) 24,000-76,000 -120,000 unit delayed release capsule Take 3 capsules by mouth three times daily with meals. metoprolol tartrate, short acting, (LOPRESSOR) 25 mg tablet Take 1 tablet by mouth twice daily. atorvastatin (LIPITOR) 80 mg tablet Take 1 tablet by mouth once daily. insulin degludec (TRESIBA FLEXTOUCH U-100) 100 unit/mL (3 mL) injection pen Inject 32 Units subcutaneously daily at bedtime. metFORMIN ER (GLUCOPHAGE XR) 500 mg 24 hr tablet Take 2 tablets by mouth twice daily before meals. semaglutide (OZEMPIC) 2 mg/dose (8 mg/3 mL) pen injector Inject 2 mg subcutaneously one time a week. lisinopril-hydroCHLOROthiazide (PRINZIDE,ZESTORETIC) 20-12.5 mg per tablet Take 1 tablet by mouth once daily. dulaglutide (TRULICITY) 4.5 mg/0.5 mL pen injector Inject 4.5 mg subcutaneously one time a week. glimepiride (AMARYL) 4 mg tablet Take 1 tablet by mouth daily with breakfast. Lancets lancets Test 2 times daily, Insulin Dep? Yes E11.9 DM 2 blood sugar diagnostic (BLOOD GLUCOSE TEST) test strip Test 2 times daily, Insulin Dep? Yes E11.9 DM 2 Insulin [place], Disposable, (BD TONE 2ND GEN PEN NEEDLE) 32 gauge x 5/32 Use to inject insulin once daily MEDICAL SUPPLY Sig: Abdominal hernia Velcro wrap. # one DX: K43.2 COMPOUNDED PRESCRIPTION Abdominal hernia Velcro wrap. # one DX: K43.2 BABY ASPIRIN ORAL Take 81 mg by mouth once daily. No current facility-administered medications for this visit. ALLERGIES No Known Allergies REVIEW OF SYSTEMS - POSITIVES IN BOLD GENERAL:No weight loss, malaise or fevers HEENT:Negative for frequent or significant headaches, No changes in hearing or vision, no nose bleeds or other nasal problems NECK:Negative for lumps, goiter, pain and significant neck swelling RESPIRATORY: Negative for cough, hemoptysis, wheezing, COPD, dyspnea or shortness of breath CARDIOVASCULAR: Negative for chest pain, leg swelling, hypertension, CHF or palpitations PHYSICAL EXAMINATION: BP (P) 113/86 (BP Site: Left Arm, BP Position: Sitting, BP Cuff Size: Large Adult) Pulse (P) 88 Wt (P) 92.5 kg (204 lb) BMI (P) 33.69 kg/m General appearance: Well appearing, alert, in no acute distress, well-hydrated, well nourished. 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 Discussed will be treated as surgical TYPE I DM Insulin dependent STOP AMARYL. CONT TRESIBA CONT w METFORMIN Can continue OZEMPIC at this time, will likely dc in the future START MEAL INSULIN 5 units with meals STRONGLY RECOMMEND CGM for monitoring as patient will need to cover all carbs eaten w meal RECOMMEND DM education for carb counting, insulin to carb ratio instruction PATIENT will use CGM for blood sugar monitoring No changes to basal dosing today as patient was not checking his blood sugars. ADD B12 1000 mcg 1 tab daily supplementation due to metformin use SCHEDULED w Robert for CDE next week. F/U ENDO 3 months Recommended diet: Low carbohydrate and Low saturated fat, low simple sugar, high fiber diet Exercise minimally 150 minutes per week, increase as tolerated. Adequate hydration - 1/2 body wgt in oz of water daily, unless fluid restriction applies. I instructed the patient to monitor blood sugars 4 times per day If blood sugars are persistently high or low, to call our office. Patient to continue to follow up with his PCP and with other consultants regarding his other medical problems. Plan: COMP METABOLIC PANEL, LIPID PANEL, NONFASTING, ALBUMIN/CREAT RATIO RND UR, HGB A1C, CONSULT TO ENDOCRINOLOGY, CONSULT TO DIABETES EDUCATION Jasmin Dunham CNP documented in this encounter [facility] 05-23-2022 Miscellaneous Notes Patient has been identified by name and date of : Yes Requested Prescriptions Pending Prescriptions Disp Refills semaglutide (OZEMPIC) 2 mg/dose (8 mg/3 mL) pen injector 5 Sig: Inject 2 mg subcutaneously one time a week. RX INSTRUCTIONS: Patient aware RX will be sent to pharmacy. No need to notify patient. Socorro Bustillo MA Marco: 04/2022 Nov: 08/2022 Last refill; 03/2022 Patient has been identified by name and date of : Yes Requested Prescriptions Pending Prescriptions Disp Refills semaglutide (OZEMPIC) 2 mg/dose (8 mg/3 mL) pen injector 5 Sig: Inject 2 mg subcutaneously one time a week. RX INSTRUCTIONS: Patient stated the Pharmacy told him he has no more refills. Patient aware RX will be sent to pharmacy. No need to notify patient. Osiris Collins Pss documented in this encounter [facility] 05-23-2022 History of Present illness Narrative Radiology Service Progress Note PATIENT NAME: Jonathan Montanez DATE OF SERVICE: May 23, 2022 TIME: 9:15 AM PATIENT IDENTITY VERIFICATION COMPLETED USING TWO (2) IDENTIFIERS: Name and Date of confirmed by patient verbally. FALL SCREENING: Has the patient had 2 falls in the last year or 1 fall with injury or currently using an Ambulatory Assistive Device (Walker, Cane, Wheelchair, Crutches, etc.)? No PATIENT GENDER DATA: Male PATIENT RELEVANT IMPLANT DATA REVIEWED: Not Applicable RADIOLOGY DEPARTMENT: Ultrasound PERIPHERAL IV DATA: Not applicable SIGNED BY: Elva Tobar RDMS May 23, 2022 9:15 AM documented in this encounter [facility] 05-19-2022 Miscellaneous Notes Patient is scheduled for US, and endo. He is going to do a walk in for his labs. LORIE Allred May 19, 2022 2:16 PM 2nd attempt: LVM for patient to schedule US, labs, and endo appointments. Summary: Consults 1st Attempt: Called PT to schedule US, consult to endo, and lab work, LVM for PT to call back and ask for a nursing scheduler. Thanks, LORIE De La Cruz Spoke with and gave instructions. Please contact patient to schedule appointments. Socorro Bustillo MA Let patient know his blood count, lipids, UA, kidney functions and prostate test were all ok. His sodium is still low and his potassium is still high. His A1c is still high at 10.2 but improved from previous at 11.4. Back in 01/2021 I wanted him to see endo to assist with his diabetes and eval of the low sodium and high potassium. It appears an appt was never set up. New order placed. Please give patient number he needs to call sice if they call him and he does not recognize the number he will not answer and also seems he does not return calls. Liver functions are still elevated but slightly lower. Orders placed to check a hepatitis panel and US of the liver. documented in this encounter [facility] 05-08-2022 Instructions Mo Johnston MD - 05/08/2022 9:07 AM EST If you want a tetanus booster go to the health dept and ask for a Tdap Consider getting the shingrix vaccine for the prevention of shingles from a local pharmacy documented in this encounter [facility] 05-08-2022 History of Present illness Narrative Medicare Yearly Visit Medical B eligibilty date 08/11/2016 Date of last exam 01/08/2021 PAST MEDICAL HISTORY PAST MEDICAL HISTORY Diagnosis Date CAD (coronary artery disease) Sees Dr. Zain ART 2010, 2 stents Exocrine pancreatic insufficiency 03/23/2014 HTN (hypertension) Hyperlipidemia Pancreatic cancer (HCC) Stented coronary artery Mid LAD REJI,proximal-mid RCA stent PAST SURGICAL HISTORY PAST SURGICAL HISTORY Procedure Laterality Date EGD W/O OR W/BRUSH/WASH 09/12/15 EGD (mac) ENDOSCOPIC ULTRASOUND W/FNA_*FL 01/23/2014 ERCP W/O BRUSH/WASH SPECIMEN 01/17/14 Cholangiopancreatography (ERCP) [facility] [place] in PAST SURGICAL HISTORY OF 2 coranary stents PAST SURGICAL HISTORY OF 02/20/2014 Whipple procedure Review of patient's allergies indicates no known allergies. Medications reviewed: Yes FAMILY HISTORY FAMILY HISTORY Problem Relation Age of Onset Hypertension Mother Breast Cancer Sister SOCIAL HISTORY: SOCIAL HISTORY Social History Marital status: Spouse name: Years of education: Number of children: Social History Main Topics Smoking status: Never Smoker Smokeless status: Never Used Alcohol use: Yes Comment: 2-3 beers daily, occasional shot of crown Drug use: No Jonathan works out regularly 7 times per week with walking. He watches his diet for sodium, low fat and low cholesterol most of the time. List of current specialists seen: Seeing oncology optho End of Live Planning discussed including patients advanced directive wishes: Yes I am willing to follow Jonathan's advanced directives. Depression screen Depression Screening 06/23/2018 09/29/2019 04/01/2021 05/08/2022 PHQ-2 Score 0 3 0 0 PHQ-9 Score - 3 - - Depression screening tool completed and reviewed. Based on score and interview, patient is not at risk for depression. Screening tool discussed with patient, and I recommended no further intervention at this time. Functional Ability/Safety Screen 1. Was the patient's timed Up and Go test unsteady or longer than 30 seconds? No 2. Does the patient need help with the phone, transportation, shopping,preparing meals, housework, laundry, medications or managing money? No 3. Does your home have rugs in the hallway, lack of grab bars in the bathroom, lack of handrails on the stairs or have poor lighting? No Hearing Evaluation: hard of hearing PHYSICAL EXAM BP 134/78 (BP Site: Right Arm, BP Position: Sitting, BP Cuff Size: Regular Adult) Pulse 84 Resp 16 Ht 165.7 cm (5' 5.25 ) Wt 91.2 kg (201 lb) BMI 33.19 kg/m Alert and oriented X 3: YES See below ASSESSMENT/PLAN: 60 year old male The following prevention plan was discussed during the office visit and provided to the patient: See below Mo Johnston MD Chief Complaint Patient presents with: Physical HPI Jonathan Montanez is a 61 year old male who presents here today for Physical. Patient with hx of HTN, Hyperlipidemia, DM 2, pancreatic cancer seeing oncology, CAD, GERD, pancreatic insufficiency, insomnia, ventral hernia as well as those reviewed and addressed below and in ROS. Patient has been doing ok. No new issues or concerns. Has moved to a new home. Past medical history, appointments, medications, allergies reviewed. Previous Medical History PAST MEDICAL HISTORY Diagnosis Date Cervical pain (neck) 06/06/2015 Corns and callus 06/28/2019 Coronary artery disease due to lipid rich plaque 06/06/2015 Current use of proton pump inhibitor 07/05/2018 Diabetic eye exam (HCC) 01/13/2019 Last done: 01/13/2019 Essential hypertension Exocrine pancreatic insufficiency 03/23/2014 GERD without esophagitis 07/05/2018 Growth of eyelid 12/15/2017 Incisional hernia, without obstruction or gangrene 06/29/2017 Medicare annual wellness visit, initial 06/29/2017 Medicare Part B: 08/11/2016 last done: 12/28/2018 Medicare annual wellness visit, initial 06/29/2017 Medicare Part B: 08/11/2016 last done: 01/04/2020 Mixed hyperlipidemia Pancreatic cancer (HCC) Primary insomnia 07/04/2020 Stented coronary artery Mid LAD REJI,proximal-mid RCA stent Type 2 diabetes mellitus without retinopathy (HCC) 12/15/2017 Uncontrolled type 2 diabetes mellitus without complication, without long-term current use of insulin 09/02/2016 Upper back pain on left side 06/06/2015 Ventral hernia without obstruction or gangrene 06/28/2019 Vitreous floaters of both eyes 12/15/2017 Previous Surgical History PAST SURGICAL HISTORY Procedure Laterality Date ENDOSCOPIC ULTRASOUND W/FNA_*FL 01/23/2014 ERCP DX COLLECTION SPECIMEN BRUSHING/WASHING 01/17/14 Cholangiopancreatography (ERCP) [facility] inpt ESOPHAGOGASTRODUODENOSCOPY TRANSORAL DIAGNOSTIC 09/12/15 EGD ([facility] [place]) PAST SURGICAL HISTORY OF 2 coranary stents PAST SURGICAL HISTORY OF 02/20/2014 Whipple procedure Family History FAMILY HISTORY Problem Relation Age of Onset Hypertension Mother Breast Cancer Sister Diabetes Brother other (COVID) Brother Patient Allergies ALLERGIES No Known Allergies Current Medications Current Outpatient Medications on File Prior to Visit Medication Sig atorvastatin (LIPITOR) 80 mg tablet Take 1 tablet by mouth once daily. insulin degludec (TRESIBA FLEXTOUCH U-100) 100 unit/mL (3 mL) injection pen Inject 32 Units subcutaneously daily at bedtime. metFORMIN ER (GLUCOPHAGE XR) 500 mg 24 hr tablet Take 2 tablets by mouth twice daily before meals. semaglutide (OZEMPIC) 2 mg/dose (8 mg/3 mL) pen injector Inject 2 mg subcutaneously one time a week. lisinopril-hydroCHLOROthiazide (PRINZIDE,ZESTORETIC) 20-12.5 mg per tablet Take 1 tablet by mouth once daily. dulaglutide (TRULICITY) 4.5 mg/0.5 mL pen injector Inject 4.5 mg subcutaneously one time a week. glimepiride (AMARYL) 4 mg tablet Take 1 tablet by mouth daily with breakfast. rasbrj-rrmmmiin-logeslo (CREON) 24,000-76,000 -120,000 unit delayed release capsule Take 3 capsules by mouth three times daily with meals. metoprolol tartrate, short acting, (LOPRESSOR) 25 mg tablet Take 1 tablet by mouth twice daily. ammonium lactate (ANGELA-HYDROLAC) 12 % lotion Apply to affected area as needed for Dry Skin (of feet). Lancets lancets Test 2 times daily, Insulin Dep? Yes E11.9 DM 2 blood sugar diagnostic (BLOOD GLUCOSE TEST) test strip Test 2 times daily, Insulin Dep? Yes E11.9 DM 2 Insulin [place], Disposable, (BD TONE 2ND GEN PEN NEEDLE) 32 gauge x /32 Use to inject insulin once daily MEDICAL SUPPLY Sig: Abdominal hernia Velcro wrap. # one DX: K43.2 COMPOUNDED PRESCRIPTION Abdominal hernia Velcro wrap. # one DX: K43.2 BABY ASPIRIN ORAL Take 81 mg by mouth once daily. No current facility-administered medications on file prior to visit. Social History Social History Tobacco Use Smoking status: Never Smokeless tobacco: Never Vaping Use Vaping Use: Never used Substance Use Topics Alcohol use: Yes Comment: 2-3 beers daily, occasional shot of crown Drug use: No Review of Symptoms REVIEW OF SYSTEMS GENERAL: No unintentional weight loss, malaise or fevers HEENT: Negative for frequent or significant headaches, No changes in hearing or vision, no nose bleeds or other nasal problems NECK: Negative for lumps, goiter, pain and significant neck swelling RESPIRATORY: Negative for cough, hemoptysis, wheezing, COPD, dyspnea or shortness of breath CARDIOVASCULAR: Negative for chest pain, leg swelling, hypertension, CHF or palpitations GI: No nausea, vomiting, or diarrhea, No heartburn or reflux symptoms, and no blood : No history of dysuria, blood MUSCULOSKELETAL: Negative for joint pain or swelling, back pain or muscle pain SKIN: Negative for lesions, rash, and itching PSYCH: Negative for sleep disturbance, mood disorder and recent psychosocial stressors HEMATOLOGY/LYMPHOLOGY: Negative for prolonged bleeding, bruising easily or swollen nodes ENDOCRINE: Negative for cold or heat intolerance, polyuria, polydipsia and goiter NEURO: No history of headaches, syncope, paralysis, seizures or tremors EXAM: BP 134/78 (BP Site: Right Arm, BP Position: Sitting, BP Cuff Size: Regular Adult) Pulse 84 Resp 16 Ht 165.7 cm (5' 5.25 ) Wt 91.2 kg (201 lb) BMI 33.19 kg/m Last 4 Encounter Wt Readings: Date: Wt: 05/08/2022 91.2 kg (201 lb) 04/16/2022 93.4 kg (206 lb) 08/26/2021 87.1 kg (192 lb) 05/10/2021 83.5 kg (184 lb) General Appearance: Well appearing, alert, in no acute distress, well-hydrated, well nourished. and Obese. Skin: Skin color, texture, turgor normal, no suspicious rashes or lesions. Head: Normocephalic, no masses, lesions, tenderness or abnormalities. Eyes: Anicteric sclera. Pupils are equally round and reactive to light. Extraocular movements are intact. . Ears: External ears normal, canals clear. Neck: Supple, no adenopathy; thyroid symmetric, normal size, no bruits. Lungs: Lungs clear to auscultation. No wheezing, rhonchi, rales.. Heart: RRR without murmur, gallop, or rubs. No ectopy. Abdomen: Normal abdominal exam, Abdomen soft, non-tender. Bowel sounds normal. No masses, organomegaly. Extremities: No deformities, edema, skin discoloration, Good capillary refill. Has cyanosis of the distal aspect of each great toe.. Musculoskeletal: Muscular strength intact, No joint swelling, deformity, or tenderness. Peripheral Pulses: Normal, but diminished at the feet bilaterally. Neurologic: Gait normal. Reflexes normal and symmetric. Sensation to light touch sand crainal nerves 2-21 intact.. Genitalia: Normal, Penis normal. No urethral discharge. Scrotum normal to palpation. No hernia.. Rectal: Normal exam. Prostate enlarged but smooth firm capsule. Health Maintenance List DTAP,TDAP,TD(1 - Tdap) Never done COLORECTAL CANCER SCREENING Never done SHINGRIX VACCINE(1 of 2) Never done BP CONTROLLED (<130/80) due on 07/04/2021 HBA1C due on 11/26/2021 URINE ALBUMIN:CREATININE RATIO due on 01/08/2022 DIABETIC FOOT EXAM due on 01/08/2022 DEPRESSION ASSESSMENT Never done LDL CHOLESTEROL due on 05/10/2022 DILATED RETINAL EXAM due on 05/13/2022 ANNUAL PCP TEAM CHRONIC DISEASE VISIT due on 08/26/2022 PROSTATE CANCER SCREENING DISCUSSION due on 01/08/2026 PNEUMOCOCCAL(3 - PPSV23 if available, else PCV20) due on 11/22/2027 INFLUENZA Completed HEPATITIS C SCREENING Completed COVID-19 VACCINE Completed HIV SCREENING Discontinued Data reviewed Component Latest Ref Rng & Units 05/10/2021 08/26/2021 Glucose 74 - 99 mg/dL 239 (H) BUN 9 - 24 mg/dL 12 Creatinine 0.73 - 1.22 mg/dL 0.76 Sodium 136 - 144 mmol/L 134 (L) Potassium 3.7 - 5.1 mmol/L 5.1 Chloride 97 - 105 mmol/L 101 CO2 22 - 30 mmol/L 25 Anion Gap 9 - 18 mmol/L 8 (L) Calcium 8.5 - 10.2 mg/dL 9.6 eGFR >=60 mL/min/1.73m 104 Total Cholesterol, Nonfasting <200 mg/dL 114 Triglycerides, Nonfasting <150 mg/dL 104 HDL Cholesterol, Nonfasting >39 mg/dL 55 LDL Cholesterol, Nonfasting <100 mg/dL 38 Non HDL Cholesterol, Nonfasting <130 mg/dL 59 VLDL Cholesterol, Nonfasting <30 mg/dL 21 Total Chol/HDL Ratio, Nonfasting <5.10 mg/dL 2.07 LDL/HDL Ratio, Nonfasting <2.54 mg/dL 0.69 Hemoglobin A1C 4.3 - 5.6 % 13.7 (H) 11.4 (H) Estimated Average Glucose mg/dL 346 280 A/P ASSESSMENT/PLAN: 1. Medicare annual wellness visit, subsequent - ICD9: V70.0, ICD10: Z00.00 (primary diagnosis) - Counseled on healthy diet and regular exercise - Discussed need for and benefit of weight loss. BMI 33.19 kg/(m^2) - Follow up for annual exam in one year - discussed getting Tdap and shingrix vaccines. 2. Uncontrolled type 2 diabetes mellitus with hyperglycemia (HCC) - ICD9: 250.02, ICD10: E11.65 - await labs - Continue current medications - Encouraged regular aerobic exercise and weight loss - BP goal of <130/80 - LDL goal of <100 Check - HGB A1C - ALBUMIN/CREAT RATIO RND UR - COMP METABOLIC PANEL - URINALYSIS, WITH MICROSCOPIC - LIPID PANEL, NONFASTING - CBC + DIFF 3. Diabetic eye exam (HCC) - ICD9: V72.0, 250.00, ICD10: Z01.00, E11.9 - up to date 4. Type 2 diabetes mellitus without retinopathy (HCC) - ICD9: 250.00, ICD10: E11.9 As above Check - HGB A1C - ALBUMIN/CREAT RATIO RND UR - COMP METABOLIC PANEL - URINALYSIS, WITH MICROSCOPIC - LIPID PANEL, NONFASTING - CBC + DIFF 5. Essential hypertension - ICD9: 401.9, ICD10: I10 - good control - Continue current medication(s) - Recommended regular aerobic exercise. - Recommend home blood pressure monitoring, to bring results in on next visit - Goal of BP <130/80 - COMP METABOLIC PANEL - URINALYSIS, WITH MICROSCOPIC - LIPID PANEL, NONFASTING 6. Mixed hyperlipidemia - ICD9: 272.2, ICD10: E78.2 - to be determined upon return of lab results - Continue current medication. - Encouraged following a low fat, low cholesterol diet. - Discussed the benefits of regular aerobic exercise and weight loss. - Encouraged following a low carbohydrate, healthy oil intake diet. - COMP METABOLIC PANEL - URINALYSIS, WITH MICROSCOPIC - LIPID PANEL, NONFASTING 7. Coronary artery disease due to lipid rich plaque - ICD9: 414.00, 414.3, ICD10: I25.10, I25.83 - clinically stable no changes. - LIPID PANEL, NONFASTING 8. GERD without esophagitis - ICD9: 530.81, ICD10: K21.9 - controlled with life style changes. 9. Primary insomnia - ICD9: 307.42, ICD10: F51.01 - stable 10. Malignant neoplasm of head of pancreas (HCC) - ICD9: 157.0, ICD10: C25.0 - management per Oncology - CREON 24,000-76,000-120,000 UNIT CAPSULE,DELAYED RELEASE 11. Exocrine pancreatic insufficiency - ICD9: 577.8, ICD10: K86.81 - cont replacement 12. Corns and callus - ICD9: 700, ICD10: L84 - discussed care. 13. Colon cancer screening - ICD9: V76.51, ICD10: Z12.11 - CONSULT TO GENERAL SURGERY 14. Disorder of prostate - ICD9: 602.9, ICD10: N42.9 Check - PSA/PROSTSPECAG DIAG 15. Diminished pulses in lower extremity - ICD9: 785.9, ICD10: R09.89 Check - PVR LEG W/EXC [facility] 16. Toe cyanosis - ICD9: 782.5, ICD10: R23.0 Check - PVR LEG W/EXC [facility] Requested Prescriptions Signed Prescriptions Disp Refills gdznrl-mfmwkhvm-wqxhbcm (CREON) 24,000-76,000 -120,000 unit delayed release capsule 270 capsule 5 Sig: Take 3 capsules by mouth three times daily with meals. metoprolol tartrate, short acting, (LOPRESSOR) 25 mg tablet 180 tablet 1 Sig: Take 1 tablet by mouth twice daily. F/u 4 months routine I spent a total of 40 minutes on the date of the service which included preparing to see the patient, [id number] patient care, completing clinical documentation, performing a medically appropriate examination, counseling and educating the patient/family/caregiver and ordering medications, tests, or procedures. Mo Johnston MD documented in this encounter [facility] 04-17-2022 Miscellaneous Notes Left message on ifdntified voicemail his CA19-9 is stable. If questions to please contact office. Mary Alice Uribe LPN Please inform pt. that his CA19-9 is stable. He does not use his my chart. Thank you. Jessica Good APRN.DEBI documented in this encounter [facility] 04-16-2022 History of Present illness Narrative Chief Complaint Patient presents with: Established Patient HPI: Jonathan Montanez is a 61 year old male who presents here today for follow up pancreas cancer. Per Dr. Skaggs's previous note: H/o HTN and CAD (ME 2010; treated with PCI with stent x2) who developed painless jaundice. CT revealed dilatation of both the biliary tree and pancreatic ductal system. ERCP showed a distal obstruction and a stent was placed. Subsequently referred to the [facility] for an EGD/EUS on 01/23/2014 which showed a 3.3 cm lesion with encroachment upon the portal vein. The FNA results revealed adenocarcinoma. Underwent diagnostic laparoscopy, laparoscopic liver biopsy (Segment IV) and classic pancreaticoduodenectomy 03/22/2014. Pathology: 1. Liver, biopsy (A) - Benign von Meyenberg complexes. - No evidence of malignancy. 2. Duodenal wall, biopsy (B) - Fibroadipose tissue with acute and chronic inflammation. - No evidence of malignancy. 3. Bile duct margin, excision (C) - Negative for dysplasia or malignancy. 4. Pancreatic neck margin, excision (D) - Positive for carcinoma. 5. Whipple with gallbladder, pancreaticoduodenectomy with cholecystectomy (E) - Invasive well-differentiated adenocarcinoma of the pancreas. - See synoptic report. - Gallbladder with chronic cholecystitis, cholesterolosis and acute fibrinous serositis. 6. Pancreatic neck, new margin, excision (F) - Positive for carcinoma with perineural invasion. 7. Extended pancreatic neck, excision (G) - Invasive adenocarcinoma. 8. SMA margin, excision (H) - SMA and portal veins margins free of tumor. 9. Newest pancreatic margin, excision (I) - Negative for tumor. 10. Pancreatic body, excision (J) - Negative for tumor. SYNOPTIC REPORT OF [facility] WHIPPLE WITH GALLBLADDER: Clinical History: Not specified Specimen: Head of pancreas Duodenum Gallbladder Procedure: Pancreaticoduodenectomy (Whipple resection), partial pancreatectomy Tumor Site: Pancreatic head Histologic Type: Ductal adenocarcinoma Histologic Grade: G1: Well differentiated Tumor Size: Greatest dimension: 3.4 cm Additional dimension: 2.7 cm Additional dimension: 2.3 cm Microscopic Tumor Extension: Tumor invades peripancreatic soft tissues Margins: Margins uninvolved by invasive carcinoma Distance of invasive carcinoma from closest margin: 1 mm Specify margin (if possible): SMA margin Treatment Effect: No prior treatment Lymph-Vascular Invasion: Present Perineural Invasion: Present TNM Descriptors: Not applicable Primary Tumor (pT): pT3: Tumor extends beyond the pancreas but without involvement of the celiac axis or the superior mesenteric artery Regional Lymph Nodes (pN): pN1: Regional lymph node metastasis Number of lymph nodes examined: 51 Number of lymph nodes involved: 7 Distant Metastasis (pM): Not applicable Pt. was noted to have an elevation in CA19-[address]'s Neg. No new symptoms. Repeat CA19-9 elevated. CA19-9 has since normalized. Blood sugars also under better control now. No new concerns today. Appetite: Great. Energy level: Good. Denies fevers. Resp:denies cough or sob Cardiac:denies chest pain/palpitations GI:denies abd pain, n/v, moving bowels regularly :denies dysuria/hematuria Extrem:denies pain Neuro:denies symptoms of neuropathy Skin:denies rashes/lesions Heme:denies bleeding The ROS is otherwise negative. Past medical history, appointments, medications, allergies reviewed. No changes. EXAM: BP 134/94 Pulse 74 Temp 36.2 C (97.1 F) (Temporal) Ht 166.4 cm (5' 5.5 ) Wt 93.4 kg (206 lb) SpO2 97% BMI 33.76 kg/m APPEARANCE Well appearing, alert, in no acute distress, well-hydrated, well nourished. HEART RRR with normal S1 and S2, no murmurs LUNG clear to auscultation LYMPH NODES No cervical lymphadenopathy, No supraclavicular lymphadenopathy, and No axillary lymphadenopathy. ABDOMEN bowel sounds normoactive, soft, non-tender, L sided ventral hernia-NT EXTREMITIES No edema NEURO Awake, alert and oriented x 3, Normal gait, and No involuntary motions. SKIN Skin color, texture, turgor normal, no suspicious rashes or lesions LABS: Component Latest Ref Rng & Units 03/29/2021 04/16/2022 WBC 3.70 - 11.00 k/uL 7.58 7.08 RBC 4.20 - 6.00 m/uL 4.59 4.72 Hemoglobin 13.0 - 17.0 g/dL 14.0 14.4 Hematocrit 39.0 - 51.0 % 42.2 43.1 MCV 80.0 - 100.0 fL 91.9 91.3 MCH 26.0 - 34.0 pg 30.5 30.5 MCHC 30.5 - 36.0 g/dL 33.2 33.4 RDW-CV 11.5 - 15.0 % 12.4 12.7 Platelet Count 150 - 400 k/uL 290 298 MPV 9.0 - 12.7 fL 9.9 9.6 Neut% % 60.9 59.5 Abs Neut (ANC) 1.45 - 7.50 k/uL 4.60 4.21 Lymph% % 22.6 22.0 Abs Lymph 1.00 - 4.00 k/uL 1.71 1.56 Dawes% % 12.8 12.0 Abs Dawes <0.87 k/uL 0.97 (H) 0.85 Eosin% % 2.6 5.5 Abs Eosin <0.46 k/uL 0.20 0.39 Baso% % 1.1 0.7 Abs Baso <0.11 k/uL 0.08 0.05 Immature Gran % % 0.3 IMMATURE GRANS (ABS) <0.10 k/uL <0.03 NRBC /100 WBC 0.0 Absolute nRBC <0.01 k/uL <0.01 <0.01 DTYPE Auto Nucleated Reds 0 /100 WBC 0.0 Diff Type Auto Diff Component Latest Ref Rng & Units 03/29/2021 04/16/2022 Protein, Total 6.3 - 8.0 g/dL 6.6 6.4 Albumin 3.9 - 4.9 g/dL 4.1 3.9 Calcium 8.5 - 10.2 mg/dL 9.3 9.3 Bilirubin, Total 0.2 - 1.3 mg/dL 0.6 0.6 Alkaline Phosphatase 38 - 113 U/L 54 57 AST 14 - 40 U/L 30 46 (H) Glucose 74 - 99 mg/dL 320 (H) 330 (H) BUN 9 - 24 mg/dL 11 14 Creatinine 0.73 - 1.22 mg/dL 0.75 0.83 Sodium 136 - 144 mmol/L 132 (L) 132 (L) Potassium 3.7 - 5.1 mmol/L 4.6 4.9 Chloride 97 - 105 mmol/L 98 100 CO2 22 - 30 mmol/L 24 26 Anion Gap 9 - 18 mmol/L 10 6 (L) ALT 10 - 54 U/L 41 58 (H) eGFR- >60 eGFR-All Other Races . >60 eGFR >=60 mL/min/1.73m 101 CA19-9: Pending RADIOLOGY: CT abd/pelvis 04/10/22: IMPRESSION: Postoperative changes from a Whipple procedure. No new mass or lymphadenopathy. CXR 04/10/22: IMPRESSION: Findings as described above. ASSESSMENT/PLAN: 1. Malignant neoplasm of head of pancreas (HCC) - ICD9: 157.0, ICD10: C25.0 (primary diagnosis) pT3 pN1 adenocarcinoma of the pancreas. Underwent diagnostic laparoscopy, laparoscopic liver biopsy (Segment IV) and classic pancreaticoduodenectomy 03/22/2014. 2. Examination of participant in clinical trial - ICD9: V70.7, ICD10: Z00.6 - No concerning findings on exam. - ECOG 0 - Pt. now 8 years out from surgery. - Reviewed labs and CXR/CT abd/pelvis with pt. - CA19-9 pending. - CA19-9 in 6 months. - Follow up in one year with CBC/CMP/CA19-9/CXR/CT abd/pelvis-pending above. - Pt. aware to call office with any questions/concerns. The patient indicates understanding of these issues and agrees with the plan. All documentation from previous visit of 04/01/21-Dr. Skaggs/myself was copied and pasted, documentation has been reviewed and edited as necessary for today's visit. Jessica Good APRN.DEBI documented in this encounter [facility] 04-10-2022 History of Present illness Narrative Radiology Service Progress Note DATE OF SERVICE: April 10, 2022 TIME: 2:02 PM PATIENT IDENTITY VERIFICATION COMPLETED USING TWO (2) STANDARD IDENTIFIERS: Name and Date of confirmed by patient verbally. FALL SCREENING: Has the patient had 2 falls in the last year or 1 fall with injury or currently using an Ambulatory Assistive Device (Walker, Cane, Wheelchair, Crutches, etc.)? No PATIENT GENDER DATA: Male PATIENT RELEVANT IMPLANT DATA REVIEWED: Yes ALLERGIES: Reviewed and unchanged CONTRAST ALLERGY: NO. EXAM: CT -CONTRAST INDUCED NEPHROPATHY RISK FACTORS: Not applicable CREATININE: Creatinine Date Value Ref Range Status 08/26/2021 0.76 0.73 - 1.22 mg/dL Final 05/10/2021 0.73 0.73 - 1.22 mg/dL Final 03/29/2021 0.75 0.73 - 1.22 mg/dL Final Estimated Glomerular Filtration Rate Date Value Ref Range Status 08/26/2021 104 >=60 mL/min/1.73m Final Comment: Estimated Glomerular Filtration Rate (eGFR) is calculated using the 2020 CKD-EPI creatinine equation. This equation utilizes serum creatinine, sex, and age as parameters. The creatinine assay has traceable calibration to isotope dilution-mass spectrometry. Refer to KDIGO guidelines for clinical interpretation. In patients with unstable renal function, e.g. those with acute kidney injury, the eGFR may not accurately reflect actual GFR. eGFR- Date Value Ref Range Status 05/10/2021 >60 Final P.O.C.T. RESULTS: POC done: Yes, See Lab Tab April 10, 2022 TREATMENT: N/A PERIPHERAL IV DATA: Ambulatory: A peripheral IV was started in the Left antecubital site with a Angio cath: 22 gauge. RADIOLOGY DEPARTMENT: CT; Exam(s) Completed: Abdomen/Pelvis SIGNATURE: RT Silvestre(R) PATIENT NAME: Jonathan Montanez DATE: April 10, 2022 TIME: 2:02 PM documented in this encounter [facility] 04-08-2022 Miscellaneous Notes Last office visit: 08/26/21 F/u scheduled: 05/08/22 Patricia Raphael Ma Patient has been identified by name and date of : Yes Last office visit 08/26/2021 Next office visit: 05/08/2022 RX INSTRUCTIONS: Patient aware RX will be sent to pharmacy. No need to notify patient. Patient phones requesting refills as follows: Requested Prescriptions Pending Prescriptions Disp Refills metFORMIN ER (GLUCOPHAGE XR) 500 mg 24 hr tablet 360 tablet 1 Sig: Take 2 tablets by mouth twice daily before meals. Please review and advise. LORIE Mckeon documented in this encounter [facility] 03-20-2022 Miscellaneous Notes Patient notified please resend to [facility] kulwinder Prema Dang Ma Let p know script for Ozemic injection once a week sent in. The following approved medication requests have been transmitted electronically. Requested Prescriptions Signed Prescriptions Disp Refills semaglutide (OZEMPIC) 2 mg/dose (8 mg/3 mL) pen injector 1 Each 5 Sig: Inject 2 mg subcutaneously one time a week. Authorizing Provider: MO JOHNSTON MD Pt called in and reports he tried calling his insurance and he couldn't get a hold of anyone that spoke Belarusian. He states he's done trying. He wanted to know if the provider could try putting the Ozempic or Victoza through and seeing if they would be covered by his insurance. Please call and advise. documented in this encounter [facility] 03-20-2022 Miscellaneous Notes Spoke with patients and scheduled ct, xray and labs LM on 's cell to call back and schedule CT scan and CXR prior to OV. Patient will also need a lab appt made. Labs will be pended by study nurse. Patient will have to go to [facility] for CXR. Document and close once scheduled. documented in this encounter [facility] 03-18-2022 History of Present illness Narrative POPULATION HEALTH NAVIGATION OUTREACH Action/FYI Orders removed since provider did not sign within 7 days and encounter closed. Please have the office reach out to the patient to coordinate any further testing/appointment needs. Pt identified by name and : NO Outreach Outcome/Action Did you use a PCP flex slot to schedule this appointment? N/A Reason for Outreach Care Gap or Scheduling/Wellness visits Payer: Payor: [employer] MEDICARE / Plan: [employer] MEDICARE HMO / Product Type: HMO / Navigation Signature: Yoselin Reardon March 18, 2022 6:59 AM documented in this encounter [facility] 03-11-2022 History of Present illness Narrative POPULATION HEALTH NAVIGATION OUTREACH Action/I Left message to review H/M [employer] care gap Pended orders for A1C and micro albumin Please add any additional labs Thank you Pt identified by name and : NO Outreach Outcome/Action Unable to reach patient: Left message AFG Mediat message sent Did you use a PCP flex slot to schedule this appointment? N/A Reason for Outreach Care Gap or Scheduling/Wellness visits Payer: Payor: [employer] MEDICARE / Plan: [employer] MEDICARE HMO / Product Type: HMO / Care Gap Reviewed:: Colorectal Cancer Screening HBA1C Flu vaccine Reminder: Reminder note to check Health Maintenance for items below Health Maintenance items due: DTAP,TDAP,TD(1 - Tdap) Never done COLORECTAL CANCER SCREENING Never done SHINGRIX VACCINE(1 of 2) Never done COVID-19 VACCINE(4 - Booster for Pfizer series) due on 03/05/2021 DEPRESSION ASSESSMENT Never done BP CONTROLLED (<130/80) due on 07/04/2021 HBA1C due on 11/26/2021 INFLUENZA(1) due on 12/12/2021 URINE ALBUMIN:CREATININE RATIO due on 01/08/2022 DIABETIC FOOT EXAM due on 01/08/2022 Message Sent to Practice: No Navigation Signature: Yoselin Reardon March 11, 2022 1:38 PM documented in this encounter [facility] 02-10-2022 Miscellaneous Notes Patient has been identified by name and date of : Yes Requested Prescriptions Pending Prescriptions Disp Refills lisinopril-hydroCHLOROthiazide (PRINZIDE,ZESTORETIC) 20-12.5 mg per tablet 90 tablet 1 Sig: Take 1 tablet by mouth once daily. RX INSTRUCTIONS: Patient aware RX will be sent to pharmacy. No need to notify patient. Socorro Bustillo MA Marco: 08/2021 Nov: 04/2022 Last refill: 08/2021 Patient has been identified by name and date of : Yes Requested Prescriptions Pending Prescriptions Disp Refills lisinopril-hydroCHLOROthiazide (PRINZIDE,ZESTORETIC) 20-12.5 mg per tablet 90 tablet 1 Sig: Take 1 tablet by mouth once daily. RX INSTRUCTIONS: Patient aware RX will be sent to pharmacy. No need to notify patient. Nidia Gagnon Pss documented in this encounter [facility] 01-15-2022 Miscellaneous Notes The following approved medication requests have been transmitted electronically. Requested Prescriptions Signed Prescriptions Disp Refills dulaglutide (TRULICITY) 4.5 mg/0.5 mL pen injector 2 mL 2 Sig: Inject 4.5 mg subcutaneously one time a week. Authorizing Provider: MO JOHNSTON MD [facility] 08/26/21 Appointment scheduled 01/31/22 Please advise. Thank you. AMBROSIO Wills Patient has been identified by name and date of : Yes Requested Prescriptions Pending Prescriptions Disp Refills dulaglutide (TRULICITY) 4.5 mg/0.5 mL pen injector 2 mL 2 Sig: Inject 4.5 mg subcutaneously one time a week. RX INSTRUCTIONS: Patient aware RX will be sent to pharmacy. No need to notify patient. Lesvia Nova Pss documented in this encounter [facility] 12-24-2021 Miscellaneous Notes Last office visit: 08/26/21 Next appointment scheduled: 01/31/22 Last labs: 08/26/21 Patient has been identified by name and date of : Yes Requested Prescriptions Pending Prescriptions Disp Refills glimepiride (AMARYL) 4 mg tablet 90 tablet 1 Sig: Take 1 tablet by mouth daily with breakfast. RX INSTRUCTIONS: Patient aware RX will be sent to pharmacy. No need to notify patient. Shu Sandra documented in this encounter [facility] 12-09-2021 Miscellaneous Notes The following approved medication requests have been transmitted electronically. Requested Prescriptions Signed Prescriptions Disp Refills ytlucj-pngsqepa-ntmzdhr (CREON) 24,000-76,000 -120,000 unit delayed release capsule 270 capsule 5 Sig: Take 3 capsules by mouth three times daily with meals. Authorizing Provider: MO JOHNSTON MD Last office visit: 08/26/21 F/u scheduled: 01/31/22 Patricia Raphael Ma Patient has been identified by name and date of : Yes Requested Prescriptions Pending Prescriptions Disp Refills qquduy-dujyjiro-ukztsfj (CREON) 24,000-76,000 -120,000 unit delayed release capsule 270 capsule 5 Sig: Take 3 capsules by mouth three times daily with meals. RX INSTRUCTIONS: Patient aware RX will be sent to pharmacy. No need to notify patient. Elly Turner Pss documented in this encounter [facility] 12-04-2021 History of Present illness Narrative POPULATION HEALTH NAVIGATION OUTREACH Action/FYI: [employer] Care Gaps 12/04/21 Discuss/Due: ~HgBA1C ~Colorectal Cancer Screening due 02/11/22 or after Outcome: ~Left voice mail and sent [employer]hart message Pt identified by name and : NO Outreach Outcome/Action Unable to reach patient: Left message MyChart message sent Did you use a PCP flex slot to schedule this appointment? N/A Reason for Outreach Care Gap or Scheduling/Wellness visits Payer: Payor: [employer] MEDICARE / Plan: [employer] MEDICARE HMO / Product Type: HMO / Care Gap Reviewed:: Colorectal Cancer Screening HBA1C Reminder: Reminder note to check Health Maintenance for items below Health Maintenance items due: HEPATITIS B(1 of 3 - 3-dose series) Never done COVID-19 VACCINE(4 - Booster for Pfizer series) due on 05/10/2021 BP CONTROLLED (<130/80) due on 07/04/2021 HBA1C due on 11/26/2021 Message Sent to Practice: No Navigation Signature: Michel Reyes Population Health Navigator December 04, 2021 2:46 PM documented in this encounter [facility] 10-07-2021 Miscellaneous Notes Last refill Qty: 90 with 1 refill MARCO 08/26/21 NOV 01/31/22 Ena Brush LPN Patient has been identified by name and date of : Yes Pending Prescriptions Disp Refills ATORVASTATIN 80 MG TABLET 90 tablet 1 Sig: Take 1 tablet by mouth once daily. DWIGHT: No RX INSTRUCTIONS: Patient aware RX will be sent to pharmacy. No need to notify patient. Shu Sandra documented in this encounter [facility] 10-03-2021 Miscellaneous Notes Patient has been identified by name and date of : Yes Pending Prescriptions Disp Refills METFORMIN ER 500 MG TABLET,EXTENDED RELEASE 24 HR 360 tablet 1 Sig: Take 2 tablets by mouth twice daily before meals. DWIGHT: No RX INSTRUCTIONS: Patient aware RX will be sent to pharmacy. No need to notify patient. Cata Ramirez LPN documented in this encounter [facility] 09-17-2021 History of Present illness Narrative Primary Care Pharmacy Visit REASON FOR CONSULT: DM GOALS: A1c < 7% CONSULTING PROVIDER: Mo Johnston MD Date of Consult: 04/03/21 Jonathan Montanez is a 60 year old male presenting for follow up visit by telephone. Patient consents to pharmacy collaborative practice agreement. Last seen by Dr. Johnston on 08/26/21, at that visit patient was instructed to complete lab work. At 08/27 phone encounter, reviewed elevated A1c results and instructed to increase Trulicity dose. On 09/05 spoke with patient's and insulin dose was further increased due to elevated blood sugars. INTERIM HISTORY: Spoke with patient and , Ivet Has titrated insulin up to 24 units daily No SMBG log to review, states readings in the 200 - 300s Denies missed doses Alternates insulin injection sites Current DM Medications: Metformin ER 500 mg 2 tabs twice daily Glimepiride 4 mg once daily Insulin degludec (Tresiba) 20 units once daily at bedtime - Has titrated up to 24 units once daily Dulaglutide (Trulicity) 3 mg once weekly Preventative Medications: On CELENA/ARB: Yes On Statin: Yes GLYCEMIC CONTROL: SMBG s: No SMBG log, readings in the 200s - 300s Hypoglycemia: denies ROS: Patient denies CP, SOB, LAM, blurred vision, dizziness or lightheadedness Patient denies nausea, vomiting, diarrhea, abdominal pain Patient denies symptoms of hypoglycemia (sweating, anxiety, palpitations, hunger, and tremor) Patient denies symptoms of hyperglycemia (polyuria, polydipsia, polyphagia) Patient denies potential medication adverse effects DIET/EXERCISE/SOCIAL Hx: 3 meals a day Breakfast: toast peanut butter and banana, cereal, waffles and SF syrup Lunch: leftovers from dinner Dinner: chicken and pasta and veggies (corn, broccoli) Snacks: pretzels, apple pie, ice cream Beverages: milk, tea, OJ or grapefruit juice Exercise: more active in summer time, not much activity in the winter Tobacco: none Alcohol: 2-3 drinks daily Caffeine: none MEDICATIONS: Pill bottles are not present. Adherence: denies missed doses. Diabetes supplies: [employer] System: none ACTIVE PROBLEM LIST Essential Hypertension Mixed Hyperlipidemia Pancreatic Cancer (Hcc) Exocrine Pancreatic Insufficiency Coronary Artery Disease Due to Lipid Rich Plaque Upper Back Pain On Left Side Cervical Pain (Neck) Colon Cancer Screening Uncontrolled Type 2 Diabetes Mellitus With Hyperglycemia (Hcc) Disorder of Prostate Medicare Annual Wellness Visit, Initial Growth of Eyelid Vitreous Floaters of Both Eyes Type 2 Diabetes Mellitus Without Retinopathy (Hcc) Gerd Without Esophagitis Stented Coronary Artery Diabetic Eye Exam (Hcc) Ventral Hernia Without Obstruction Or Gangrene Corns and Callus Uncontrolled Daytime Somnolence Witnessed Apneic Spells Medication Management Primary Insomnia Hyperkalemia Hyponatremia PAST MEDICAL HISTORY Diagnosis Date Cervical pain (neck) 06/06/2015 Corns and callus 06/28/2019 Coronary artery disease due to lipid rich plaque 06/06/2015 Current use of proton pump inhibitor 07/05/2018 Diabetic eye exam (HCC) 01/13/2019 Last done: 01/13/2019 Essential hypertension Exocrine pancreatic insufficiency 03/23/2014 GERD without esophagitis 07/05/2018 Growth of eyelid 12/15/2017 Incisional hernia, without obstruction or gangrene 06/29/2017 Medicare annual wellness visit, initial 06/29/2017 Medicare Part B: 08/11/2016 last done: 12/28/2018 Medicare annual wellness visit, initial 06/29/2017 Medicare Part B: 08/11/2016 last done: 01/04/2020 Mixed hyperlipidemia Pancreatic cancer (HCC) Primary insomnia 07/04/2020 Stented coronary artery Mid LAD REJI,proximal-mid RCA stent Type 2 diabetes mellitus without retinopathy (HCC) 12/15/2017 Uncontrolled type 2 diabetes mellitus without complication, without long-term current use of insulin 09/02/2016 Upper back pain on left side 06/06/2015 Ventral hernia without obstruction or gangrene 06/28/2019 Vitreous floaters of both eyes 12/15/2017 ALLERGIES No Known Allergies Current Outpatient Medications Medication Sig insulin degludec (TRESIBA FLEXTOUCH U-100) 100 unit/mL (3 mL) injection pen Inject 20 Units subcutaneously daily at bedtime. Titrate as directed up to 30 units once daily. dulaglutide (TRULICITY) 3 mg/0.5 mL pen injector Inject 3 mg subcutaneously one time a week. lisinopril-hydroCHLOROthiazide (PRINZIDE,ZESTORETIC) 20-12.5 mg per tablet Take 1 tablet by mouth once daily. metoprolol tartrate, short acting, (LOPRESSOR) 25 mg tablet Take 1 tablet by mouth twice daily. glimepiride (AMARYL) 4 mg tablet Take 1 tablet by mouth daily with breakfast. ytisim-crwyhvbp-qavjmax (CREON) 24,000-76,000 -120,000 unit delayed release capsule Take 3 capsules by mouth three times daily with meals. ammonium lactate (ANGELA-HYDROLAC) 12 % lotion Apply to affected area as needed for Dry Skin (of feet). Lancets lancets Test 2 times daily, Insulin Dep? Yes E11.9 DM 2 blood sugar diagnostic (BLOOD GLUCOSE TEST) test strip Test 2 times daily, Insulin Dep? Yes E11.9 DM 2 Insulin [place], Disposable, (BD TONE 2ND GEN PEN NEEDLE) 32 gauge x 5/32 Use to inject insulin once daily atorvastatin (LIPITOR) 80 mg tablet Take 1 tablet by mouth once daily. metFORMIN ER (GLUCOPHAGE XR) 500 mg 24 hr tablet Take 2 tablets by mouth twice daily before meals. MEDICAL SUPPLY Sig: Abdominal hernia Velcro wrap. # one DX: K43.2 COMPOUNDED PRESCRIPTION Abdominal hernia Velcro wrap. # one DX: K43.2 BABY ASPIRIN ORAL Take 81 mg by mouth once daily. No current facility-administered medications for this visit. EXAM: Last 3 Encounter BP Readings: Date: BP: 08/26/2021 118/82 05/10/2021 100/72 04/01/2021 121/81 Wt: 87.1 kg (192 lb) BMI: 30.99 kg/(m^2) LABS: Lab Results Component Value Date HBA1C 11.4 08/26/2021 HBA1C 13.7 05/10/2021 HBA1C 11.3 01/15/2021 HBA1C 8.6 12/29/2019 CMP: Glucose 239 08/26/2021 BUN 12 08/26/2021 Creatinine, Whole Blood (iSTAT) 0.76 08/26/2021 Sodium 134 08/26/2021 Potassium 5.1 08/26/2021 Chloride 101 08/26/2021 CO2 25 08/26/2021 Protein, Total 6.6 03/29/2021 Albumin 4.1 03/29/2021 Calcium 9.6 08/26/2021 Alkaline Phosphatase 54 03/29/2021 Bilirubin, Total 0.6 03/29/2021 AST 30 03/29/2021 ALT 41 03/29/2021 Serum creatinine: 0.76 mg/dL 08/26/21 1028 Estimated creatinine clearance: 109.5 mL/min No results found for: B12 Lab Results Component Value Date CHOL 114 05/10/2021 CHOL 159 02/12/2018 LDL 38 05/10/2021 LDL 85 02/12/2018 HDL 55 05/10/2021 HDL 60 02/12/2018 TG 104 05/10/2021 TG 70 02/12/2018 The ASCVD Risk score (Chema BOONE Jr., et al., 2013) failed to calculate for the following reasons: The valid total cholesterol range is 130 to 320 mg/dL Albumin/Creat Ratio (mg/g) Date Value 01/08/2021 16 PHARMACOTHERAPY ASSESSMENT/PLAN: 1. Uncontrolled type 2 diabetes mellitus with hyperglycemia (HCC) - ICD9: 250.02, ICD10: E11.65 A1c goal < 7%; not at goal (last A1c 11.4%); SMBG elevated on current regimen; denies s/sx hypoglycemia; denies s/sx hyperglycemia; SMBG readings remain elevated, therefore will further increase basal insulin per titration below. Renal function and LFTs appropriate for continued use INCREASE Tresiba to 28 units once daily then increase as below. Check your blood sugar every morning before eating or drinking anything (fasting blood sugar level). Adjust your insulin every 2 days as follows: (Max dose 34 units daily) If your blood sugar is above 150, INCREASE your insulin by 2 units. If your blood sugar is 80-149, CONTINUE your current insulin dose. Continue this method until you reach your target fasting blood sugar level consistently Continue metformin ER 500 mg 2 tabs twice daily, glimepiride 4 mg once daily, dulaglutide (Trulicity) 3 mg once weekly HbA1c: due 11/26/21 Follow up: Patient is scheduled to see PCP on 01/31/22. Patient to follow up with PharmD on 10/08/21. Patient verbalized understanding of instructions. Benjamin Jerome, PharmD, BCACP Primary Care Clinical Pharmacist [facility] The majority of the pharmacy visit (> 50%) was spent counseling and/or coordinating care for the patient. [Telephonic] time was 16 minutes. documented in this encounter [facility] 09-16-2021 History of Present illness Narrative Statin Use Review Pt chart reviewed as part of population health initiative focused on statin use in patients with diabetes (DM). Jonathan Montanez is identified through data from [employer] (insurer) as a potential candidate for statin therapy with no prescriptions claims processed for a statin medication in this calendar year. Chart Review The following case components were reviewed for current or historic statin use: Confirmed Diabetes: yes Current/Active med list includes a statin: yes IF YES, Last order date and quantity: 04/02/21 Atorvastatin 80 mg #90 with 1 refill Last pharmacy fill date: Per Epic: 07/04/21, Per pharmacy phone call: picked up 07/05/21 IF NO, reason identified (contraindication, intolerance, exclusion, etc.): N/A ALLERGIES No Known Allergies PAST MEDICAL HISTORY Diagnosis Date Cervical pain (neck) 06/06/2015 Corns and callus 06/28/2019 Coronary artery disease due to lipid rich plaque 06/06/2015 Current use of proton pump inhibitor 07/05/2018 Diabetic eye exam (HCC) 01/13/2019 Last done: 01/13/2019 Essential hypertension Exocrine pancreatic insufficiency 03/23/2014 GERD without esophagitis 07/05/2018 Growth of eyelid 12/15/2017 Incisional hernia, without obstruction or gangrene 06/29/2017 Medicare annual wellness visit, initial 06/29/2017 Medicare Part B: 08/11/2016 last done: 12/28/2018 Medicare annual wellness visit, initial 06/29/2017 Medicare Part B: 08/11/2016 last done: 01/04/2020 Mixed hyperlipidemia Pancreatic cancer (HCC) Primary insomnia 07/04/2020 Stented coronary artery Mid LAD REJI,proximal-mid RCA stent Type 2 diabetes mellitus without retinopathy (HCC) 12/15/2017 Uncontrolled type 2 diabetes mellitus without complication, without long-term current use of insulin 09/02/2016 Upper back pain on left side 06/06/2015 Ventral hernia without obstruction or gangrene 06/28/2019 Vitreous floaters of both eyes 12/15/2017 Cholesterol, Total (mg/dL) Date Value 02/12/2018 159 Total Cholesterol, Nonfasting (mg/dL) Date Value 05/10/2021 114 HDL Cholesterol (mg/dL) Date Value 02/12/2018 60 HDL Cholesterol, Nonfasting (mg/dL) Date Value 05/10/2021 55 LDL Cholesterol (mg/dL) Date Value 02/12/2018 85 LDL Cholesterol, Nonfasting (mg/dL) Date Value 05/10/2021 38 Triglyceride (mg/dL) Date Value 02/12/2018 70 Triglycerides, Nonfasting (mg/dL) Date Value 05/10/2021 104 Outcome of review: Confirmed pickup by pharmacy Janet Galvez I reviewed this patient's case and agree with the assessment and plan below. Signature: Nidia Mohamud RPh, PharmD documented in this encounter [facility] 09-05-2021 Miscellaneous Notes Patient's returned call. Confirmed insulin dose of Tresiba 18 units once daily. Due to elevated readings will increase insulin and provide titration scale as below to increase dose up to 30 units once daily. INCREASE Tresiba to 20 units once daily then increase as below. Check your blood sugar every morning before eating or drinking anything (fasting blood sugar level). Adjust your insulin every 3 days as follows: (Max dose 30 units daily) If your blood sugar is above 150, INCREASE your insulin by 2 units. If your blood sugar is 80-149, CONTINUE your current insulin dose. Continue this method until you reach your target fasting blood sugar level consistently Benjamin Jerome PharmD, BCACP Primary Care Clinical Pharmacist [facility] Called and spoke with patient to follow up on readings since changes. He states he just picked up Trulicity 3 mg box. Has not started taking this higher dose yet. States his readings have remained elevated with several in 300s. Discussed increasing insulin dose as a possibility. Patient is not able to confirm his current insulin dose, states his manages this medication for him. Called and Left voicemail for his spouse, Ivet to confirm insulin dose and discuss dose increase. Left voicemail asking her to return call to [phone]. Benjamin Jerome PharmD, MATTCP Primary Care Clinical Pharmacist [facility] Labs show A1c slightly improved but remains elevated on current regimen. Lab Results Component Value Date HBA1C 11.4 08/26/2021 HBA1C 13.7 05/10/2021 HBA1C 11.3 01/15/2021 HBA1C 8.6 12/29/2019 Current DM Medications: Metformin ER 500 mg 2 tabs twice daily Glimepiride 4 mg once daily Insulin degludec (Tresiba) 18 units once daily at bedtime Dulaglutide (Trulicity) 1.5 mg once weekly Patient would benefit from optimizing Trulicity dose to 3 mg weekly. Sending new prescription to pharmacy. Plan: INCREASE Trulicity to 3 mg once weekly and continue all other medications at same dose Attempted to call patient to communicate results and plan. Unable to reach Left voicemail for patient to return call to review results. Also need to set up pharmacy phone visit for follow up in 3 week to review readings and assess blood sugars with this change. Benjamin Jerome, PharmD, BCACP Primary Care Clinical Pharmacist [facility] documented in this encounter [facility] 08-27-2021 Miscellaneous Notes Pt's notified of same. Ena Brush LPN Let patient know BMP was ok. documented in this encounter [facility] 08-26-2021 History of Present illness Narrative Chief Complaint Patient presents with: 4 month follow up HPI Jonathan Montanez is a 60 year old male who presents here today for Above Complaints. and Chronic Medical Conditions.. Patient with hx of HTN, Hyperlipidemia, DM 2, pancreatic cancer seeing oncology, CAD, GERD, pancreatic insufficiency, insomnia, ventral hernia as well as those reviewed and addressed below and in ROS. Patient was not able to get colonoscopy completed and deferring at this time due being to too busy with work. Would prefer to hold off till the winter. Blood sugars are still running 300's before breakfast. Meter is only a few months old. Was to see Pharmacy but cancelled appt and never rescheduled. Past medical history, appointments, medications, allergies reviewed. Previous Medical History PAST MEDICAL HISTORY Diagnosis Date Cervical pain (neck) 06/06/2015 Corns and callus 06/28/2019 Coronary artery disease due to lipid rich plaque 06/06/2015 Current use of proton pump inhibitor 07/05/2018 Diabetic eye exam (HCC) 01/13/2019 Last done: 01/13/2019 Essential hypertension Exocrine pancreatic insufficiency 03/23/2014 GERD without esophagitis 07/05/2018 Growth of eyelid 12/15/2017 Incisional hernia, without obstruction or gangrene 06/29/2017 Medicare annual wellness visit, initial 06/29/2017 Medicare Part B: 08/11/2016 last done: 12/28/2018 Medicare annual wellness visit, initial 06/29/2017 Medicare Part B: 08/11/2016 last done: 01/04/2020 Mixed hyperlipidemia Pancreatic cancer (HCC) Primary insomnia 07/04/2020 Stented coronary artery Mid LAD REJI,proximal-mid RCA stent Type 2 diabetes mellitus without retinopathy (HCC) 12/15/2017 Uncontrolled type 2 diabetes mellitus without complication, without long-term current use of insulin 09/02/2016 Upper back pain on left side 06/06/2015 Ventral hernia without obstruction or gangrene 06/28/2019 Vitreous floaters of both eyes 12/15/2017 Previous Surgical History PAST SURGICAL HISTORY Procedure Laterality Date ENDOSCOPIC ULTRASOUND W/FNA_*FL 01/23/2014 ERCP DX COLLECTION SPECIMEN BRUSHING/WASHING 01/17/14 Cholangiopancreatography (ERCP) [facility] [place] inpt ESOPHAGOGASTRODUODENOSCOPY TRANSORAL DIAGNOSTIC 09/12/15 EGD (mac) PAST SURGICAL HISTORY OF 2 coranary stents PAST SURGICAL HISTORY OF 02/20/2014 Whipple procedure Family History FAMILY HISTORY Problem Relation Age of Onset Hypertension Mother Breast Cancer Sister Diabetes Brother other (COVID) Brother Patient Allergies ALLERGIES No Known Allergies Current Medications Current Outpatient Medications on File Prior to Visit Medication Sig lisinopril-hydroCHLOROthiazide (PRINZIDE,ZESTORETIC) 20-12.5 mg per tablet Take 1 tablet by mouth once daily. dulaglutide (TRULICITY) 1.5 mg/0.5 mL pen injector Inject 1.5 mg subcutaneously one time a week. metoprolol tartrate, short acting, (LOPRESSOR) 25 mg tablet Take 1 tablet by mouth twice daily. insulin degludec (TRESIBA FLEXTOUCH U-100) 100 unit/mL (3 mL) injection pen Inject 18 Units subcutaneously daily at bedtime. glimepiride (AMARYL) 4 mg tablet Take 1 tablet by mouth daily with breakfast. uqqwia-icjwxbic-kefyeme (CREON) 24,000-76,000 -120,000 unit delayed release capsule Take 3 capsules by mouth three times daily with meals. ammonium lactate (ANGELA-HYDROLAC) 12 % lotion Apply to affected area as needed for Dry Skin (of feet). Lancets lancets Test 2 times daily, Insulin Dep? Yes E11.9 DM 2 blood sugar diagnostic (BLOOD GLUCOSE TEST) test strip Test 2 times daily, Insulin Dep? Yes E11.9 DM 2 Insulin [place], Disposable, (BD TONE 2ND GEN PEN NEEDLE) 32 gauge x Use to inject insulin once daily atorvastatin (LIPITOR) 80 mg tablet Take 1 tablet by mouth once daily. metFORMIN ER (GLUCOPHAGE XR) 500 mg 24 hr tablet Take 2 tablets by mouth twice daily before meals. nabumetone (RELAFEN) 500 mg tablet Take 1 tablet by mouth once daily. TAKE WITH FOOD MEDICAL SUPPLY Sig: Abdominal hernia Velcro wrap. # one DX: K43.2 COMPOUNDED PRESCRIPTION Abdominal hernia Velcro wrap. # one DX: K43.2 BABY ASPIRIN ORAL Take 81 mg by mouth once daily. No current facility-administered medications on file prior to visit. Social History Social History Tobacco Use Smoking status: Never Smoker Smokeless tobacco: Never Used Vaping Use Vaping Use: Never used Substance Use Topics Alcohol use: Yes Comment: 2-3 beers daily, occasional shot of crown Drug use: No Review of Symptoms REVIEW OF SYSTEMS GENERAL: No weight loss, malaise or fevers NECK: Negative for lumps, goiter, pain and significant neck swelling RESPIRATORY: Negative for cough, hemoptysis, wheezing, COPD, dyspnea or shortness of breath CARDIOVASCULAR: Negative for chest pain, leg swelling, hypertension, CHF or palpitations GI: No nausea, vomiting, or diarrhea and No heartburn or reflux symptoms ENDOCRINE: Negative for polyuria, polydipsia and goiter., No symptoms of low BS's NEURO: No history of headaches, syncope, paralysis, seizures or tremors EXAM: BP 124/88 Pulse 76 Resp 20 Wt 87.1 kg (192 lb) BMI 30.99 kg/m BP 118/82 Pulse 76 Resp 20 Wt 87.1 kg (192 lb) BMI 30.99 kg/m Last 4 Encounter Wt Readings: Date: Wt: 08/26/2021 87.1 kg (192 lb) 05/10/2021 83.5 kg (184 lb) 04/01/2021 85.5 kg (188 lb 8 oz) 01/08/2021 88 kg (194 lb) General Appearance: Well appearing, alert, in no acute distress, well-hydrated, well nourished. and Overweight. Eyes: Anicteric sclera. Pupils are equally round and reactive to light. Extraocular movements are intact. . Neck: Supple, no adenopathy; thyroid symmetric, normal size, no bruits. Lungs: Lungs clear to auscultation. No wheezing, rhonchi, rales.. Heart: RRR without murmur, gallop, or rubs. No ectopy. Abdomen: Normal abdominal exam, Abdomen soft, non-tender. Bowel sounds normal. No masses, organomegaly. Extremities: No deformities, edema, skin discoloration. Musculoskeletal: . Muscular strength intact, No joint swelling, deformity, or tenderness. Peripheral Pulses: Normal. Neurologic: Gait normal. Reflexes normal and symmetric. Sensation to light touch and crainal nerves 2-12 intact.. Health Maintenance List COLORECTAL CANCER SCREENING Never done COVID-19 VACCINE(4 - Booster for Pfizer series) due on 05/10/2021 HBA1C due on 08/08/2021 DTAP,TDAP,TD(1 - Tdap) due on 01/08/2022 SHINGRIX VACCINE(1 of 2) due on 01/08/2022 URINE ALBUMIN:CREATININE RATIO due on 01/08/2022 DIABETIC FOOT EXAM due on 01/08/2022 LDL CHOLESTEROL due on 05/10/2022 ANNUAL PCP TEAM CHRONIC DISEASE VISIT due on 05/10/2022 BP CONTROLLED (<130/80) due on 05/10/2022 DILATED RETINAL EXAM due on 05/13/2022 PROSTATE CANCER SCREENING DISCUSSION due on 01/08/2026 ONE PNEUMOVAX PRIOR TO AGE 65 Completed INFLUENZA Completed HEPATITIS C SCREENING Completed MENINGOCOCCAL CONJUGATE Aged Out HIV SCREENING Discontinued DEPRESSION SCREENING Discontinued Data reviewed Component Latest Ref Rng & Units 05/10/2021 05/20/2021 Glucose 74 - 99 mg/dL 357 (H) BUN 9 - 24 mg/dL 10 Creatinine 0.73 - 1.22 mg/dL 0.73 Sodium 136 - 144 mmol/L 130 (L) Potassium 3.7 - 5.1 mmol/L 5.5 (H) 5.0 Chloride 97 - 105 mmol/L 96 (L) CO2 22 - 30 mmol/L 23 Anion Gap 9 - 18 mmol/L 11 Calcium 8.5 - 10.2 mg/dL 9.8 eGFR- >60 eGFR-All Other Races . >60 Total Cholesterol, Nonfasting <200 mg/dL 114 Triglycerides, Nonfasting <150 mg/dL 104 HDL Cholesterol, Nonfasting >39 mg/dL 55 LDL Cholesterol, Nonfasting <100 mg/dL 38 Non HDL Cholesterol, Nonfasting <130 mg/dL 59 VLDL Cholesterol, Nonfasting <30 mg/dL 21 Total Chol/HDL Ratio, Nonfasting <5.10 mg/dL 2.07 LDL/HDL Ratio, Nonfasting <2.54 mg/dL 0.69 Hemoglobin A1C 4.3 - 5.6 % 13.7 (H) Estimated Average Glucose mg/dL 346 A/P ASSESSMENT/PLAN: 1. Uncontrolled type 2 diabetes mellitus with hyperglycemia (HCC) - ICD9: 250.02, ICD10: E11.65 (primary diagnosis) Will check A1c and make changes based on this. - Continue current medications - Encouraged regular aerobic exercise and weight loss - Patient to meet with pharmacy - BP goal of <130/80 - LDL goal of <100 2. Type 2 diabetes mellitus without retinopathy (HCC) - ICD9: 250.00, ICD10: E11.9 - As above 3. Diabetic eye exam (HCC) - ICD9: V72.0, 250.00, ICD10: Z01.00, E11.9 - up to date 4. Mixed hyperlipidemia - ICD9: 272.2, ICD10: E78.2 - good control - Continue current medication. - Encouraged following a low fat, low cholesterol diet. - Discussed the benefits of regular aerobic exercise and weight loss. - Encouraged following a low carbohydrate, healthy oil intake diet. 5. Coronary artery disease due to lipid rich plaque - ICD9: 414.00, 414.3, ICD10: I25.10, I25.83 - Clinically stable no changes or imaging needed. 6. Essential hypertension - ICD9: 401.9, ICD10: I10 - good control - Continue current medication(s) - Recommended regular aerobic exercise. - Recommend home blood pressure monitoring, to bring results in on next visit - Goal of BP <130/80 7. Malignant neoplasm of head of pancreas (HCC) - ICD9: 157.0, ICD10: C25.0 - Management per oncology 8. GERD without esophagitis - ICD9: 530.81, ICD10: K21.9 - Controlled with diet. 9. Exocrine pancreatic insufficiency - ICD9: 577.8, ICD10: K86.81 - Cont creon 10. Primary insomnia - ICD9: 307.42, ICD10: F51.01 - Stable; Gets about 6 hrs a night. F/u 5 months routine extensive Mo Johnston MD documented in this encounter [facility] 08-21-2021 Miscellaneous Notes Last refill 02/20/21 Qty: 90 with 1 refill Pt has appt 08/26/21 Ena Brush LPN Pharmacy verified in [facility] Patient has been identified by name and date of : Yes Patient aware RX will be sent to pharmacy. No need to notify patient. Patient phones for refill(s): Pending Prescriptions Disp Refills LISINOPRIL 20 MG-HYDROCHLOROTHIAZIDE 12.5 MG TABLET 90 tablet 1 Sig: Take 1 tablet by mouth once daily. DWIGHT: No Date of last office visit : 05/10/2021 Date of next office visit : 08/26/2021 Last 2 Encounter Wt Readings: Date: Wt: 05/10/2021 83.5 kg (184 lb) 04/01/2021 85.5 kg (188 lb 8 oz) Please advise. Zoë Alvarez Pss documented in this encounter [facility] 08-06-2021 Miscellaneous Notes The following approved medication requests have been transmitted electronically. Signed Prescriptions Disp Refills dulaglutide (TRULICITY) 1.5 mg/0.5 mL pen injector 2 mL 1 Sig: Inject 1.5 mg subcutaneously one time a week. DWIGHT: No Authorizing Provider: MO JOHNSTON MD Last office visit: 05/10/21 F/u scheduled: 08/26/21 Patricia Raphael Ma Patient has been identified by name and date of : Yes Pending Prescriptions Disp Refills TRULICITY 1.5 MG/0.5 ML SUBCUTANEOUS PEN INJECTOR 2 mL 1 Sig: Inject 1.5 mg subcutaneously one time a week. DWIGHT: No RX INSTRUCTIONS: Patient aware RX will be sent to pharmacy. No need to notify patient. Myah Turner documented in this encounter [facility] 07-24-2021 Miscellaneous Notes Patient was notified Prema Dang Ma Let patient know I sent a new script with the new dosing level and explanation as to need for refill sooner. The following approved medication requests have been transmitted electronically. Signed Prescriptions Disp Refills insulin degludec (TRESIBA FLEXTOUCH U-100) 100 unit/mL (3 mL) injection pen 5 Pen 3 Sig: Inject 18 Units subcutaneously daily at bedtime. DWIGHT: No Authorizing Provider: MO JOHNSTON MD Patient Jonathan called, he went to refill his prescription-insulin degludec (TRESIBA FLEXTOUCH U-100) 100 unit/mL (3 mL) injection pen, at [facility], insurance will not refill until 08/16, his insulin has been recently increased to 18 units, insurance won't cover. Jonathan will be out in a few days. Please advise, . documented in this encounter [facility] Diagnosis Primary pancreatic cancer (HCC)- Primary [facility] Diagnosis Uncontrolled type 2 diabetes mellitus with hyperglycemia (HCC) [facility] Diagnosis Uncontrolled type 2 diabetes mellitus with hyperglycemia (HCC)- Primary Type 2 diabetes mellitus without retinopathy (HCC) Type II or unspecified type diabetes mellitus without mention of complication, not stated as uncontrolled Diabetic eye exam (HCC) Type II or unspecified type diabetes mellitus without mention of complication, not stated as uncontrolled Mixed hyperlipidemia Coronary artery disease due to lipid rich plaque Essential hypertension Unspecified essential hypertension Malignant neoplasm of head of pancreas (HCC) Malignant neoplasm of head of pancreas GERD without esophagitis Esophageal reflux Exocrine pancreatic insufficiency Other specified disease of pancreas Primary insomnia Persistent disorder of initiating or maintaining sleep [facility] Diagnosis Uncontrolled type 2 diabetes mellitus with hyperglycemia (HCC)- [facility] Diagnosis Uncontrolled type 2 diabetes mellitus with hyperglycemia (HCC)- [facility] Malignant neoplasm of head of pancreas (HCC) Malignant neoplasm of head of pancreas [facility] Diagnosis Uncontrolled type 2 diabetes mellitus with hyperglycemia (HCC) [facility] Diagnosis Type 2 diabetes mellitus without retinopathy (HCC)- Primary Type II or unspecified type diabetes mellitus without mention of complication, not stated as uncontrolled [facility] Diagnosis Malignant neoplasm of head of pancreas (HCC)- Primary Malignant neoplasm of head of pancreas Examination of participant in clinical trial [facility] Diagnosis Medicare annual wellness visit, subsequent- Primary Routine general medical examination at a health care facility Uncontrolled type 2 diabetes mellitus with hyperglycemia (HCC) Diabetic eye exam (HCC) Type II or unspecified type diabetes mellitus without mention of complication, not stated as uncontrolled Type 2 diabetes mellitus without retinopathy (HCC) Type II or unspecified type diabetes mellitus without mention of complication, not stated as uncontrolled Essential hypertension Unspecified essential hypertension Mixed hyperlipidemia Coronary artery disease due to lipid rich plaque GERD without esophagitis Esophageal reflux Primary insomnia Persistent disorder of initiating or maintaining sleep Malignant neoplasm of head of pancreas (HCC) Malignant neoplasm of head of pancreas Exocrine pancreatic insufficiency Other specified disease of pancreas Corns and callus Corns and callosities Colon cancer screening Special screening for malignant neoplasms, colon Disorder of prostate Unspecified disorder of prostate Screening for colon cancer Special screening for malignant neoplasms, colon Encounter for immunization Need for other specified prophylactic vaccination against single bacterial disease Diminished pulses in lower extremity Other symptoms involving cardiovascular system Toe cyanosis Cyanosis [facility] Diagnosis 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 [facility] Diagnosis HERNANDEZ (nonalcoholic steatohepatitis) Other chronic nonalcoholic liver disease [facility] Diagnosis Uncontrolled type 2 diabetes mellitus with hyperglycemia (HCC)- Primary [facility] Diagnosis Uncontrolled type 2 diabetes mellitus with hyperglycemia (HCC)- Primary Hyponatremia Hyposmolality and/or hyponatremia Hyperkalemia Hyperpotassemia Elevated LFTs Other abnormal blood chemistry [facility] Diagnosis Malignant neoplasm of head of pancreas (HCC)- Primary Malignant neoplasm of head of pancreas [facility] Diagnosis Uncontrolled type 2 diabetes mellitus with hyperglycemia (HCC)- Primary Type 2 diabetes mellitus without retinopathy (HCC) Type II or unspecified type diabetes mellitus without mention of complication, not stated as uncontrolled Diabetic eye exam (HCC) Type II or unspecified type diabetes mellitus without mention of complication, not stated as uncontrolled Essential hypertension Unspecified essential hypertension Mixed hyperlipidemia Coronary artery disease due to lipid rich plaque GERD without esophagitis Esophageal reflux Malignant neoplasm of head of pancreas (HCC) Malignant neoplasm of head of pancreas Exocrine pancreatic insufficiency Other specified disease of pancreas Primary insomnia Persistent disorder of initiating or maintaining sleep HERNANDEZ (nonalcoholic steatohepatitis) Other chronic nonalcoholic liver disease Colon cancer screening Special screening for malignant neoplasms, colon Need for vaccination Need for prophylactic vaccination and inoculation against unspecified single disease [facility] Diagnosis Plantar fasciitis- Primary Plantar fascial fibromatosis Myalgia Mylagia and myositis, unspecified [facility] Diagnosis Uncontrolled type 2 diabetes mellitus with hyperglycemia (HCC) [facility] Diagnosis Elevated LFTs Other abnormal blood chemistry [facility] Diagnosis Malignant neoplasm of head of pancreas (HCC) Malignant neoplasm of head of pancreas Examination of participant in clinical trial [facility] Diagnosis Uncontrolled type 2 diabetes mellitus with hyperglycemia (HCC) documented in this encounter [facility] for referral (narrative)* Outpatient Procedure (Routine) - Authorized Specialty Diagnoses / Procedures Referred By Contac t Referred To [facility] Diagnoses Diminished pulses in lower extremity Toe cyanosis Procedures PVR LEG W/EXC ALESSIA VAS LAB N-INVAS PHYSIOLOGIC STD LXTR ART COMPL BI Mo Johnston MD [address] [place] [address] [facility] [place] [address] [place] [address] Referral ID Status Reason Start Date Expiration Date Visits Requested Visits Authorized [id number] Authorized Auto-Generat ed Referral 05/08/2022 05/08/2023 1 1 * Consult, Test, Treat (Routine) - Authorized [facility]ty Diagnoses / Procedures [facility] Diagnoses Colon cancer screening Procedures CONSULT TO GENERAL SURGERY OFFICE/OUTPATIENT [facility] 60-74 MINUTES Mo Johnston MD [address] [place] [address] Referral ID Status Reason Start Date Expiration Date Visits Requested Visits Authorized [id number] Authorized PCP Requested Referral 05/08/2022 05/07/2023 1 1 [facility] for referral (narrative)* Diagnostic Procedure Only (Routine) - Closed Specialty Diagnoses / Procedures [facility] To [facility] IMAGING Diagnoses Elevated LFTs Procedures US ABD RT UPPER QUADRANT US ABDOMINAL REAL TIME W/IMAGE LIMITED Mo Johnston MD [address] [place] [address] [facility] Referral ID Status Reason Start Date Expiration Date V isits Requested Visits Authorized [id number] Closed Auto-Generate d Referral 05/11/2022 06/10/2023 1 1 * Consult, Test, Treat (Routine) - Closed Specialty Diagnoses / Procedures [facility] To Contact Endocrinology Diagnoses Uncontrolled type 2 diabetes mellitus with hyperglycemia (HCC) Hyponatremia Hyperkalemia Procedures CONSULT TO ENDOCRINOLOGY OFFICE/OUTPATIENT [facility] MDM 60-74 MINUTES Mo Johnston MD [address] [place] [address] Referral ID Status Reason Start Date Expiration Date V isits Requested Visits Authorized [id number] Closed PCP Requested Referral 05/11/2022 05/11/2023 [facility] Diagnostic Procedure Only (Routine) - Closed Specialty Diagnoses / Procedures Referred By Mario t Referred To Contact US IMAGING Diagnoses Elevated LFTs Procedures US ABD RT UPPER QUADRANT US ABDOMINAL REAL TIME W/IMAGE LIMITED Mo Johnston MD [address] [place] [address] [place] [address] Referral ID Status Reason Start Date Expiration Date V isits Requested Visits Authorized [id number] Closed Auto-Generate d Referral 05/11/2022 06/10/2023 1 1 [facility] Summary Purpose Family History No Family History Records FoundNo Family History Records FoundNo Family History Records FoundNo Family History Records Found Advance Directives No Advanced Directives Records FoundDocuments on File Type Date Recorded Patient Route Sales Trainee Expl anation Advance Directive(s) 10/30/2020 6:19 AM Advance Directive(s) 09/12/2015 8:15 AM Advance Directive(s) 08/29/2015 11:12 AM Reason for Referral Specialty Diagnoses / Procedures Referred By Mario t Referred To Contact Diagnoses 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) Procedures CONSULT TO DIABETES EDUCATION MEDICAL NUTRITION ASSMT&IVNTJ INDIV EACH 15 ME MEDICAL NUTRITION ASSMT&IVNTJ INDIV EACH 15 ME MEDICAL NUTRITION ASSMT&IVNTJ INDIV EACH 15 ME MEDICAL NUTRITION ASSMT&IVNTJ INDIV EACH 15 ME Jasmin Dunham, OLVIN.FREELANCE DISPLAYER [address] [place] [address] Referral ID Status Reason Start Date Expiration Date Visits Requested Visits Authorized [id number] Authorized PCP Requested Referral 05/28/2022 05/28/2023 1 1 Specialty Diagnoses / Procedures Referred By Contac t Referred To Contact CT IMAGING Diagnoses Malignant neoplasm of head of pancreas (HCC) Procedures CT ABD/PEL W IVCON CT ABD & PELVIS W/CONTRAST Jessica Good APRN.FREELANCE DISPLAYER [address] [place] [address] Ct Imaging Referral ID Status Reason Start Date Expiration Date Visits Requested Visits Authorized [id number] Pending Review Auto-Generat ed Referral 04/17/2023 05/17/2023 1 1 Specialty Diagnoses / Procedures Referred By Contac t Referred To Contact Ophthalmology Diagnoses Type 2 diabetes mellitus without retinopathy (HCC) Diabetic eye exam (HCC) Procedures CONSULT TO OPHTHALMOLOGY OFFICE/OUTPATIENT [facility] 60-74 MINUTES Mo Johnston MD [address] [place] [address] Referral ID Status Reason Start Date Expiration Date Visits Requested Visits Authorized [id number] Authorized PCP Requested Referral 09/15/2022 09/15/2023 1 1 Specialty Diagnoses / Procedures Referred By Contac t Referred To Contact CT IMAGING Diagnoses Malignant neoplasm of head of pancreas (HCC) Examination of participant in clinical trial Procedures CT ABD/PEL W IVCON CT ABD & PELVIS W/CONTRAST Jessica Good APRN.FREELANCE DISPLAYER [address] [place] [address] [place] [id number] Referral ID Status Reason Start Date Expiration Date V isits Requested Visits Authorized [id number] Closed Auto-Generate d Referral 03/20/2022 04/12/2022 2 2 Additional Source Comments (unrecognized sect ion and content) No Status Records FoundNo Status Records FoundNo Status Records FoundNo Status Records Found INFORMATION SOURCE (unrecogn ized section and content) DATE CREATED AUTHOR AUTHOR'S ORGANIZ ATION 04/12/[address] [facility] DATE CREATED AUTHOR AUTHOR'S ORGANIZ ATION 04/12/2023 [facility] DATE CREATED AUTHOR AUTHOR'S ORGANIZ ATION 06/25/2023 [facility] Source Comments (unrecognize d section and content) In the event this informatio n is protected by the Federal Confidentiality of Alcohol and Drug Abuse Patient Records regulations: The Federal rules restrict any use of the information to criminally investigate or prosecute any alcohol or drug abuse patient.[facility] the event this information is protected by the Federal Confidentiality of Alcohol and Drug Abuse Patient Records regulations: The Federal rules restrict any use of the information to criminally investigate or prosecute any alcohol or drug abuse patient.[facility] HospitalIn the event this information is protected by the Federal Confidentiality of Alcohol and Drug Abuse Patient Records regulations: The Federal rules restrict any use of the information to criminally investigate or prosecute any alcohol or drug abuse patient.[facility] HospitalIn the event this information is protected by the Federal Confidentiality of Alcohol and Drug Abuse Patient Records regulations: The Federal rules restrict any use of the information to criminally investigate or prosecute any alcohol or drug abuse patient.[facility] HospitalIn the event this information is protected by the Federal Confidentiality of Alcohol and Drug Abuse Patient Records regulations: The Federal rules restrict any use of the information to criminally investigate or prosecute any alcohol or drug abuse patient.[facility] HospitalIn the event this information is protected by the Federal Confidentiality of Alcohol and Drug Abuse Patient Records regulations: The Federal rules restrict any use of the information to criminally investigate or prosecute any alcohol or drug abuse patient.[facility] HospitalIn the event this information is protected by the Federal Confidentiality of Alcohol and Drug Abuse Patient Records regulations: The Federal rules restrict any use of the information to criminally investigate or prosecute any alcohol or drug abuse patient.[facility] HospitalIn the event this information is protected by the Federal Confidentiality of Alcohol and Drug Abuse Patient Records regulations: The Federal rules restrict any use of the information to criminally investigate or prosecute any alcohol or drug abuse patient.[facility] HospitalIn the event this information is protected by the Federal Confidentiality of Alcohol and Drug Abuse Patient Records regulations: The Federal rules restrict any use of the information to criminally investigate or prosecute any alcohol or drug abuse patient.[facility] HospitalIn the event this information is protected by the Federal Confidentiality of Alcohol and Drug Abuse Patient Records regulations: The Federal rules restrict any use of the information to criminally investigate or prosecute any alcohol or drug abuse patient.[facility] HospitalIn the event this information is protected by the Federal Confidentiality of Alcohol and Drug Abuse Patient Records regulations: The Federal rules restrict any use of the information to criminally investigate or prosecute any alcohol or drug abuse patient.[facility] HospitalIn the event this information is protected by the Federal Confidentiality of Alcohol and Drug Abuse Patient Records regulations: The Federal rules restrict any use of the information to criminally investigate or prosecute any alcohol or drug abuse patient.[facility] HospitalIn the event this information is protected by the Federal Confidentiality of Alcohol and Drug Abuse Patient Records regulations: The Federal rules restrict any use of the information to criminally investigate or prosecute any alcohol or drug abuse patient.[facility] HospitalIn the event this information is protected by the Federal Confidentiality of Alcohol and Drug Abuse Patient Records regulations: The Federal rules restrict any use of the information to criminally investigate or prosecute any alcohol or drug abuse patient.[facility] HospitalIn the event this information is protected by the Federal Confidentiality of Alcohol and Drug Abuse Patient Records regulations: The Federal rules restrict any use of the information to criminally investigate or prosecute any alcohol or drug abuse patient.[facility] HospitalIn the event this information is protected by the Federal Confidentiality of Alcohol and Drug Abuse Patient Records regulations: The Federal rules restrict any use of the information to criminally investigate or prosecute any alcohol or drug abuse patient.[facility] HospitalIn the event this information is protected by the Federal Confidentiality of Alcohol and Drug Abuse Patient Records regulations: The Federal rules restrict any use of the information to criminally investigate or prosecute any alcohol or drug abuse patient.[facility] HospitalIn the event this information is protected by the Federal Confidentiality of Alcohol and Drug Abuse Patient Records regulations: The Federal rules restrict any use of the information to criminally investigate or prosecute any alcohol or drug abuse patient.[facility] HospitalIn the event this information is protected by the Federal Confidentiality of Alcohol and Drug Abuse Patient Records regulations: The Federal rules restrict any use of the information to criminally investigate or prosecute any alcohol or drug abuse patient.[facility] HospitalIn the event this information is protected by the Federal Confidentiality of Alcohol and Drug Abuse Patient Records regulations: The Federal rules restrict any use of the information to criminally investigate or prosecute any alcohol or drug abuse patient.[facility] HospitalIn the event this information is protected by the Federal Confidentiality of Alcohol and Drug Abuse Patient Records regulations: The Federal rules restrict any use of the information to criminally investigate or prosecute any alcohol or drug abuse patient.[facility] HospitalIn the event this information is protected by the Federal Confidentiality of Alcohol and Drug Abuse Patient Records regulations: The Federal rules restrict any use of the information to criminally investigate or prosecute any alcohol or drug abuse patient.[facility] HospitalIn the event this information is protected by the Federal Confidentiality of Alcohol and Drug Abuse Patient Records regulations: The Federal rules restrict any use of the information to criminally investigate or prosecute any alcohol or drug abuse patient.[facility] HospitalIn the event this information is protected by the Federal Confidentiality of Alcohol and Drug Abuse Patient Records regulations: The Federal rules restrict any use of the information to criminally investigate or prosecute any alcohol or drug abuse patient.[facility] HospitalIn the event this information is protected by the Federal Confidentiality of Alcohol and Drug Abuse Patient Records regulations: The Federal rules restrict any use of the information to criminally investigate or prosecute any alcohol or drug abuse patient.[facility] HospitalIn the event this information is protected by the Federal Confidentiality of Alcohol and Drug Abuse Patient Records regulations: The Federal rules restrict any use of the information to criminally investigate or prosecute any alcohol or drug abuse patient.[facility] HospitalIn the event this information is protected by the Federal Confidentiality of Alcohol and Drug Abuse Patient Records regulations: The Federal rules restrict any use of the information to criminally investigate or prosecute any alcohol or drug abuse patient.[facility] HospitalIn the event this information is protected by the Federal Confidentiality of Alcohol and Drug Abuse Patient Records regulations: The Federal rules restrict any use of the information to criminally investigate or prosecute any alcohol or drug abuse patient.[facility] HospitalIn the event this information is protected by the Federal Confidentiality of Alcohol and Drug Abuse Patient Records regulations: The Federal rules restrict any use of the information to criminally investigate or prosecute any alcohol or drug abuse patient.[facility] HospitalIn the event this information is protected by the Federal Confidentiality of Alcohol and Drug Abuse Patient Records regulations: The Federal rules restrict any use of the information to criminally investigate or prosecute any alcohol or drug abuse patient.[facility] HospitalIn the event this information is protected by the Federal Confidentiality of Alcohol and Drug Abuse Patient Records regulations: The Federal rules restrict any use of the information to criminally investigate or prosecute any alcohol or drug abuse patient.[facility] HospitalIn the event this information is protected by the Federal Confidentiality of Alcohol and Drug Abuse Patient Records regulations: The Federal rules restrict any use of the information to criminally investigate or prosecute any alcohol or drug abuse patient.[facility] HospitalIn the event this information is protected by the Federal Confidentiality of Alcohol and Drug Abuse Patient Records regulations: The Federal rules restrict any use of the information to criminally investigate or prosecute any alcohol or drug abuse patient.[facility] HospitalIn the event this information is protected by the Federal Confidentiality of Alcohol and Drug Abuse Patient Records regulations: The Federal rules restrict any use of the information to criminally investigate or prosecute any alcohol or drug abuse patient.[facility] HospitalIn the event this information is protected by the Federal Confidentiality of Alcohol and Drug Abuse Patient Records regulations: The Federal rules restrict any use of the information to criminally investigate or prosecute any alcohol or drug abuse patient.[facility] HospitalIn the event this information is protected by the Federal Confidentiality of Alcohol and Drug Abuse Patient Records regulations: The Federal rules restrict any use of the information to criminally investigate or prosecute any alcohol or drug abuse patient.[facility] HospitalIn the event this information is protected by the Federal Confidentiality of Alcohol and Drug Abuse Patient Records regulations: The Federal rules restrict any use of the information to criminally investigate or prosecute any alcohol or drug abuse patient.[facility] HospitalIn the event this information is protected by the Federal Confidentiality of Alcohol and Drug Abuse Patient Records regulations: The Federal rules restrict any use of the information to criminally investigate or prosecute any alcohol or drug abuse patient.[facility] HospitalIn the event this information is protected by the Federal Confidentiality of Alcohol and Drug Abuse Patient Records regulations: The Federal rules restrict any use of the information to criminally investigate or prosecute any alcohol or drug abuse patient.[facility] HospitalIn the event this information is protected by the Federal Confidentiality of Alcohol and Drug Abuse Patient Records regulations: The Federal rules restrict any use of the information to criminally investigate or prosecute any alcohol or drug abuse patient.[facility] HospitalIn the event this information is protected by the Federal Confidentiality of Alcohol and Drug Abuse Patient Records regulations: The Federal rules restrict any use of the information to criminally investigate or prosecute any alcohol or drug abuse patient.[facility] HospitalIn the event this information is protected by the Federal Confidentiality of Alcohol and Drug Abuse Patient Records regulations: The Federal rules restrict any use of the information to criminally investigate or prosecute any alcohol or drug abuse patient.[facility] HospitalIn the event this information is protected by the Federal Confidentiality of Alcohol and Drug Abuse Patient Records regulations: The Federal rules restrict any use of the information to criminally investigate or prosecute any alcohol or drug abuse patient.[facility] HospitalIn the event this information is protected by the Federal Confidentiality of Alcohol and Drug Abuse Patient Records regulations: The Federal rules restrict any use of the information to criminally investigate or prosecute any alcohol or drug abuse patient.[facility] HospitalIn the event this information is protected by the Federal Confidentiality of Alcohol and Drug Abuse Patient Records regulations: The Federal rules restrict any use of the information to criminally investigate or prosecute any alcohol or drug abuse patient.[facility] HospitalIn the event this information is protected by the Federal Confidentiality of Alcohol and Drug Abuse Patient Records regulations: The Federal rules restrict any use of the information to criminally investigate or prosecute any alcohol or drug abuse patient.[facility] HospitalIn the event this information is protected by the Federal Confidentiality of Alcohol and Drug Abuse Patient Records regulations: The Federal rules restrict any use of the information to criminally investigate or prosecute any alcohol or drug abuse patient.[facility] HospitalIn the event this information is protected by the Federal Confidentiality of Alcohol and Drug Abuse Patient Records regulations: The Federal rules restrict any use of the information to criminally investigate or prosecute any alcohol or drug abuse patient.[facility] HospitalIn the event this information is protected by the Federal Confidentiality of Alcohol and Drug Abuse Patient Records regulations: The Federal rules restrict any use of the information to criminally investigate or prosecute any alcohol or drug abuse patient.[facility] HospitalIn the event this information is protected by the Federal Confidentiality of Alcohol and Drug Abuse Patient Records regulations: The Federal rules restrict any use of the information to criminally investigate or prosecute any alcohol or drug abuse patient.[facility] HospitalIn the event this information is protected by the Federal Confidentiality of Alcohol and Drug Abuse Patient Records regulations: The Federal rules restrict any use of the information to criminally investigate or prosecute any alcohol or drug abuse patient.[facility] HospitalIn the event this information is protected by the Federal Confidentiality of Alcohol and Drug Abuse Patient Records regulations: The Federal rules restrict any use of the information to criminally investigate or prosecute any alcohol or drug abuse patient.[facility] HospitalIn the event this information is protected by the Federal Confidentiality of Alcohol and Drug Abuse Patient Records regulations: The Federal rules restrict any use of the information to criminally investigate or prosecute any alcohol or drug abuse patient.[facility] Reason for Visit (unrecogniz ed section and content) Specialty Diagnoses / Procedures Referred By Contac t Referred To Contact CT IMAGING Diagnoses Malignant neoplasm of head of pancreas (HCC) Examination of participant in clinical trial Procedures CT ABD/PEL W IVCON CT ABD & PELVIS W/CONTRAST Jessica Good, OLVIN.FREELANCE DISPLAYER [address] [place] [address] [place] [id number] Referral ID Status Reason Start Date Expiration Date V isits Requested Visits Authorized [id number] Closed Auto-Generate d Referral 03/20/2022 04/12/2022 2 2 Reason Comments Medication Problem Reason Comments Orders Study lab orders Reason Onset Date Comments Refill Request 08/06/2021 Reason Onset Date Comments Refill Request 08/20/2021 Reason Comments 4 month follow up Reason Comments Results Reason Comments Results A1c Reason Onset Date Comments Statin Use Review 09/16/2021 Reason Comments Allied Health Visit DM Reason Onset Date Comments Refill Request 10/03/2021 Reason Onset Date Comments Refill Request 10/07/2021 Reason Onset Date Comments Population Health Navigation Outreach 12/04/2021 [employer] Care Gaps Reason Onset Date Comments Refill Request 12/09/2021 Reason Onset Date Comments Refill Request 12/24/2021 Reason Comments Refill Request Reason Onset Date Comments Refill Request 02/10/2022 Reason Onset Date Comments Population Health Navigation Outreach 03/18/2022 [employer] Care gap Reason Onset Date Comments Population Health Navigation Outreach 03/11/2022 [employer] care gap Reason Comments Appointment Reason Onset Date Comments Refill Request 04/07/2022 Reason Comments Established Patient Specialty Diagnoses / Procedures Referred By Contac t Referred To Contact Ophthalmology Diagnoses Uncontrolled type 2 diabetes mellitus with hyperglycemia (HCC) Type 2 diabetes mellitus without retinopathy (HCC) Procedures CONSULT TO OPHTHALMOLOGY OFFICE/OUTPATIENT NEW HIGH MDM 60-74 MINUTES OFFICE/OUTPATIENT ESTABLISHED SF MDM 10-19 MIN OFFICE/OUTPATIENT ESTABLISHED LOW MDM 20-29 MIN OFFICE/OUTPATIENT ESTABLISHED MOD MDM 30-39 MIN OFFICE/OUTPATIENT ESTABLISHED HIGH MDM 40-54 MIN Jessica Good APRN.FREELANCE DISPLAYER [address] [place] [address] [facility] [address] [place] [address] Referral ID Status Reason Start Date Expiration Date Visits Requested Visits Authorized [id number] Authorized PCP Requested Referral 2 05/10/2022 1 99 Reason Comments Physical Reason Onset Date Comments Refill Request 05/23/2022 Reason Comments Diabetes Type 2 diabetes Specialty Diagnoses / Procedures Referred By Contac t Referred To Contact Endocrinology Diagnoses Uncontrolled type 2 diabetes mellitus with hyperglycemia (HCC) Hyponatremia Hyperkalemia Procedures CONSULT TO ENDOCRINOLOGY OFFICE/OUTPATIENT NEW HIGH MDM 60-74 MINUTES Mo Johnston MD [address] [place] [address] Referral ID Status Reason Start Date Expiration Date V isits Requested Visits Authorized [id number] Closed PCP Requested Referral 05/11/2022 05/11/2023 1 1 Reason Comments Results Reason Comments Orders Reason Onset Date Comments Population Health Navigation Outreach 06/20/2022 [employer] Care Gaps Reason Onset Date Comments Refill Request 08/16/2022 Reason Comments F/U 6 months Reason Onset Date Comments Med Change Request Refill Request 10/10/2022 Reason Onset Date Comments Refill Request 10/28/2022 Reason Comments Pain Reason Onset Date Comments Population Health Navigation Outreach 11/05/2022 [employer] care gaps Reason Onset Date Comments Refill Request 11/10/2022 Reason Onset Date Comments [facility] Navigation Outreach 12/30/2022 [employer] care gaps Reason Comments medication problem/refill Reason Comments Radiology US Specialty Diagnoses / Procedures Referred By Contac t Referred To Contact US IMAGING Diagnoses Elevated LFTs Procedures US ABD RT UPPER QUADRANT US ABDOMINAL REAL TIME W/IMAGE LIMITED Mo Johnston MD [address] [place] [address] [place] [address] Referral ID Status Reason Start Date Expiration Date V isits Requested Visits Authorized [id number] Closed Auto-Generate d Referral 05/11/2022 06/10/2023 1 1 Reason Onset Date Comments Refill Request 02/16/2023 Reason Onset Date Comments Population Health Navigation Outreach 03/12/2023 [employer] care gaps Reason Comments Outside Cardiology Reason Comments Type 2 Diabetes Uncontrolled - A1c 1 4.1% on 04/06/2023 Specialty Diagnoses / Procedures Referred By Contac t Referred To Contact Endocrinology / ENDOCRINOLOGY Diagnoses Uncontrolled type 2 diabetes mellitus with hyperglycemia (HCC) Procedures CONSULT TO ENDOCRINOLOGY OFFICE/OUTPATIENT [facility] MDM 60 MINUTES Mo Johnston MD [address] [place] [address] [facility] [address] [place] [address] Referral ID Status Reason Start Date Expiration Date V isits Requested Visits Authorized [id number] Closed PCP Requested Referral 04/23/2023 04/22/2024 1 1 Care Teams (unrecognized sec tion and content) Pharmacy Teacher Relationship Specialty Start Date End Date Mo Johnston MD [address] [place], [place] [id number] PCP - General Family Practice 05/02/13 Darell Javier MD [address] [place] [address] Physician Oncology 01/31/14 Rebecca Salcedo (Ns)(Hist) [address] [place] [address] Clinical Nurse Specialist Hematology/Oncology 01/31/14 [place] [address] [place], [place] [id number] Specialty Bible Reader 01/31/14 Pharmacy Teacher Relationship Specialty Start Date End Date Mo Johnston MD [address] [place], [place] [id number] PCP - General Family Practice 05/02/13 Darell Javier MD [address] [place] [address] Physician Oncology 01/31/14 Rebecca Salcedo (Ns)(Hist) [address] [place] [address] Clinical Nurse Specialist Hematology/Oncology 01/31/14 [place] [address] [place] [address] Specialty Bible Reader 01/31/14 Pharmacy Teacher Relationship Specialty Start Date End Date Mo Johnston MD [address] [place], [place] [id number] PCP - General Family Practice 05/02/13 Darell Javier MD [address] [place] [address] Physician Oncology 01/31/14 Rebecca Salcedo (Ns)(Hist) [address] [place] [address] Clinical Nurse Specialist Hematology/Oncology 01/31/14 Lili Buckley, BLANCA [address] [place] [address] Specialty Bible Reader 01/31/14 Pharmacy Teacher Relationship Specialty Start Date End Date Mo Johnston MD [address] [place] [address] PCP - General Family Practice 05/02/13 Darell Javier MD [address] [place] [address] Physician Oncology 01/31/14 Rebecca Salcedo (Ns)(Hist) [address] [place] [address] Clinical Nurse Specialist Hematology/Oncology 01/31/14 [place] [address] [place] [address] Specialty Bible Reader 01/31/14 Pharmacy Teacher Relationship Specialty Start Date End Date Mo Johnston MD [address] [place] [address] PCP - General Family Practice 05/02/13 Darell Javier MD [address] [place] [address] Physician Oncology 01/31/14 Rebecca Salcedo (Ns)(Hist) [address] [place] [address] Clinical Nurse Specialist Hematology/Oncology 01/31/14 [place] [address] [place] [address] Specialty Bible Reader 01/31/14 Pharmacy Teacher Relationship Specialty Start Date End Date Mo Johnston MD [address] [place] [address] PCP - General Family Practice 05/02/13 Darell Javier MD [address] [place] [address] Physician Oncology 01/31/14 Rebecca Salcedo (Ns)(Hist) [address] [place] [address] Clinical Nurse Specialist Hematology/Oncology 01/31/14 [place] [address] [place] [address] Specialty Bible Reader 01/31/14 Pharmacy Teacher Relationship Specialty Start Date End Date Mo Johnston MD [address] [place] [address] PCP - General Family Practice 05/02/13 Darell Javier MD [address] [place] [address] Physician Oncology 01/31/14 Rebecca Salcedo (Ns)(Hist) [address] [place] [address] Clinical Nurse Specialist Hematology/Oncology 01/31/14 [place] [address] [place] [address] Specialty Bible Reader 01/31/14 Pharmacy Teacher Relationship Specialty Start Date End Date Mo Johnston MD [address] [place] [address] PCP - General Family Practice 05/02/13 Darell Javier MD [address] [place] [address] Physician Oncology 01/31/14 Rebecca Salcedo (Ns)(Hist) [address] [place] [address] Clinical Nurse Specialist Hematology/Oncology 01/31/14 [place] [address] [place] [address] Specialty Bible Reader 01/31/14 Pharmacy Teacher Relationship Specialty Start Date End Date Mo Johnston MD [address] [place] [address] PCP - General Family Practice 05/02/13 Darell Javier MD [address] [place] [address] Physician Oncology 01/31/14 Rebecca Salcedo (Ns)(Hist) [address] [place] [address] Clinical Nurse Specialist Hematology/Oncology 01/31/14 Lili Buckley, BLANCA [address] [place] [address] Specialty Bible Reader 01/31/14 Pharmacy Teacher Relationship Specialty Start Date End Date Mo Johnston MD [address] [place] [address] PCP - General Family Practice 05/02/13 Darell Javier MD [address] [place] [address] Physician Oncology 01/31/14 [facility] [address] [place] [address] Clinical Nurse Specialist Hematology/Oncology 01/31/14 Lili Buckley, BLANCA [address] [place] [address] Specialty Bible Reader 01/31/14 Pharmacy Teacher Relationship Specialty Start Date End Date Mo Johnston MD [address] [place] [address] PCP - General Family Practice 05/02/13 Darell Javier MD [address] [place] [address] Physician Oncology 01/31/14 Rebecca Salcedo (Ns)(Hist) [address] [place] [address] Clinical Nurse Specialist Hematology/Oncology 01/31/14 [place] [address] [place] [address] Specialty Bible Reader 01/31/14 Pharmacy Teacher Relationship Specialty Start Date End Date Mo Johnston MD [address] [place] [address] PCP - General Family Medicine 05/02/13 Darell Javier MD [address] [place] [address] Physician Oncology 01/31/14 Rebecca Salcedo (Ns)(Hist) [address] [place] [address] Clinical Nurse Specialist Hematology/Oncology 01/31/14 [place] [address] [place] [address] Specialty Bible Reader 01/31/14 Pharmacy Teacher Relationship Specialty Start Date End Date Mo Johnston MD [address] [place] [address] PCP - General Family Medicine 05/02/13 Darell Javier MD [address] [place] [address] Physician Oncology 01/31/14 Rebecca Salcedo (Ns)(Hist) [address] [place] [address] Clinical Nurse Specialist Hematology/Oncology 01/31/14 Lili Buckley, BLANCA [address] [place] [address] Specialty Bible Reader 01/31/14 Pharmacy Teacher Relationship Specialty Start Date End Date Mo Johnston MD [address] [place], [place] [phone] PCP - General Family Medicine 05/02/13 Darell Javier MD [address] [place] [address] Physician Oncology 01/31/14 Rebecca Salcedo (Ns)(Hist) [address] [place] [address] Clinical Nurse Specialist Hematology/Oncology 01/31/14 [place] [address] [place] [address] Specialty Bible Reader 01/31/14 Pharmacy Teacher Relationship Specialty Start Date End Date Mo Johnston MD [address] [place] [address] PCP - General Family Medicine 05/02/13 Darell Javier MD [address] [place] [address] Physician Oncology 01/31/14 Rebecca Salcedo (Ns)(Hist) [address] [place] [address] Clinical Nurse Specialist Hematology/Oncology 01/31/14 [place] [address] [place] [address] Specialty Bible Reader 01/31/14 Pharmacy Teacher Relationship Specialty Start Date End Date Mo Johnston MD [address] [place], [place] [id number] [phone] PCP - General Family Medicine 05/02/13 Darell Javier MD [address] [place] [address] Physician Oncology 01/31/14 Rebecca Salcedo (Ns)(Hist) [address] [place] [address] Clinical Nurse Specialist Hematology/Oncology 01/31/14 [place] [address] [place] [address] Specialty Bible Reader 01/31/14 Pharmacy Teacher Relationship Specialty Start Date End Date Mo Johnston MD [address] [place] [address] PCP - General Family Medicine 05/02/13 Darell Javier MD [address] [place] [address] Physician Oncology 01/31/14 Rebecca Salcedo (Ns)(Hist) [address] [place] [address] Clinical Nurse Specialist Hematology/Oncology 01/31/14 Lili Buckley, BLANCA [address] [place] [address] Specialty Bible Reader 01/31/14 Pharmacy Teacher Relationship Specialty Start Date End Date Mo Johnston MD [address] [place] [address] PCP - General Family Medicine 05/02/13 Darell Javier MD [address] [place] [address] Physician Oncology 01/31/14 Rebecca Salcedo (Ns)(Hist) [address] [place] [address] Clinical Nurse Specialist Hematology/Oncology 01/31/14 Lili Buckley, BLANCA [address] [place] [address] Specialty Bible Reader 01/31/14 Pharmacy Teacher Relationship Specialty Start Date End Date Mo Johnston MD [address] [place] [address] PCP - General Family Medicine 05/02/13 Darell Javier MD [address] [place] [address] Physician Oncology 01/31/14 Rebecca Salcedo (Ns)(Hist) [address] [place] [address] Clinical Nurse Specialist Hematology/Oncology 01/31/14 [place] [address] [place] [address] Specialty Bible Reader 01/31/14 Pharmacy Teacher Relationship Specialty Start Date End Date Mo Johnston MD [address] [place] [address] PCP - General Family Medicine 05/02/13 Darell Javier MD [address] [place] [address] Physician Oncology 01/31/14 Rebecca Salcedo (Ns)(Hist) [address] [place] [address] Clinical Nurse Specialist Hematology/Oncology 01/31/14 Lili Buckley, BLANCA [address] [place] [address] Specialty Bible Reader 01/31/14 Pharmacy Teacher Relationship Specialty Start Date End Date Mo Johnston MD [address] [place] [address] PCP - General Family Medicine 05/02/13 Darell Javier MD [address] [place] [address] Physician Oncology 01/31/14 Rebecca Salcedo (Ns)(Hist) [address] [place] [address] Clinical Nurse Specialist Hematology/Oncology 01/31/14 [place] [address] [place] [address] Specialty Bible Reader 01/31/14 Pharmacy Teacher Relationship Specialty Start Date End Date Mo Johnston MD [address] [place], [place] [id number] PCP - General Family Medicine 05/02/13 Darell Javier MD [address] [place] [address] Physician Oncology 01/31/14 Rebecca Salcedo (Ns)(Hist) [address] [place] [address] Clinical Nurse Specialist Hematology/Oncology 01/31/14 [place] [address] [place] [address] Specialty Bible Reader 01/31/14 Pharmacy Teacher Relationship Specialty Start Date End Date Mo Johnston MD [address] [place] [address] PCP - General Family Medicine 05/02/13 Darell Javier MD [address] [place] [address] Physician Oncology 01/31/14 Rebecca Salcedo (Ns)(Hist) [address] [place] [address] Clinical Nurse Specialist Hematology/Oncology 01/31/14 [place] [address] [place] [address] Specialty Bible Reader 01/31/14 Pharmacy Teacher Relationship Specialty Start Date End Date Mo Johnston MD [address] [place] [address] PCP - General Family Medicine 05/02/13 Darell Javier MD [address] [place] [address] Physician Oncology 01/31/14 Rebecca Salcedo (Ns)(Hist) [address] [place] [address] Clinical Nurse Specialist Hematology/Oncology 01/31/14 [place] [address] [place] [address] Specialty Bible Reader 01/31/14 Pharmacy Teacher Relationship Specialty Start Date End Date oM Johnston MD [address] [place] [address] PCP - General Family Medicine 05/02/13 Darell Javier MD [address] [place] [address] Physician Oncology 01/31/14 Rebecca Salcedo (Ns)(Hist) [address] [place] [address] Clinical Nurse Specialist Hematology/Oncology 01/31/14 Lili Buckley, BLANCA [address] [place] [address] Specialty Bible Reader 01/31/14 Pharmacy Teacher Relationship Specialty Start Date End Date Mo Johnston MD [address] [place] [address] PCP - General Family Medicine 05/02/13 Darell Javier MD [address] [place] [address] Physician Oncology 01/31/14 Rebecca Salcedo (Ns)(Hist) [address] [place] [address] Clinical Nurse Specialist Hematology/Oncology 01/31/14 [place] [address] [place] [address] Specialty Bible Reader 01/31/14 Pharmacy Teacher Relationship Specialty Start Date End Date Mo Johnston MD [address] [place] [address] PCP - General Family Medicine 05/02/13 Darell Javier MD [address] [place] [address] Physician Oncology 01/31/14 Rebecca Salcedo (Ns)(Hist) [address] [place] [address] Clinical Nurse Specialist Hematology/Oncology 01/31/14 [place] [address] [place] [address] Specialty Bible Reader 01/31/14 Pharmacy Teacher Relationship Specialty Start Date End Date Mo Johnston MD [address] [place] [address] PCP - General Family Medicine 05/02/13 Darell Javier MD [facility] [place] [address] Physician Oncology 01/31/14 DurandRebecca Mccracken (Ns)(Hist) [address] [place] [address] Clinical Nurse Specialist Hematology/Oncology 01/31/14 [place] [address] [place] [address] Specialty Bible Reader 01/31/14 Pharmacy Teacher Relationship Specialty Start Date End Date Mo Johnston MD [address] [place] [address] PCP - General Family Medicine 05/02/13 Darell Javier MD [address] [place] [address] Physician Oncology 01/31/14 Rebecca Salcedo (Ns)(Hist) [address] [place] [address] Clinical Nurse Specialist Hematology/Oncology 01/31/14 [place] [address] [place] [address] Specialty Bible Reader 01/31/14 Pharmacy Teacher Relationship Specialty Start Date End Date Mo Johnston MD [address] [place] [address] PCP - General Family Medicine 05/02/13 Darell Javier MD [address] [place] [address] Physician Oncology 01/31/14 Rebecca Salcedo (Ns)(Hist) [address] [place] [address] Clinical Nurse Specialist Hematology/Oncology 01/31/14 [place] [address] [place] [address] Specialty Bible Reader 01/31/14 Pharmacy Teacher Relationship Specialty Start Date End Date Mo Johnston MD [address] [place] [address] PCP - General Family Medicine 05/02/13 Darell Javier MD [address] [place] [address] Physician Oncology 01/31/14 Rebecca Salcedo (Ns)(Hist) [address] [place] [address] Clinical Nurse Specialist Hematology/Oncology 01/31/14 [place] [address] [place] [address] Specialty Bible Reader 01/31/14 Pharmacy Teacher Relationship Specialty Start Date End Date Mo Johnston MD [address] [place] [address] PCP - General Family Medicine 05/02/13 Darell Javier MD [address] [place] [address] Physician Oncology 01/31/14 Rebecca Salcedo (Ns)(Hist) [address] [place] [address] Clinical Nurse Specialist Hematology/Oncology 01/31/14 [place] [address] [place] [address] Specialty Bible Reader 01/31/14 Pharmacy Teacher Relationship Specialty Start Date End Date Mo Johnston MD [address] [place] [address] PCP - General Family Medicine 05/02/13 Darell Javier MD [address] [place] [address] Physician Oncology 01/31/14 Rebecca Salcedo (Ns)(Hist) [address] [place] [address] Clinical Nurse Specialist Hematology/Oncology 01/31/14 [place] [address] [place] [address] Specialty Bible Reader 01/31/14 Pharmacy Teacher Relationship Specialty Start Date End Date Mo Johnston MD [address] [place] [address] PCP - General Family Medicine 05/02/13 Darell Javier MD [address] [place] [address] Physician Oncology 01/31/14 Rebecca Salcedo (Ns)(Hist) [address] [place] [address] Clinical Nurse Specialist Hematology/Oncology 01/31/14 [place] [address] [place] [address] Specialty Bible Reader 01/31/14 Pharmacy Teacher Relationship Specialty Start Date End Date Mo Johnston MD [address] [place] [address] PCP - General Family Medicine 05/02/13 Darell Javier MD [address] [place] [address] Physician Oncology 01/31/14 Rebecca Salcedo (Ns)(Hist) [address] [place] [address] Clinical Nurse Specialist Hematology/Oncology 01/31/14 [place] [address] [place] [address] Specialty Bible Reader 01/31/14 Pharmacy Teacher Relationship Specialty Start Date End Date Mo Johnston MD [address] [place], [place] [address] PCP - General Family Medicine 05/02/13 Darell Javier MD [address] [place] [address] Physician Oncology 01/31/14 Rebecca Salcedo (Ns)(Hist) [address] [place] [address] Clinical Nurse Specialist Hematology/Oncology 01/31/14 [place] [address] [place] [address] Specialty Bible Reader 01/31/14 Pharmacy Teacher Relationship Specialty Start Date End Date Mo Johnston MD [address] [place] [address] PCP - General Family Medicine 05/02/13 Darell Javier MD [address] [place] [address] Physician Oncology 01/31/14 Rebecca Salcedo (Ns)(Hist) [address] [place] [address] Clinical Nurse Specialist Hematology/Oncology 01/31/14 [place] [address] [place] [address] Specialty Bible Reader 01/31/14 Pharmacy Teacher Relationship Specialty Start Date End Date Mo Johnston MD [address] [place] [address] PCP - General Family Medicine 05/02/13 Darell Javier MD [address] [place] [address] Physician Oncology 01/31/14 Rebecca Salcedo (Ns)(Hist) [address] [place] [address] Clinical Nurse Specialist Hematology/Oncology 01/31/14 Lili Buckley, BLANCA [address] [place] [address] Specialty Bible Reader 01/31/14 Pharmacy Teacher Relationship Specialty Start Date End Date Mo Johnston MD [address] [place], [place] [id number] PCP - General Family Medicine 05/02/13 Pharmacy Teacher Relationship Specialty Start Date End Date Mo Johnston MD [address] [place], [place] [id number] PCP - General Family Medicine 05/02/13 FOR RECORDS PERTAINING TO PATIENTS WHO ARE OR HAVE BEEN ENROLLED IN A CHEMICAL DEPENDENCY/SUBSTANCEABUSE PROGRAM, SOME INFORMATION MAY BE OMITTED. This clinical summary was aggregated from multiple sources. Caution should be exercised in using it in the provision of clinical care. This summary normalizes information from multiple sources, and as a consequence, information in this document may materially change the coding, format and clinical context of patient data. In addition, data may be omitted in some cases. CLINICAL DECISIONS SHOULD BE BASED ON THE PRIMARY CLINICAL RECORDS. [facility]. provides no warranty or guarantee of the accuracy or completeness of information in this document.
== END | disposition home or self-care (01) ==
PROVIDERS: PCP Family Medicine; Referring Provider Internal Medicine Cardiovascular Disease; Visit Provider Internal Medicine Cardiovascular Disease
DX: I25.10 Atherosclerotic heart disease of native coronary artery without angina pectoris (principal)
CPT/HCPCS: 93306

== ENCOUNTER → 2023-07-23 | Outpatient (CLI) | payer MEDICARE, SELFPAY ==
--- NOTE | 2023-07-23 08:57 | US_ITS ---
STUDY: ABDOMINAL ULTRASOUND - RIGHT UPPER QUADRANT; ELASTOGRAPHY REASON FOR VISIT: Male, 62 years old. HERNANDEZ TECHNIQUE: Ultrasound evaluation of the right upper quadrant was performed with real-time and static kohli-scale imaging. Point quantification shear wave elastography was performed ([place]). TECHNICAL QUALITY: Adequate. COMPARISON: Comparison is made with prior study January 15, 2014. FINDINGS: Liver: The liver measures 14.3 cm. There is normal echogenicity of the liver. The bile ducts are within normal limits. There is hepatic color flow. The direction of portal flow is hepatopetal. There is no demonstrated mass lesion. Median liver stiffness measured 7.4 kPa. Gallbladder: The patient is status post cholecystectomy. Common Bile Duct (C.B.D.): The common bile duct measures 4 mm. Pancreas: The pancreas was not visualized due to overlying bowel gas. Right Kidney: Normal size of the right kidney. The right kidney measures 11.7 cm x 6.3 cm x 6.3 cm. Normal renal cortex. The right cortex measures 2.1 cm. Multiple cysts are seen in the right kidney. The largest is in the inferior pole and measures 3.2 cm x 3.5 centers by 2.9 cm. There is no right hydronephrosis. US/ABD Limited w/ Elastography IMPRESSION: 1. Liver stiffness measures 7.4 kPa compatible with F2-F3 (Mild to moderate liver fibrosis) Metavir score. Electronically Signed: Claudy Bergeron MD at 12:47 EDT ,
== END | disposition home or self-care (01) ==
LOC: US 08:55
PROVIDERS: PCP Family Medicine; Referring Provider Family Medicine; Visit Provider Family Medicine
DX: K75.81 Nonalcoholic steatohepatitis (NASH) (principal); K76.0 Fatty (change of) liver, not elsewhere classified
CPT/HCPCS: 76705; 76981